=== PATIENT | female | born 1960 | race Caucasian/White ===

== ENCOUNTER → 2019-05-23 09:14 | Outpatient (BNVA) | payer MEDICARE, SELFPAY | PROVIDERS: Family Provider Registered Nurse; PCP Registered Nurse; Visit Provider Registered Nurse | DX: L57.0 Actinic keratosis (principal) | CPT/HCPCS: 88305 ==

== ENCOUNTER 2019-05-31 13:15 | Outpatient (CLI) | payer MEDICARE, SELFPAY ==
--- NOTE | 2019-05-31 13:41 | XR_ITS ---
WS: [id number] SHOULDER RIGHT TECHNIQUE: 3 views of the right shoulder CLINICAL INFORMATION: PAIN IN RIGHT SHOULDER COMPARISON: None. FINDINGS: Mild degenerative narrowing at the AC joint. Moderate downsloping of the acromion. Narrowing of the s ubacromial space. Degenerative arthritis the glenohumeral joint. No acute fractures. Osteopenia. XR/XR shoulder RT min 2V* [id number] IMPRESSION: Rotator cuff arthropathy with moderate degenerative narrowing of the glenohumer al joint. No acute fractures.
== END 2019-05-31 13:16 | disposition home or self-care (01) ==
LOC: RADWPI 13:21
PROVIDERS: Family Provider Registered Nurse; PCP Registered Nurse; Visit Provider Anesthesiology Pain Medicine
DX: M12.811 Other specific arthropathies, not elsewhere classified, right shoulder (principal)
CPT/HCPCS: 73030

== ENCOUNTER → 2019-07-09 13:30 | Outpatient (BNVA) | payer MEDICARE, SELFPAY | PROVIDERS: Family Provider Registered Nurse; PCP Registered Nurse; Visit Provider Specialist | DX: G80.9 Cerebral palsy, unspecified (principal); G40.109 Localization-related (focal) (partial) symptomatic epilepsy and epileptic syndromes with simple partial seizures, not intractable, without status epilepticus; F17.210 Nicotine dependence, cigarettes, uncomplicated | CPT/HCPCS: 99213 ==

== ENCOUNTER → 2019-09-18 09:54 | Outpatient (BNVA) | payer MEDICARE, SELFPAY | PROVIDERS: Family Provider Registered Nurse; PCP Registered Nurse; Visit Provider Internal Medicine Cardiovascular Disease | DX: E78.5 Hyperlipidemia, unspecified (principal) | CPT/HCPCS: 80061 ==

== ENCOUNTER → 2020-01-07 10:43 | Outpatient (BNVA) | payer MEDICARE, SELFPAY | PROVIDERS: Family Provider Registered Nurse; PCP Registered Nurse; Visit Provider Registered Nurse | DX: I10 Essential (primary) hypertension (principal); R53.83 Other fatigue | CPT/HCPCS: 80053; 82607 ==

== ENCOUNTER 2020-01-29 10:32 | Outpatient (CLI) | payer MEDICARE, SELFPAY ==
--- NOTE | 2020-01-29 11:30 | MM_ITS ---
WS: [id number] BILATERAL SCREENING DIGITAL MAMMOGRAM WITH CAD HISTORY: screening breast cancer COMPARISON: 11/17/2018 and 08/01/2017 Bilateral CC and MLO views submitted. Computer aided detection analyzed. Breast composition: There are scattered areas of fibroglandular density. No suspicious masses, microc alcifications or architectural distortion. Benign calcifications in each breast. MM/[place] [id number] IMPRESSION: BI-RADS: 2-Benign FOLLOW UP: 1 Year Follow-up
== END 2020-01-29 10:33 | disposition home or self-care (01) ==
LOC: RADSHAW 10:35
PROVIDERS: PCP Registered Nurse; Visit Provider Nurse Practitioner Women's Health
DX: Z12.31 Encounter for screening mammogram for malignant neoplasm of breast (principal)
CPT/HCPCS: 77067

== ENCOUNTER → 2020-04-29 08:36 | Outpatient (BNVA) | payer MEDICARE, SELFPAY | PROVIDERS: PCP Registered Nurse; Visit Provider Internal Medicine Cardiovascular Disease | DX: E78.2 Mixed hyperlipidemia (principal) | CPT/HCPCS: 80061 ==

== ENCOUNTER → 2020-07-07 12:31 | Outpatient (BNVA) | payer MEDICARE, SELFPAY | PROVIDERS: PCP Registered Nurse; Visit Provider Specialist | DX: G40.219 Localization-related (focal) (partial) symptomatic epilepsy and epileptic syndromes with complex partial seizures, intractable, without status epilepticus (principal); G80.9 Cerebral palsy, unspecified; F17.210 Nicotine dependence, cigarettes, uncomplicated | CPT/HCPCS: 99213; 99214 ==

== ENCOUNTER 2020-08-28 18:43 | Emergency (ER) | payer MEDICARE, SELFPAY ==
[2020-08-28 19:13] VITALS: BP 158/79; PULSE 68; RESP 16; TEMP 36.2; O2SAT 96; BMI 28.3
--- NOTE | 2020-08-28 19:16 | XRR_ITS ---
PROCEDURE INFORMATION: Exam: XR Right Knee Exam date and time: 08/28/2020 7:20 PM Age: 60 years old Clinical indication: Injury or trauma; Fall; Blunt trauma; Knee; Right; Prior surgery; Surgery date: 6+ months; Additional info: Fall, right knee pain TECHNIQUE: Imaging protocol: XR Right knee. Views: 3 views. COMPARISON: No relevant prior studies available. FINDINGS: Nondisplaced oblique fracture of the patella is noted. No other fracture is seen. The joint spaces appear preserved. A suprapatellar joint effusion is noted. XR/XR knee RT 3V* [id number] IMPRESSION: Nondisplaced patellar fracture.
--- NOTE | 2020-08-28 20:47 | ED_ITS ---
HPI - Extremity Problem General: Chief complaint: Extremity Injury, Lower Stated complaint: fell, knee injury Time Seen by Provider: 08/28/20 20:31 Source: patient Mode of arrival: ambulatory Limitations: no limitations History of Present Illness: HPI Narrative: 60-year-old female states she tripped and fall this evening and landed directly onto her right knee. Should she had right knee pain since then is unable to bend her knee. States the pain is sharp in nature and rates it a 6 out of 10. She denies any hip pain. Denies any other injuries. She denies hitting her head denies any neck pain. Associated symptoms: Deny chest pain, fever(s) or rash Review of Systems Const: Denies: fever(s), chills, body aches or change in appetite Eyes: Denies: blurry vision or eye discomfort ENMT: Denies: throat pain or dental pain Card: Denies: chest pain Resp: Denies: dyspnea GI: Denies: abdominal pain, nausea, vomiting or diarrhea : Denies: dysuria Musc: Reports: extremity pain Skin/Breast: Denies: rash Neuro: Denies: headache(s) Psych: Denies: depression Elliot/Lymph: Denies: easy bruising All/Imm: Denies: urticaria PFSH ED PFSH: Medical History Abuse of smoked substance Arrhythmia, atrial Chronic back pain Chronic migraine without aura, intractable, with status migrainosus Complex partial epilepsy COPD, mild Enrolled in chronic care management Essential hypertension Mixed hyperlipidemia Obstructive sleep apnea RLS (restless legs syndrome) SVT (supraventricular tachycardia) Surgical History History of radiofrequency ablation procedure for cardiac arrhythmia (~2017) History of tonsillectomy and adenoidectomy Hx of hysterectomy (~1998) POLLY---one ovary spared; performed by Sanna Hx of knee surgery (~02/2016) right knee Family History Mother Breast cancer 45 Family/Other Breast cancer Breast cancer---- Maternal aunt x 5 Other Heart disease Hypertension Hypothyroid Stroke Denies family history of Colon cancer Ovarian cancer Diabetes Uterine cancer Social History Additional social history: - Tobacco use: Current everyday smoker; 0.5pk daily Alcohol use: Denies Drug use: Denies Physical Exam Const: COMMON NORMALS: no acute distress, patient oriented x3 and healthy appearing HENMT: COMMON NORMALS: normocephalic and atraumatic HEAD & SCALP: normocephalic and atraumatic Eye: COMMON NORMALS: Equal, round and reactive pupils present and EOMs intact bilaterally PUPIL: Yes Equal, round and reactive pupils present Neck/C-Spine: COMMON NORMALS: full ROM and supple Chest: COMMONS NORMALS: normal inspection of the chest and normal palpation of entire chest wall Resp: COMMON NORMALS: normal respiratory effort, No retractions, No use of accessory muscles and clear to auscultation bilaterally AUSCULTATION: clear to auscultation bilaterally Cardio: COMMON NORMALS: regular rate, regular rhythm and No murmurs present (Cardio) RATE: regular rate RHYTHM: regular rhythm GI: COMMON NORMALS: Normal to inspection, nondistended, normoactive bowel sounds present, Soft to palpation, non-tender and no masses PALPATION: Yes Soft to palpation Extremity: NARRATIVE EXTREMITY EXAM: Tenderness over right patella with some swelling distal pulses intact. Neuro: COMMON NORMALS: patient oriented x3, moves all extremities and no focal motor deficits Psych: COMMON NORMALS: mental status grossly normal, Normal thought process present and cooperative THOUGHT PROCESS: Normal thought process present Skin: COMMON NORMALS: no rashes or lesions noted and no wounds GENERAL SKIN EXAM: no rashes or lesions noted Course Vital Signs: Vital signs: Vital Signs Temperature 97.1 F L 08/28/20 19:13 Pulse Rate 68 08/28/20 19:13 Respiratory Rate 16 08/28/20 19:13 Blood Pressure 158/79 08/28/20 19:13 Pulse Oximetry 96 08/28/20 19:13 MDM - Extremity (Nontraumatic) MDM Narrative: Medical decision making narrative: Patient presents with a patellar fracture from a fall. She has no other signs of injuries and had no head injury. Patient placed in a knee immobilizer and crutches and to follow-up with orthopedics. She is return if worsening. Discharge Plan Discharge Patient Disposition: Home Clinical Impression: Fracture, patella Qualifiers: Encounter type: initial encounter Fracture type: closed Fracture morphology: other fracture Laterality: right Qualified Code(s): S82.091A - Other fracture of right patella, initial encounter for closed fracture Condition: Stable Prescriptions: New hydrocodone-acetaminophen 5-325 mg tablet 1 tab PO Q6H PRN (Reason: pain) Qty: 14 RF: 0 No Action Symbicort 160-4.5 mcg/actuation HFA aerosol inhaler 2 puff INHALATION ONCE RF: 0 lidocaine (PF) 20 mg/mL (2 %) solution 20 mg SUBCUT ONCE Qty: 1 RF: 0 lamotrigine [Lamictal] 150 mg tablet 150 mg PO BID Qty: 540 RF: 3 fluticasone propionate [Flonase Allergy Relief] 50 mcg/actuation spray,suspension 1 spray INTRANASAL DAILY Qty: 16 RF: 2 tramadol 50 mg tablet 50 mg PO BID PRNRF: 0 atorvastatin 40 mg tablet 40 mg PO DAILY Qty: 90 RF: 3 diltiazem HCl [Cardizem CD] 240 mg capsule,extended release 24hr 240 mg PO DAILY Qty: 90 RF: 3 lisinopril 10 mg tablet See Rx Instructions .ROUTE .COMPLEX Qty: 90 RF: 3 albuterol sulfate [Ventolin HFA] 90 mcg/actuation HFA aerosol inhaler See Rx Instructions .ROUTE .COMPLEX Qty: 18 RF: 0 albuterol sulfate 90 mcg/actuation HFA aerosol inhaler See Rx Instructions .ROUTE .COMPLEX Qty: 6.7 RF: 2 baclofen 10 mg tablet See Rx Instructions .ROUTE .COMPLEX Qty: 90 RF: 0 meloxicam 15 mg tablet See Rx Instructions .ROUTE .COMPLEX Qty: 90 RF: 0 estradiol 1 mg tablet 1.5 mg PO DAILY Qty: 135 RF: 3 Flovent HFA 110 mcg/actuation HFA aerosol inhaler See Rx Instructions .ROUTE .COMPLEX Qty: 12 RF: 0 Discharge Orders: Discharge ED (Routine); Ordered 08/28/20 Ordered By: Hawk Carson Referrals: Rai Tinoco DO [Physician] - 1-3 days Roberto Pettit FNP [Primary Care Provider] - Discharge Diet: Advance as tolerated Discharge Activity: Resume usual activity Patient Instructions: Patellar Fracture (ED), Opioid Safety Coding Level of Care Code ED Radial Drill Press Set Up Operator for Duane Golden
--- NOTE | 2020-08-29 11:32 | DCPLANNER ---
clinical engineering manager had message to schedule a follow up appointment for patient with ortho for patella fracture. clinical engineering manager called the ortho clinic, spoke with Blanka, gave clinic patients information. clinical engineering manager was told that patients information would be printed and reviewed. Clinic will call patient with appointment information.
--- NOTE | 2020-09-05 15:20 | DCPLANNER ---
Patient had a follow up appointment scheduled for 09.02.[address] Tinoco at [facility] - patient did attend appointment.
== END 2020-08-28 21:07 | disposition home or self-care (01) ==
PROVIDERS: Emergency Provider Emergency Medicine; PCP Registered Nurse
DX: S82.091A Other fracture of right patella, initial encounter for closed fracture (principal); W01.0XXA Fall on same level from slipping, tripping and stumbling without subsequent striking against object, initial encounter; J44.9 Chronic obstructive pulmonary disease, unspecified; I10 Essential (primary) hypertension; E78.2 Mixed hyperlipidemia; F17.210 Nicotine dependence, cigarettes, uncomplicated
CPT/HCPCS: 29530; 73562; 99283; E0114

== ENCOUNTER 2020-09-09 07:03 | Outpatient (CLI) | payer MEDICARE, SELFPAY ==
--- NOTE | 2020-09-09 07:15 | USCV_ITS ---
PaulPerla de jesus Age: 60 Gender: F : 1960 Exam Date: 09/09/2020 07:28 Ordering Phys: Roberto Pettit REFINING EQUIPMENT OPERATOR Technologist: TOD [place] [facility] [place]: [place]IN, SWELLING HISTORY: PT INFORMED ME AFTER EXAM THAT SHE HAS RIGHT BROKEN KNEECAP PROCEDURES: Venous duplex imaging was performed in only the right lower extremity. The following venous structures were evaluated: common femoral vein, profunda vein, proximal portion of the greater saphenous vein, superficial femoral vein, and the popliteal vein. In addition, the posterior tibial and peroneal trunk were evaluated. FINDINGS: Normal 2-D Doppler and augmentation and compressibility throughout the lower extremity venous structures. Additional imaging through the proximal calf veins also reveals no thrombus. Limited evaluation of the greater saphenous vein is patent with no thrombus.. CONCLUSIONS No evidence of DVT in the above-mentioned identifiable veins. Dr Edouard Parsons MD [facility] (Electronically Signed) Final Date: 15 Sep 2020 10:42 S
== END 2020-09-09 07:04 | disposition home or self-care (01) ==
PROVIDERS: PCP Registered Nurse; Visit Provider Registered Nurse
DX: I82.409 Acute embolism and thrombosis of unspecified deep veins of unspecified lower extremity (principal); M79.604 Pain in right leg; M79.89 Other specified soft tissue disorders
CPT/HCPCS: 93971

== ENCOUNTER → 2020-09-23 11:05 | Outpatient (BNVA) | payer MEDICARE, SELFPAY | PROVIDERS: PCP Registered Nurse; Visit Provider Orthopaedic Surgery | DX: S82.091D Other fracture of right patella, subsequent encounter for closed fracture with routine healing (principal); X58.XXXD Exposure to other specified factors, subsequent encounter | CPT/HCPCS: 73560 ==

== ENCOUNTER → 2020-09-30 09:24 | Outpatient (BNVA) | payer MEDICARE, SELFPAY | PROVIDERS: PCP Registered Nurse; Visit Provider Internal Medicine Cardiovascular Disease | DX: E78.2 Mixed hyperlipidemia (principal) | CPT/HCPCS: 80061 ==

== ENCOUNTER 2020-10-06 13:01 | Outpatient (CLI) | payer MEDICARE, SELFPAY ==
--- NOTE | 2020-10-06 13:12 | XRR_ITS ---
PROCEDURE INFORMATION: Exam: XR Right Foot Exam date and time: 10/06/2020 1:12 PM Age: 60 years old Clinical indication: Pain and injury or trauma; Fall; Sprain or strain; Ankle and foot; Right; Injury date: 5 weeks ago; Additional info: M79.671 - pain in right foot TECHNIQUE: Imaging protocol: XR Right foot. Views: 1 or 2 views. COMPARISON: CR Foot 3 views, RIGHT* [id number] 07/23/2014 12:25 PM FINDINGS: Bones/joints: Negative for acute bony abnormality. Bone spur present on the inferior calcaneus.. Soft tissues: Normal. XR/XR foot RT 2V [id number] IMPRESSION: 1. No acute findings. 2. Bone spur calcaneus
--- NOTE | 2020-10-06 13:12 | XRR_ITS ---
PROCEDURE INFORMATION: Exam: XR Right Ankle Exam date and time: 10/06/2020 1:12 PM Age: 60 years old Clinical indication: Pain and injury or trauma; Fall; Sprain or strain; Ankle and foot; Right; Injury date: 5 weeks ago; Additional info: M25.571 - pain in right ankle and joints of right foot TECHNIQUE: Imaging protocol: XR Right ankle. Views: 3 or more views. COMPARISON: CR Foot 3 views, RIGHT* [id number] 07/23/2014 12:25 PM FINDINGS: Bones/joints: Negative for acute bony abnormality Soft tissues: Normal. XR/XR ankle RT min 3V* [id number] IMPRESSION: No acute findings.
== END 2020-10-06 13:02 | disposition home or self-care (01) ==
PROVIDERS: PCP Registered Nurse; Visit Provider Registered Nurse
DX: M25.571 Pain in right ankle and joints of right foot (principal); M79.671 Pain in right foot; M77.31 Calcaneal spur, right foot
CPT/HCPCS: 73610; 73620

== ENCOUNTER → 2020-10-23 14:39 | Outpatient (BNVA) | payer MEDICARE, SELFPAY | PROVIDERS: PCP Registered Nurse; Visit Provider Orthopaedic Surgery | DX: S82.091A Other fracture of right patella, initial encounter for closed fracture (principal) | CPT/HCPCS: 73560 ==

== ENCOUNTER → 2020-12-09 10:51 | Outpatient (BNVA) | payer MEDICARE, SELFPAY | PROVIDERS: PCP Registered Nurse; Visit Provider Orthopaedic Surgery | DX: S82.091D Other fracture of right patella, subsequent encounter for closed fracture with routine healing (principal); X58.XXXD Exposure to other specified factors, subsequent encounter | CPT/HCPCS: 73560 ==

== ENCOUNTER 2020-12-16 10:29 | Outpatient (RCR) | payer MEDICARE, SELFPAY | END 2020-12-16 23:59 | disposition home or self-care (01) | LOC: SPT 10:29 | PROVIDERS: PCP Registered Nurse; Referring Provider Orthopaedic Surgery; Visit Provider Orthopaedic Surgery | DX: S82.001D Unspecified fracture of right patella, subsequent encounter for closed fracture with routine healing (principal); X58.XXXD Exposure to other specified factors, subsequent encounter | CPT/HCPCS: 97161 ==

== ENCOUNTER 2020-12-17 06:00 | Outpatient (RCR) | payer MEDICARE, SELFPAY | END 2021-01-15 23:59 | disposition home or self-care (01) | LOC: SPT 06:00 | PROVIDERS: PCP Registered Nurse; Referring Provider Orthopaedic Surgery; Visit Provider Orthopaedic Surgery | DX: S82.001D Unspecified fracture of right patella, subsequent encounter for closed fracture with routine healing (principal); X58.XXXD Exposure to other specified factors, subsequent encounter | CPT/HCPCS: 97110 ==

== ENCOUNTER → 2021-01-08 09:38 | Outpatient (BNVA) | payer MEDICARE, SELFPAY | PROVIDERS: PCP Registered Nurse; Visit Provider Registered Nurse | DX: G89.29 Other chronic pain; I10 Essential (primary) hypertension; M54.5 Low back pain | CPT/HCPCS: 80053; 85025 ==

== ENCOUNTER 2021-01-16 06:00 | Outpatient (RCR) | payer MEDICARE, SELFPAY | END 2021-02-15 23:59 | disposition home or self-care (01) | LOC: SPT 06:00 | PROVIDERS: PCP Registered Nurse; Referring Provider Orthopaedic Surgery; Visit Provider Orthopaedic Surgery | DX: S82.001D Unspecified fracture of right patella, subsequent encounter for closed fracture with routine healing (principal); X58.XXXD Exposure to other specified factors, subsequent encounter | CPT/HCPCS: 97110 ==

== ENCOUNTER → 2021-01-20 10:47 | Outpatient (BNVA) | payer MEDICARE, SELFPAY | PROVIDERS: PCP Registered Nurse; Visit Provider Orthopaedic Surgery | DX: S82.091A Other fracture of right patella, initial encounter for closed fracture (principal); X58.XXXA Exposure to other specified factors, initial encounter | CPT/HCPCS: 73560 ==

== ENCOUNTER 2021-02-13 14:37 | Outpatient (CLI) | payer MEDICARE, SELFPAY ==
--- NOTE | 2021-02-13 16:00 | MR_ITS ---
WS: [id number] MRI RIGHT KNEE HISTORY: T14.8XXA - Other injury of unspecified body region, patient fell 2 months ago. COMPARISON: 01/20/2021 Anterior cruciate ligament: Intact. Posterior cruciate ligament: Intact. Medial collateral ligament: Very small amount of edema along the MCL. No tear. Posterior lateral corner structures: Intact. Medial menisci: Vertical tear in the posterior horn towards the meniscal root. Anterior horn is yael l. Towards the meniscal root and the intercondylar notch is a lobulated soft tissue which is anterior to the PCL. Lateral meniscus: Intact. Normal signal, size and shape. Extensor mechanism: Distal quadriceps tendon is normal. Mild tendinopathy in the proximal patellar te ndon. Fluid and soft tissue: No significant joint effusion. No Benz's cyst. Osseous and articular structures: Patellofemoral compartment: Nondisplaced fracture extending through the mid body of the patella. Ther e is no displacement. Edema still noted along the fracture line in the inferior third of the patella. Small defect in the cartilage at the site of fracture. No displacement. Patellar retinaculum is inta ct. Medial compartment: Very mild narrowing of the medial compartment. Thinning and fissuring of the cart ilage. Lateral compartment: Normal. MR/MR knee RT wo con* [id number] IMPRESSION: 1. Abnormal lobulated soft tissue in the posterior medial knee adjacent to the meniscal root. This may be part of a meniscal tear or free fragment in the shreya nt. There is also an associated vertical tear of the posterior horn medial meni scus. 2. Healing nondisplaced mid patellar fracture with edema. 3. Mild patellar tendinopathy.
== END 2021-02-13 14:38 | disposition home or self-care (01) ==
LOC: RADSHAW 14:41
PROVIDERS: PCP Registered Nurse; Visit Provider Orthopaedic Surgery
DX: S82.001A Unspecified fracture of right patella, initial encounter for closed fracture (principal); W19.XXXA Unspecified fall, initial encounter
CPT/HCPCS: 73721

== ENCOUNTER → 2021-04-01 09:25 | Outpatient (BNVA) | payer MEDICARE, SELFPAY | PROVIDERS: PCP Registered Nurse; Visit Provider Orthopaedic Surgery | DX: M17.11 Unilateral primary osteoarthritis, right knee (principal); S82.001D Unspecified fracture of right patella, subsequent encounter for closed fracture with routine healing; X58.XXXD Exposure to other specified factors, subsequent encounter | CPT/HCPCS: 73560; 73565 ==

== ENCOUNTER → 2021-04-21 11:49 | Outpatient (BNVA) | payer MEDICARE, SELFPAY | PROVIDERS: PCP Registered Nurse; Visit Provider Internal Medicine Cardiovascular Disease | DX: E78.2 Mixed hyperlipidemia (principal) | CPT/HCPCS: 80061 ==

== ENCOUNTER 2021-05-28 10:14 | Outpatient (CLI) | payer MEDICARE, SELFPAY ==
--- NOTE | 2021-05-28 11:00 | MM_ITS ---
WS: [id number] BILATERAL SCREENING DIGITAL MAMMOGRAM WITH CAD HISTORY: Z12.39 - Encounter for other screening for malignant neoplasm... COMPARISON: 01/29/2020 11/17/2018 Bilateral CC and MLO views submitted. Computer aided detection analyzed. Breast composition: There are scattered areas of fibroglandular density. No suspicious masses, microc alcifications or architectural distortion. MM/[place] [id number] IMPRESSION: BI-RADS: 1-Negative FOLLOW UP: 1 Year Follow-up
== END 2021-05-28 10:15 | disposition home or self-care (01) ==
LOC: RADSHAW 10:19
PROVIDERS: PCP Registered Nurse; Visit Provider Nurse Practitioner Women's Health
DX: Z12.31 Encounter for screening mammogram for malignant neoplasm of breast (principal)
CPT/HCPCS: 77067

== ENCOUNTER → 2021-07-07 10:13 | Outpatient (BNVA) | payer MEDICARE, SELFPAY | PROVIDERS: PCP Registered Nurse; Visit Provider Specialist | DX: G40.209 Localization-related (focal) (partial) symptomatic epilepsy and epileptic syndromes with complex partial seizures, not intractable, without status epilepticus (principal); G80.9 Cerebral palsy, unspecified; I47.1 Supraventricular tachycardia | CPT/HCPCS: 99214 ==

== ENCOUNTER 2021-07-28 21:36 | Emergency (ER) | payer SELFPAY ==
[2021-07-28 21:41] VITALS: BP 157/82; PULSE 73; RESP 18; TEMP 36.5; O2SAT 98; BMI 25.4
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
[2021-07-28 21:53] VITALS: BP 157/82; PULSE 73; RESP 18; TEMP 36.5; O2SAT 98
== END 2021-07-28 21:54 | disposition home or self-care (01) ==
PROVIDERS: Emergency Provider Nurse Practitioner Family; PCP Registered Nurse
DX: S51.811A Laceration without foreign body of right forearm, initial encounter (principal); S50.811A Abrasion of right forearm, initial encounter; V40.5XXA Car driver injured in collision with pedestrian or animal in traffic accident, initial encounter
CPT/HCPCS: 99282

== ENCOUNTER 2021-07-31 08:25 | Outpatient (CLI) | payer MEDICARE, SELFPAY ==
--- NOTE | 2021-07-31 09:15 | US_ITS ---
WS: [id number] Gallbladder and right upper quadrant ultrasound, 07/31/2021 Clinical Data: R10.11 - Right upper quadrant pain Comparison: None. Findings: The gallbladder shows no sludge or stone. The wall measures 0.2 cm with no pericholecystic fluid. The common bile duct is 0.5 cm and there are no intrahepatic ductal abnormalities. Liver shows no cysts, masses or dilated intrahepatic ducts. The pancreas is not obscured by overlying bowel gas and no cyst, pseudocyst, or evidence of pancreati tis is noted. Right kidney measures 10.9 cm and no cyst, masses or hydronephrosis can be seen. The aorta show no vascular abnormalities. US/US gall bladder [id number] Impression: Negative gallbladder.
== END 2021-07-31 08:26 | disposition home or self-care (01) ==
LOC: RAD 08:29
PROVIDERS: PCP Registered Nurse; Visit Provider Registered Nurse
DX: R10.11 Right upper quadrant pain (principal)
CPT/HCPCS: 76705

== ENCOUNTER → 2021-08-06 10:49 | Outpatient (BNVA) | payer MEDICARE, SELFPAY | PROVIDERS: PCP Registered Nurse; Visit Provider Registered Nurse | DX: R10.9 Unspecified abdominal pain (principal); R10.11 Right upper quadrant pain; R11.2 Nausea with vomiting, unspecified | CPT/HCPCS: 80053; 80061; 85025; 86140 ==

== ENCOUNTER → 2021-08-10 11:26 | Outpatient (BNVA) | payer MEDICARE, SELFPAY | PROVIDERS: PCP Registered Nurse; Referring Provider Registered Nurse; Visit Provider Surgery | DX: R10.11 Right upper quadrant pain (principal); F17.210 Nicotine dependence, cigarettes, uncomplicated | CPT/HCPCS: 99203 ==

== ENCOUNTER 2021-08-11 10:42 | Outpatient (RCR) | payer MEDICARE, SELFPAY | END 2021-08-15 23:59 | disposition home or self-care (01) | LOC: SPT 10:42 | PROVIDERS: PCP Registered Nurse; Referring Provider Specialist; Visit Provider Specialist | DX: G80.9 Cerebral palsy, unspecified (principal) | CPT/HCPCS: 97161 ==

== ENCOUNTER 2021-08-31 07:49 | Outpatient (CLI) | payer MEDICARE, SELFPAY ==
--- NOTE | 2021-08-31 08:30 | FL_ITS ---
WS: [id number] ESOPHAGRAM WITH FLUOROSCOPY HISTORY: DYSPHAGIA COMPARISON: None available. FLUOROSCOPY TIME: 0min [id number] # of spot films: 150 Esophagus and swallowing function: Patient swallowed the barium mixture without difficulty. No persis tent area of occlusion or stenosis. No mucosal abnormalities. Patient also swallowed the barium table t without difficulty. Mild osteophyte encroachment into the cervical esophagus no high-grade stenosis . Gastroesophageal reflux: None. Hiatal hernia: Small reducible hiatal hernia. FL/FL barium swallow [id number] IMPRESSION: 1. No high-grade stricture or significant stenosis. 2. Small reducible hiatal hernia.
== END 2021-08-31 07:50 | disposition home or self-care (01) ==
PROVIDERS: PCP Registered Nurse; Visit Provider Surgery
DX: R13.10 Dysphagia, unspecified (principal); K44.9 Diaphragmatic hernia without obstruction or gangrene
CPT/HCPCS: 74220

== ENCOUNTER 2021-09-04 07:13 | Outpatient (CLI) | payer MEDICARE, SELFPAY ==
--- NOTE | 2021-09-04 08:00 | NM_ITS ---
WS: [id number] NUCLEAR MEDICINE HIDA SCAN WITH GALLBLADDER EJECTION FRACTION HISTORY: ruq pain COMPARISON: None available. TECHNIQUE: The patient was intravenously injected with 8.1 mCi of TC99m Mebrofenin. Immediate imaging over the right upper quadrant was followed by 5 minute image and additional images for a total of 60 minutes. Normal uptake of radiotracer throughout the liver. Activity identified in the gallbladder at 15 minutes and well distended by 60 minutes. Activity in the proximal small bowel was seen by 60 minutes. Good washout of the radiotracer from the liver by 60 minutes. The patient then drank 8 ounces of Ensure Plus. Ejection fraction at 60 minutes was 72%. Normal GB ej ection fraction is 35-75%. Post fatty meal symptoms: None. NM/NM hepatobiliary w phar* [id number] IMPRESSION: 1. Normal HIDA scan. 2. Normal gallbladder ejection fraction.
== END 2021-09-04 07:14 | disposition home or self-care (01) ==
LOC: RAD 07:15
PROVIDERS: PCP Registered Nurse; Visit Provider Surgery
DX: R10.11 Right upper quadrant pain (principal)
CPT/HCPCS: 78227; A9537

== ENCOUNTER → 2021-09-09 14:27 | Outpatient (BNVA) | payer MEDICARE, SELFPAY | PROVIDERS: PCP Registered Nurse; Visit Provider Surgery | DX: Z09 Encounter for follow-up examination after completed treatment for conditions other than malignant neoplasm (principal); R10.11 Right upper quadrant pain | CPT/HCPCS: 99212 ==

== ENCOUNTER → 2021-10-27 13:40 | Outpatient (BNVA) | payer MEDICARE, SELFPAY | PROVIDERS: PCP Registered Nurse; Visit Provider Internal Medicine Cardiovascular Disease | DX: I47.1 Supraventricular tachycardia (principal); E78.2 Mixed hyperlipidemia; I10 Essential (primary) hypertension; R60.0 Localized edema; G47.33 Obstructive sleep apnea (adult) (pediatric); F17.200 Nicotine dependence, unspecified, uncomplicated | CPT/HCPCS: 99213; 99214 ==

== ENCOUNTER → 2022-04-27 11:51 | Outpatient (BNVA) | payer MEDICARE, SELFPAY | PROVIDERS: PCP Registered Nurse; Visit Provider Internal Medicine Cardiovascular Disease | DX: I47.1 Supraventricular tachycardia (principal); G47.33 Obstructive sleep apnea (adult) (pediatric); E78.2 Mixed hyperlipidemia; I10 Essential (primary) hypertension; F17.200 Nicotine dependence, unspecified, uncomplicated | CPT/HCPCS: 99214 ==

== ENCOUNTER 2022-06-12 10:17 | Emergency (ER) | payer MEDICARE, SELFPAY ==
[2022-06-12] VITALS (26 sets, daily range): BP systolic 116–133; BP diastolic 52–73; PULSE 51–69; RESP 12–30; O2SAT 94–100; BMI 26.7
--- NOTE | 2022-06-12 10:27 | ECG_ITS ---
[facility] Test Date: 2022-06-12 Pat Name: Perla Miller Department: Room: Gender: Female Manager Medicaid: : 1960 Requested By: Bennie Vásquez Order Number: [id number] Cameron MD: Antonio Graves M.D. Measurements Intervals [place] Rate: 51 P: 48 HI: 139 QRS: 119 QRSD: 123 T: 71 QT: 466 QTc: 431 Interpretive Statements SINUS BRADYCARDIA RIGHT AXIS DEVIATION [QRS AXIS > 100] RIGHT BUNDLE BRANCH BLOCK [120+ ms QRS DURATION, UPRIGHT V1, 40+ ms S IN I/aVL/V4/V5/V6] BORDERLINE ST ELEVATION IN INFERIOR LEADS, LIKELY INFARCT, AGE INDETERMINATE Compared to ECG 12/29/2016 15:28:56 Right-axis deviation now present Right bundle-branch block now present ST (T wave) deviation now present Myocardial infarct finding now present Sinus rhythm no longer present Incomplete right bundle-branch block no longer present Atrial abnormality no longer present Electronically Signed On 06-12-2022 12:14:30 ART EDITOR by Antonio Graves M.D. [id number]
--- NOTE | 2022-06-12 10:40 | W.ED.DIZZY ---
HPI - Dizziness General: Chief Complaint: Dizziness Stated Complaint: DIZZINESS Time Seen by Provider: 06/12/22 10:20 Source: patient and EMS Mode of arrival: EMS Limitations: no limitations History of Present Illness: HPI Narrative: 62-year-old female presents to the emergency department after suffering a near syncopal event with dizziness at work. Patient reports she woke up in her usual state of health, had breakfast, drink coffee and was doing her normal routine at work. She suddenly started to feel very weak and dizzy. Her knees almost buckled. She did not have any associated chest pain, shortness of breath, seizure, diaphoresis, nausea, vomiting. She recovered over the next 10 minutes or so. She reports she still feels a little dizzy especially when she turns her head. She does have a headache. She denies any known history of coronary artery disease, thromboembolic disease. She is a longtime smoker with a history of high cholesterol, tacky arrhythmia with a history of ablation(chart review reports SVT), seizure disorder. Associated symptoms: Denies chest pain, chills, headache(s), nausea or vomiting Associated neuro symptoms: Deny numbness in extremities Review of Systems General: Reports: 10 or more systems reviewed and unremarkable except in HPI and below Const: Denies: fever(s), chills or body aches Eyes: Denies: change in vision, blurry vision or photophobia ENMT: Denies: throat pain Card: Reports: lightheadedness and pre-syncope; Denies: chest pain, edema, swelling of feet/ankles or acrocyanosis Resp: Reports: wheezing; Denies: dyspnea, productive cough, pain on inspiration or hemoptysis GI: Denies: abdominal pain, nausea, vomiting or diarrhea : Denies: flank pain, dysuria or urinary frequency Musc: Denies: neck pain, back pain, extremity pain or extremity swelling Skin/Breast: Denies: rash or erythema Neuro: Denies: headache(s), numbness in extremities, weakness in extremities, lack of coordination or difficulty walking PFS ED PFSH: Medical History Abuse of smoked substance Arrhythmia, atrial Chronic back pain Chronic migraine without aura, intractable, with status migrainosus Complex partial epilepsy COPD, mild Enrolled in chronic care management Essential hypertension History of nonmelanoma skin cancer Mixed hyperlipidemia No pertinent past medical history neghx:dm,thyroid PCP: Sumanth Pettit Obstructive sleep apnea RLS (restless legs syndrome) SVT (supraventricular tachycardia) Surgical History History of radiofrequency ablation procedure for cardiac arrhythmia (~2017) History of tonsillectomy and adenoidectomy Hx of hysterectomy (~1998) POLLY---one ovary spared; performed by Sanna Hx of knee surgery (~02/2016) right knee Family History Mother Breast cancer dx--45 Stroke Hypertension Thyroid disease Family/Other Breast cancer Breast cancer---- Maternal aunt x 5 Father Hypertension Denies family history of Colon cancer Ovarian cancer Diabetes Uterine cancer Social History Smoking and tobacco status: current every day smoker (0.5 PPD) Physical Exam Narrative: EXAM NARRATIVE: Patient has the typical appearance of a longtime smoker with changes to the hair, voice ,nails and skin. Const: COMMON NORMALS: no limitations, alert and well nourished EXAM LIMITATIONS: no altered mental status HENMT: COMMON NORMALS: normocephalic, atraumatic and external ears normal HEAD & SCALP: normocephalic and atraumatic EXTERNAL EAR: Yes external ears normal MOUTH: no muffled voice Eye: COMMON NORMALS: EOMs intact bilaterally, conjunctivae normal and no scleral icterus CONJUNCTIVA: Yes conjunctivae normal OTHER: The pupils are equal round and reactive to light. Her extraocular movements are intact. She does have endpoint nystagmus when looking all the way to the right. This could be physiologic or may be a sign of some peripheral vertigo Neck/C-Spine: COMMON NORMALS: no JVD GENERAL: Yes normal visual inspection and Yes trachea midline Resp: COMMON NORMALS: normal respiratory effort and No use of accessory muscles EFFORT & INSPECTION: Yes able to speak in complete sentences OTHER: Wheezing is present on expiration Cardio: COMMON NORMALS: no JVD and regular rhythm; negative for regular rate (Bradycardia) RATE: abnormal rate (Bradycardia) RHYTHM: regular rhythm GI: COMMON NORMALS: Soft to palpation and non-tender PALPATION: Yes Soft to palpation and No Guarding due to palpation present (GI) Extremity: COMMON NORMALS: normal to inspection (No evidence of lower extremity or upper extremity DVT or cellulitis) Neuro: COMMON NORMALS: moves all extremities, no focal motor deficits and no sensory deficits noted SENSORIUM/ORIENTATION: Yes alert SPEECH: speech normal Psych: COMMON NORMALS: mental status grossly normal, Normal thought process present, cooperative, normal affect and speech normal SPEECH: Yes normal speech THOUGHT PROCESS: Normal thought process present Skin: COMMON NORMALS: no rashes or lesions noted, turgor normal and no jaundice GENERAL SKIN EXAM: no rashes or lesions noted and turgor normal Course Vital Signs: Vital signs: Vital Signs Pulse Rate 53 L 06/12/22 13:30 Respiratory Rate 18 06/12/22 13:30 Blood Pressure 123/69 06/12/22 13:30 Pulse Oximetry 98 06/12/22 13:30 Oxygen Delivery Me thod 06/12/22 10:27 MDM - Dizziness Medical Decision Making The patient's EKG taken at 10:[address] elevation of 1 mm at the J-point in leads III and aVF. There is some more subtle ST elevation in lead II. There is no significant reciprocal depression. The T waves in the inferior leads are slightly prominent. No ectopy. This is a sinus bradycardia. I contacted Dr. Elam and he was able to review both this EKG and the previous EKG from December 29, 2016. We have both noted that the ST changes although subtle are present. He would like to do serial EKGs and run troponin. Currently the patient has a headache and feels sort of weak but is otherwise asymptomatic. She has not had any other anginal equivalents. As noted in the physical exam, the patient does have some endpoint nystagmus when looking to the right. She describes a sort of dizziness with the room spinning clockwise. Her ears are unremarkable. She denies any medication changes or skipping any medicines. She had adequate food and drink this morning. She has a chronic sinus bradycardia due to her Cardizem. She does occasionally get vertigo which is also on the differential diagnosis. Her risk factors for acute coronary syndrome include smoking, hypertension, hyperlipidemia. I have a low pretest probability for subarachnoid hemorrhage, subdural, pulmonary embolism, dissection. She currently has no symptoms of acute GI bleeding other than dizziness . She does not have any focal neurologic deficits and CVA seems less likely. Her hints exam was not suggestive of central etiology UPDATE: Serial EKGs were performed. They were unchanged. There was no significant reciprocal change. Initial troponin was normal. A delta troponin 2 hours later was also normal. The patient was given IV fluids, meclizine, scopolamine and her symptoms resolved. Her lab work-up is otherwise unremarkable with the exception of an elevated BUN and BUN to creatinine ratio, mild low sodium, mild anemia. No evidence of urinary tract infection. Again, on repeat assessment, patient asymptomatic and well-appearing. Patient will continue on baby aspirin daily and I have encouraged her to stop smoking. She was given return precautions. She is appropriate for discharge at this time. Lab Data 06/12/22 10:25 06/12/22 10:25 Radiology Impressions Chest X-Ray 06/12/22 10:56 IMPRESSION: No evidence of focal consolidation. COPD changes. Laboratory Results WBC 8.3 10^3/uL (4.0-10.0) 06/12/22 10:25 RBC 3.81 10^6/uL (4.1-5.3) L 06/12/22 10:25 Hgb 11.4 g/dL (11.5-15.3) L 06/12/22 10:25 Hct 37.0 % (37.0-47.0) 06/12/22 10:25 MCV 97.1 fl (81-99) 06/12/22 10:25 MCH 29.9 pg (28.0-34.0) 06/12/22 10:25 MCHC 30.8 g/dL (30.0-36.0) 06/12/22 10:25 RDW 14.8 % (12.1-15.1) 06/12/22 10:25 Plt Count 308 10^3/cmm (130-400) 06/12/22 10:25 MPV 9.3 fL (7.4-10.4) 06/12/22 10:25 Neut % (Auto) 61.6 % 06/12/22 10:25 Lymph % (Auto) 29.6 % 06/12/22 10:25 [place] % (Auto) 7.3 % 06/12/22 10:25 Eos % (Auto) 0.0 % 06/12/22 10:25 Baso % (Auto) 1.1 % 06/12/22 10:25 Neut # (Auto) 5.11 10^3/uL (1.8-7.7) 06/12/22 10:25 Lymph # (Auto) 2.5 10^3/uL (0.8-4.8) 06/12/22 10:25 [place] # (Auto) 0.6 10^3/uL (0.2-0.9) 06/12/22 10:25 Eos # (Auto) 0.0 10^3/uL (0.0-0.8) 06/12/22 10:25 Baso # (Auto) 0.1 10^3/uL (0.0-0.1) 06/12/22 10:25 Nucleated RBC % (auto) 0 % 06/12/22 10:25 Nucleated RBCs # 0.0 /100WBC 06/12/22 10:25 Sodium 134 mmol/L (136-145) L 06/12/22 10:25 Potassium 4.8 mmol/L (3.5-5.1) 06/12/22 10:25 Chloride 100 mmol/L (98-107) 06/12/22 10:25 Carbon Dioxide 23 mmol/L (22-29) 06/12/22 10:25 Anion Gap 15.8 (5-19) 06/12/22 10:25 BUN 30 mg/dL (8-23) H 06/12/22 10:25 Creatinine 0.9 mg/dL (0.5-0.9) 06/12/22 10:25 GFR Calculation 63.7 mL/min (90-130) L 06/12/22 10:25 Glucose 88 mg/dL (65-115) 06/12/22 10:25 Calculated Osmolality 284 mOsm/kg (285-295) L 06/12/22 10:25 Calcium 8.7 mg/dL (8.5-10.5) 06/12/22 10:25 Magnesium 2.2 mg/dL (1.7-2.3) 06/12/22 10:25 Total Bilirubin 0.2 mg/dL (0.15-1.2) 06/12/22 10:25 AST 16 U/L (0-32) 06/12/22 10:25 ALT 7 U/L (0-33) 06/12/22 10:25 Alkaline Phosphatase 68 U/L (35-105) 06/12/22 10:25 Troponin T Baseline 10 ng/L (0-10) 06/12/22 10:25 Troponin T 120 Minute 7.60 ng/L (0-10) 06/12/22 12:43 Total Protein 6.2 g/dL (6.6-8.7) L 06/12/22 10:25 Albumin 3.8 g/dL (3.5-5.2) 06/12/22 10:25 Globulin 2.4 g/dL (1.3-4.6) 06/12/22 10:25 Urine Color Straw (Yellow) 06/12/22 11:10 Urine Appearance Clear (CLEAR) 06/12/22 11:10 Urine pH 5 (5-7) 06/12/22 11:10 Ur Specific [place] 1.010 (1.005-1.030) 06/12/22 11:10 Urine Protein Neg (Negative) 06/12/22 11:10 Urine Glucose (UA) Norm (Normal) 06/12/22 11:10 Urine Ketones Negative (Negative) 06/12/22 11:10 Urine Blood Neg (Negative) 06/12/22 11:10 Urine Nitrate Negative (Negative) 06/12/22 11:10 Urine Bilirubin Neg (Negative) 06/12/22 11:10 Urine Urobilinogen Norm mg/dL (Negative) 06/12/22 11:10 Ur Leukocyte Esterase Negative (Negative) 06/12/22 11:10 Discharge Plan Discharge Patient Disposition: Home Clinical Impression: Positional lightheadedness, Acute dehydration, Abnormal ECG, Smokes tobacco daily Condition: Stable Prescriptions: New Children's Aspirin 81 mg tablet,chewable 81 mg PO DAILY Qty: 30 0RF No Action fluticasone propionate [Flonase Allergy Relief] 50 mcg/actuation spray,suspension 1 spray INTRANASAL DAILY Qty: 16 2RF Rx Instructions: administer into each nostril ciclopirox 8 % solution 1 applic topical DAILY 28 Days Qty: 6.6 6RF Rx Instructions: Apply to nails daily, do not wash nails for 8 hours post application. Remove with alcohol every 7 days. tramadol 50 mg tablet 50 mg PO TID PRN estradiol 1 mg tablet 1.5 mg PO DAILY Qty: 135 3RF methylprednisolone acetate 80 mg/mL suspension 80 mg IM ONCE Qty: 1 0RF benzonatate 100 mg capsule 100 mg PO TID PRN (Reason: cough) Qty: 20 0RF lamotrigine [Lamictal] 150 mg tablet 150 mg PO BID Qty: 180 3RF diltiazem HCl 240 mg capsule,extended release 24hr See Rx Instructions .ROUTE .COMPLEX Qty: 90 2RF Dose Instruction: TAKE 1 CAPSULE EVERY DAY Rx Instructions: TAKE 1 CAPSULE EVERY DAY atorvastatin 40 mg tablet See Rx Instructions .ROUTE .COMPLEX Qty: 90 2RF Dose Instruction: TAKE 1 TABLET EVERY DAY Rx Instructions: TAKE 1 TABLET EVERY DAY lisinopril 10 mg tablet See Rx Instructions .ROUTE .COMPLEX Qty: 90 3RF Dose Instruction: TAKE 1 TABLET EVERY DAY Rx Instructions: TAKE 1 TABLET EVERY DAY mupirocin 2 % ointment 1 applic topical BID Qty: 22 1RF Rx Instructions: Apply to affected area(s) until healed furosemide 20 mg tablet 20 mg PO DAILY PRN (Reason: edema) Qty: 100 3RF potassium chloride 8 mEq capsule, extended release 8 meq PO DAILY Qty: 100 3RF Rx Instructions: Take with Furosemide gabapentin 300 mg capsule 300 mg PO TID Qty: 270 3RF meloxicam 15 mg tablet See Rx Instructions .ROUTE .COMPLEX Qty: 90 0RF Dose Instruction: TAKE 1 TABLET EVERY DAY Rx Instructions: TAKE 1 TABLET EVERY DAY albuterol sulfate 90 mcg/actuation HFA aerosol inhaler See Rx Instructions .ROUTE .COMPLEX Qty: 54 0RF Dose Instruction: INHALE 2 PUFFS BY MOUTH EVERY 6 HOURS NEEDED FOR BRONCHOSPASM Rx Instructions: INHALE 2 PUFFS BY MOUTH EVERY 6 HOURS NEEDED FOR BRONCHOSPASM baclofen 10 mg tablet See Rx Instructions .ROUTE .COMPLEX Qty: 90 0RF Dose Instruction: TAKE 1 TABLET EVERY DAY NEEDED FOR MUSCLE SPASM(S) Rx Instructions: TAKE 1 TABLET EVERY DAY NEEDED FOR MUSCLE SPASM(S) pantoprazole 40 mg tablet,delayed release (DR/EC) See Rx Instructions .ROUTE .COMPLEX Qty: 90 3RF Dose Instruction: TAKE 1 TABLET BY MOUTH DAILY Rx Instructions: TAKE 1 TABLET BY MOUTH DAILY RESENT IN INSURANCE PAYS FOR PT TO GO TO [facility] Discharge Orders: Discharge ED (Routine); Ordered 06/12/22 Ordered By: Bennie Vásquez Referrals: Roberto Pettit, AUTO BODY STRAIGHTENER [Primary Care Provider] - 4-7 days (Near syncope.) Discharge Diet: Advance as tolerated Discharge Activity: Increase activity as tolerated Patient Instructions: Near Syncope (ED), Dizziness (ED) Activity Restrictions/Additional Instructions: Return to ER for recurrent dizziness or symptoms such as chest discomfort, palpitations, unusual sweatng, jaw/arm pain, bloody stools, low blood pressure, or worsening symptoms. Avoid cigarettes as it increases your risk for stroke and heart attack. Coding Level of Care Code ED Mixer Driver for Duane Golden
[2022-06-12] MEDS: meclizine 25 mg tablet PO (10:42)
[2022-06-12] MEDS: sodium chloride 0.9% 500 ML 999 ML IV (10:42)
[2022-06-12] MEDS: acetaminophen 325 mg Tablet 650 MG PO (10:42)
[2022-06-12] MEDS: scopolamine 1.5 Patch 1 PATCH TRANSDERMA (10:42)
[2022-06-12 10:49] LABS: Basophils # 0.1 10^3/uL (0.0-0.1); Basophils % 1.1 %; Hemoglobin 11.4 g/dL (11.5-15.3); Lymphocytes # 2.5 10^3/uL (0.8-4.8); Lymphocytes % 29.6 %; Mean Corpuscular HGB Conc 30.8 g/dL (30.0-36.0); Mean Corpuscular Hemoglobin 29.9 pg (28.0-34.0); Mean Corpuscular Volume 97.1 fl (81-99); Mean Platelet Volume 9.3 fL (7.4-10.4); Monocytes # 0.6 10^3/uL (0.2-0.9); Monocytes % 7.3 %; Neutrophils # 5.11 10^3/uL (1.8-7.7); Neutrophils % 61.6 %; Nucleated Red Blood Cells % 0 %; Platelet Count 308 10^3/cmm (130-400); Red Blood Count 3.81 10^6/uL (4.1-5.3); Red Cell Distribution Width 14.8 % (12.1-15.1); White Blood Count 8.3 10^3/uL (4.0-10.0)
[2022-06-12] MEDS: aspirin 81 mg Chew Tablet 324 MG PO (10:56)
--- NOTE | 2022-06-12 10:56 | ECG_ITS ---
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 Measurements Intervals [place] Rate: 50 P: 55 OK: 138 QRS: 131 QRSD: 126 T: 73 QT: 473 QTc: 434 Interpretive Statements SINUS BRADYCARDIA RIGHT BUNDLE BRANCH BLOCK [120+ ms QRS DURATION, UPRIGHT V1, 40+ ms S IN I/aVL/V4/V5/V6] LEFT POSTERIOR FASCICULAR BLOCK [QRS AXIS > 109, INFERIOR Q] Compared to ECG 06/12/2022 10:33:07 Left posterior fascicular block now present Right-axis deviation no longer present ST (T wave) deviation no longer present Myocardial infarct finding no longer present Electronically Signed On 06-12-2022 12:13:19 RN HEMODIALYSIS CHARGE by Antonio Graves M.D. [email or web address]
--- NOTE | 2022-06-12 10:56 | XRR_ITS ---
PROCEDURE INFORMATION: Exam: XR Chest Exam date and time: 06/12/2022 11:28 AM Age: 62 years old Clinical indication: Other: Dizziness; Additional info: Dizziness, possible acs TECHNIQUE: Imaging protocol: Radiologic exam of the chest. Views: 1 view. COMPARISON: CR XR chest 1V [id number] 12/29/2016 3:24 PM FINDINGS: Lungs: The lungs are somewhat hyperinflated with increased interstitial markings, likely representing COPD. No evidence of focal consolidation to suggest pneumonia. Pleural spaces: Unremarkable. No pleural effusion. No pneumothorax. Heart/Mediastinum: Stable cardiomediastinal silhouette. Bones/joints: Unremarkable. XR/XR chest 1V portable [id number] IMPRESSION: No evidence of focal consolidation. COPD changes.
[2022-06-12 11:04] LABS: Alanine Aminotransferase 7 U/L (0-33); Albumin Level 3.8 g/dL (3.5-5.2); Alkaline Phosphatase 68 U/L (35-105); Blood Urea Nitrogen 30 mg/dL (8-23); Calcium 8.7 mg/dL (8.5-10.5); Carbon Dioxide 23 mmol/L (22-29); Chloride 100 mmol/L (98-107); Globulin 2.4 g/dL (1.3-4.6); Glomerular Filtration Rate 63.7 mL/min (90-130); Glucose 88 mg/dL (65-115); Magnesium 2.2 mg/dL (1.7-2.3); Osmolality Calculated 284 mOsm/kg (285-295); Sodium 134 mmol/L (136-145); Total Bilirubin 0.2 mg/dL (0.15-1.2); Total Protein 6.2 g/dL (6.6-8.7)
[2022-06-12 11:06] LABS: Troponin(5th) Baseline 10 ng/L (0-10)
--- NOTE | 2022-06-12 11:08 | ECG_ITS ---
[facility] Test Date: 2022-06-12 Pat Name: Perla Miller Department: Room: Gender: Female Sales Expert Home Theater: : 1960 Requested By: Bennie Vásquez Order Number: [id number] Cameron MD: Antonio Graves M.D. Measurements Intervals [place] Rate: 50 P: 52 [place]: 137 QRS: 113 QRSD: 124 T: 73 QT: 488 QTc: 449 Interpretive Statements SINUS BRADYCARDIA RIGHT AXIS DEVIATION [QRS AXIS > 100] RIGHT BUNDLE BRANCH BLOCK [120+ ms QRS DURATION, UPRIGHT V1, 40+ ms S IN I/aVL/V4/V5/V6] ST ELEVATION,BORDERLINE Compared to ECG 06/12/2022 10:56:44 Right-axis deviation now present ST (T wave) deviation now present Myocardial infarct finding now present Left posterior fascicular block no longer present Electronically Signed On 06-12-2022 12:18:02 SALES ENABLEMENT MANAGER by Antonio Graves M.D. [id number]
[2022-06-12 11:14] LABS: Anion Gap 15.8 (5-19); Aspartate Amino Transferase 16 U/L (0-32); Potassium 4.8 mmol/L (3.5-5.1)
[2022-06-12 11:23] LABS: Add Urine Microscopic? NO; Charge for UA Resulting for Rev
[2022-06-12 11:30] LABS: Bilirubin Urine Neg (Negative); Blood Urine Neg (Negative); Glucose Urine UA Norm (Normal); Ketones Urine Negative (Negative); Leukocyte Esterase Urine Negative (Negative); Nitrate Urine Negative (Negative); Protein Urine Neg (Negative); Urine Appearance Clear (CLEAR); Urine Color Straw (Yellow); Urobilinogen Urine Norm (Negative); pH Urine 5 (5-7)
[2022-06-12 14:36] LABS: Troponin 5 2HR Delta -2.4 ABS# (0-10)
== END 2022-06-12 14:05 | disposition home or self-care (01) ==
PROVIDERS: Emergency Provider Emergency Medicine; PCP Registered Nurse
DX: R42 Dizziness and giddiness (principal); E86.0 Dehydration; R94.31 Abnormal electrocardiogram [ECG] [EKG]; F17.210 Nicotine dependence, cigarettes, uncomplicated; J44.9 Chronic obstructive pulmonary disease, unspecified; I10 Essential (primary) hypertension; E78.2 Mixed hyperlipidemia
CPT/HCPCS: 71045; 80053; 81003; 83735; 84484; 85025; 93005; 99285; J7040; J8597

== ENCOUNTER 2022-06-24 08:57 | Outpatient (CLI) | payer MEDICARE, SELFPAY ==
--- NOTE | 2022-06-24 09:20 | MM_ITS ---
WS: [id number] Bilateral screening 3D tomosynthesis digital mammogram, 06/24/2022 Clinical Data: SCREENING Comparison: 05/28/2021, 01/29/2020, 11/17/2018, 08/01/2017, 07/27/2016, 07/21/2015, 10/31/2013, 07/15/2011, , 07/18/2009, 07/11/2008, 07/10/2007, 06/20/2006. Findings: The breast parenchymal pattern shows fibroglandular tissue. No spiculated masses or clustered calcifi cations are seen. There are no secondary signs of carcinoma. MM/[place] [id number] Impression: 1. Negative bilateral mammogram unchanged. 2. Recommend annual screening mammograms. BIRADS: 1-Negative FOLLOW UP: 1 Year Follow-up The CAD odd piece checker was used.
== END 2022-06-24 08:58 | disposition home or self-care (01) ==
LOC: RAD 09:02
PROVIDERS: PCP Registered Nurse; Visit Provider Registered Nurse
DX: Z12.31 Encounter for screening mammogram for malignant neoplasm of breast (principal)
CPT/HCPCS: 77063; 77067

== ENCOUNTER → 2022-07-06 10:21 | Outpatient (BNVA) | payer MEDICARE, SELFPAY | PROVIDERS: PCP Registered Nurse; Visit Provider Specialist | DX: G40.219 Localization-related (focal) (partial) symptomatic epilepsy and epileptic syndromes with complex partial seizures, intractable, without status epilepticus (principal); I49.9 Cardiac arrhythmia, unspecified | CPT/HCPCS: 99214 ==

== ENCOUNTER 2022-07-30 10:00 | Outpatient (CLI) | payer MEDICARE, SELFPAY ==
--- NOTE | 2022-07-30 10:15 | XR_ITS ---
WS: [id number] EXAMINATION: XR shoulder LT min 2V* [id number] REASON FOR EXAM: M25.512 - Pain in left shoulder COMPARISON: 2016. ORDER DATE: 07/30/2022 10:17 AM TECHNIQUE: 3 views of the left shoulder were obtained. X-RAY FINDINGS: No fractures or dislocations. Downsloping acromion on process Normal motion of the shoulder with internal/external rotation. Moderate glenohumeral degenerative changes. Acromioclavicular joint narrowing is demonstrated. Limited visualization of the adjacent hemithorax is unremarkable. XR/XR shoulder LT min 2V* [id number] IMPRESSION: No fractures or dislocations. Minor osteoarthritic changes
== END 2022-07-30 10:01 | disposition home or self-care (01) ==
PROVIDERS: PCP Registered Nurse; Visit Provider Registered Nurse
DX: M19.012 Primary osteoarthritis, left shoulder (principal)
CPT/HCPCS: 73030

== ENCOUNTER → 2022-11-09 12:42 | Outpatient (BNVA) | payer MEDICARE, SELFPAY | PROVIDERS: PCP Registered Nurse; Visit Provider Internal Medicine Cardiovascular Disease | DX: R06.02 Shortness of breath (principal); I10 Essential (primary) hypertension | CPT/HCPCS: 80048; 83880; 99214 ==

== ENCOUNTER → 2022-11-10 09:37 | Outpatient (BNVA) | payer MEDICARE, SELFPAY | PROVIDERS: PCP Registered Nurse; Visit Provider Nurse Practitioner Family | DX: L57.0 Actinic keratosis (principal); L40.4 Guttate psoriasis; B35.1 Tinea unguium; L72.0 Epidermal cyst; Z85.828 Personal history of other malignant neoplasm of skin; Z72.0 Tobacco use | CPT/HCPCS: 17000; 99214 ==

== ENCOUNTER 2022-12-09 09:04 | Outpatient (CLI) | payer MEDICARE, SELFPAY ==
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
== END 2022-12-09 09:05 | disposition home or self-care (01) ==
PROVIDERS: PCP Registered Nurse; Visit Provider Registered Nurse
DX: S49.92XA Unspecified injury of left shoulder and upper arm, initial encounter (principal); V89.2XXA Person injured in unspecified motor-vehicle accident, traffic, initial encounter; M19.012 Primary osteoarthritis, left shoulder; M25.812 Other specified joint disorders, left shoulder; M62.512 Muscle wasting and atrophy, not elsewhere classified, left shoulder
CPT/HCPCS: 73221

== ENCOUNTER 2022-12-23 14:12 | Outpatient (RCR) | payer MEDICARE, SELFPAY | END 2023-01-15 23:59 | disposition home or self-care (01) | LOC: SPT 14:12 | PROVIDERS: PCP Nurse Practitioner Family; Visit Provider Nurse Practitioner Family | DX: M75.102 Unspecified rotator cuff tear or rupture of left shoulder, not specified as traumatic (principal) | CPT/HCPCS: 97161 ==

== ENCOUNTER → 2022-12-24 09:23 | Outpatient (BNVA) | payer MEDICARE, SELFPAY | PROVIDERS: PCP Nurse Practitioner Family; Referring Provider Nurse Practitioner Family; Visit Provider Student in an Organized Health Care Education/Training Program | DX: M75.102 Unspecified rotator cuff tear or rupture of left shoulder, not specified as traumatic (principal); M75.42 Impingement syndrome of left shoulder; M19.012 Primary osteoarthritis, left shoulder | CPT/HCPCS: 99204 ==

== ENCOUNTER 2023-01-19 09:31 | Day surgery (SDC) | payer MEDICARE, SELFPAY ==
[2023-01-18 11:37] VITALS: BMI 27.3
[2023-01-19] VITALS (53 sets, daily range): BP systolic 88–174; BP diastolic 49–88; PULSE 54–71; RESP 9–25; TEMP 35.8–36.1; O2SAT 85–100
[2023-01-19] MEDS: sodium chloride 0.9% 1,000 ML 30 ML IV (10:55)
[2023-01-19] MEDS: ketorolac 30 mg/mL INJ IVP (11:00)
[2023-01-19] MEDS: acetaminophen 1,000 MG/100 ML PIGGYBACK 400 MG IV (11:15)
[2023-01-19] MEDS: scopolamine 1.5 Patch 1 PATCH TRANSDERMA (11:20)
[2023-01-19 11:32] LABS: Blood Urea Nitrogen 15 mg/dL (8-23); Calcium 9.2 mg/dL (8.5-10.5); Carbon Dioxide 25 mmol/L (22-29); Chloride 99 mmol/L (98-107); Glomerular Filtration Rate 125.4 mL/min (90-130); Glucose 79 mg/dL (65-115); Osmolality Calculated 280 mOsm/kg (285-295); Sodium 135 mmol/L (136-145)
--- NOTE | 2023-01-19 11:38 | P.ANESASSM_ITS ---
Pre-Anesthetic Assessment Height/Weight: Height 1.52 m Weight 63.503 kg Temp Pulse Resp BP Pulse Ox O2 Del Method 96.5 F L 62 18 168/85 96 Room Air 01/19/23 10:30 01/19/23 10:30 01/19/23 10:30 01/19/23 11:25 01/19/23 10:30 01/19/23 10:30 Operation Date: 01/19/23 11:20 Proposed Procedures p Shoulder Arthroscopy with rotator cuff repair(Left) - Justin Edgefield, DO s Subacromial Decompression(Left) - Justin Edgefield, DO s AC Separation Repair (Shoulder)(Left) - Justin Edgefield, DO Familial anesthetic complications: None Was Beta Jazmine taken within 24 hours: N/A Was Clonidine taken within 24 hours: N/A Last intake: Intake Last Liquid Date 01/18/23 Last Liquid Time 23:00 Last Solid Date 01/18/23 Last Solid Time 22:00 Social Tobacco and No alcohol Exam alert, oriented x 3, clear to auscultation bilaterally and regular rate & rhythm Airway Mallampati: Class II Dentition: full Pulmonary Chronic Obstructive Pulmonary Disease (chronic bronchitis) and Sleep Apnea CV/HEM Arrythmia (SVT s/p ablation several years ago, no further issues) Metabolic Hyperlipidemia Anesthetic Plan ASA status: 3 Anesthesia: General Risk of > 500 ml blood loss (7ml/kg in children): No Other Pertinent Information patient declines block d/t concern for dyspnea post block Medications/Allergies Home Medications Medication Instructions Recorded Confirmed Last Taken Type mupirocin 2 % topical ointment 1 applic topical BID #22 grams 12/29/21 01/19/23 01/17/23 Rx furosemide 20 mg tablet 20 mg PO DAILY PRN edema #100 tabs 03/04/22 01/19/23 01/18/23 08:00 Rx potassium chloride 8 mEq 8 meq PO DAILY #100 caps 03/04/22 01/19/23 01/18/23 Rx capsule,extended release gabapentin 300 mg capsule 300 mg PO TID #270 caps 03/09/22 01/19/23 01/18/23 Rx tramadol 50 mg tablet 50 mg PO TID PRN Pain, Moderate 04/27/22 01/19/23 01/18/23 History lamotrigine 150 mg tablet 150 mg PO BID #180 tabs 07/06/22 01/19/23 01/19/23 05:30 Rx (Lamictal) meloxicam 7.5 mg tablet 7.5 mg PO DAILY 90 days #90 tabs 08/10/22 01/19/23 01/18/23 07:00 Rx atorvastatin 40 mg tablet See Rx Instructions .Route 09/10/22 01/19/23 01/18/23 Rx .COMPLEX #90 tabs albuterol sulfate 90 mcg/actuation 2 puff inhalation Q6H PRN 01/19/23 01/19/23 01/19/23 06:00 History aerosol inhaler Shortness Of Breath baclofen 10 mg tablet 10 mg PO DAILY PRN Muscle Spasm 01/19/23 01/19/23 01/18/23 History clobetasol 0.05 % topical ointment 1 applic topical BID PRN Itching 01/19/23 01/19/23 01/18/23 History diltiazem HCl 240 mg 240 mg PO DAILY 01/19/23 01/19/23 01/19/23 05:30 History capsule,extended release 24 hr estradiol 1 mg tablet 1.5 mg PO DAILY 01/19/23 01/19/23 01/19/23 History lisinopril 10 mg tablet 10 mg PO DAILY 01/19/23 01/19/23 01/18/23 History pantoprazole 40 mg tablet,delayed 10 mg PO DAILY 01/19/23 01/19/23 01/18/23 08:00 History release Allergies Allergy/AdvReac Type Severity Reaction Status Date / Time codeine Allergy Severe seizures Verified 01/19/23 11:06 aspirin AdvReac ADR-Vomitin Verified 01/19/23 11:13 g guaifenesin [From Mucinex] AdvReac ADR-Vomitin Verified 01/19/23 11:13 g prednisolone AdvReac ADR-Vomitin Verified 01/19/23 11:13 g propranolol AdvReac sleepiness Verified 01/19/23 11:06 Sulfa (Sulfonamide AdvReac ADR-Vomitin Verified 01/19/23 11:13 Antibiotics) g MSG AdvReac ADR-Headach Uncoded 01/19/23 11:06 e Current Medications Generic Name Dose Route Start Last Admin Trade Name Freq PRN Reason Stop Dose Admin Sodium Chloride 1,000 mls @ 30 mls/hr 01/19/23 10:00 01/19/23 10:55 Sodium Chloride 0.9% IV 01/20/23 09:59 30 mls/hr .Q24H DAVI Administration PFSH Anesthesia Medical History Abuse of smoked substance Arrhythmia, atrial Chronic back pain Chronic migraine without aura, intractable, with status migrainosus Complex partial epilepsy COPD, mild Enrolled in chronic care management Essential hypertension History of nonmelanoma skin cancer Mixed hyperlipidemia No pertinent past medical history neghx:dm,thyroid PCP: Sumanth Pettit Obstructive sleep apnea RLS (restless legs syndrome) SVT (supraventricular tachycardia) Surgical History History of radiofrequency ablation procedure for cardiac arrhythmia (~2017) History of tonsillectomy and adenoidectomy Hx of hysterectomy (~1998) POLLY---one ovary spared; performed by Sanna Hx of knee surgery (~02/2016) right knee Family History Mother Breast cancer dx--45 Stroke Hypertension Thyroid disease Family/Other Breast cancer Breast cancer---- Maternal aunt x 5 Father Hypertension Denies family history of Colon cancer Ovarian cancer Diabetes Uterine cancer Social History Smoking and tobacco status: current every day smoker Substance/Drug Use: never Data Anesthesia 01/19/23 11:00 BMP 01/19/23 11:00 Chloride 99 Carbon Dioxide 25 BUN 15 Creatinine 0.5 Glucose 79 Calcium 9.2 Cardiac Studies: No Data to Display
[2023-01-19 11:41] LABS: Anion Gap 15.7 (5-19); Potassium 4.7 mmol/L (3.5-5.1)
--- NOTE | 2023-01-19 11:48 | W.PM.OPSUD ---
Surgery/Procedure H&P Update DATE OF PROCEDURE: January 19, 2023 DATE H&P PERFORMED: 12/24/22 H&P UPDATE INFORMATION: I have reviewed H&P completed within last 30 days, I have examined patient prior to procedure and No changes to prior documentation PREOP DIAGNOSIS: Left shoulder rotator cuff tear, AC joint arthritis, subacromial impingemen PRIMARY INDICATION FOR PROCEDURE: Left shoulder rotator cuff tear, AC joint arthritis, subacromial impingement, biceps tendinitis PLANNED PROCEDURE: Operation Date: 01/19/23 11:20 Proposed Procedures p Shoulder Arthroscopy with rotator cuff repair(Left) - DO jayna Rivera Subacromial Decompression(Left) - DO jayna Rivera AC Separation Repair (Shoulder)(Left) - Justin Colindres DO
[2023-01-19] MEDS: ceFAZolin 2,000 MG in sodium chloride 0.9% (plus) 50 ML 100 MG IV ×2 (12:33→21:19)
[2023-01-19] MEDS: EPINEPHrine 1 mg/mL INJ 2 MG XX (14:04)
--- NOTE | 2023-01-19 15:05 | P.OP_ITS ---
Operative Report Date of procedure: January 19, 2023 Implants: Arthrex speed bridge kit 2x 5.5mm swivellocks 2x 4.75mm swivellocks Surgeon: Justin Colindres DO Procedure: Preoperative diagnosis: Full-thickness left shoulder rotator cuff tear, subacromial impingement, AC joint arthritis, bicep tendon tear Post-op diagnosis:? Left?shoulder?labral tear Left?shoulder?biceps tendon tear Left?shoulder?rotator cuff tear Left?shoulder?AC joint arthritis Left?shoulder?subacromial bursitis/impingement Procedure done: Left?shoulder?diagnostic and surgical arthroscopy with arthroscopic rotator cuff repair(large) Left?shoulder?diagnostic and surgical arthroscopy biceps tenotomy Left?shoulder?diagnostic and surgical arthroscopy labral debridement Left?shoulder?diagnostic and surgical arthroscopy acromioclavicular joint resection Left?shoulder?diagnostic and surgical arthroscopy subacromial decompression (acromioplasty and bursectomy) Surgeon: Justin Colindres DO Estimated blood loss: [10 ]mL IV fluids: See anesthesia record Complications: None Condition: stable Disposition: same day Brief History: Patient been seen and worked up in the outpatient setting for Left?shoulder?pa in.? Pt had an MRI which showed findings below.? Patient's failed conservative treatment and has weakness.? We talked about treatment options far as nonoperative and operative intervention..? We talked about risk benefits complication alternatives surgical nonsurgical treatment options.? Understanding risk of surgery pt agrees to proceed with surgical intervention.? All questions have been answered at this time.? Patient elects proceed with surgery and consent obtained in office. IMPRESSION: 1. Full-thickness distal supraspinatus tendon tear with retraction to the superior humeral head. 2. Mild AC joint arthritis. 3. Mild subacromial impingement. 4. Mild supraspinatus muscle atrophy. Procedure: Patient seen evaluated in the preoperative holding area.? Consent reviewed and signed with patient.? Once again reviewed patient's MRI results as well as? planned surgical intervention.? Correct extremity marked.? Patient seen evaluated by anesthesia department.? Once ready for surgery was taken back to the operative suite.? Patient then subsequently underwent anesthesia per the anesthesia department was transported onto the OR table.? Patient was then placed into a lateral decubitus position with a beanbag and was appropriately secured to the bed.? All bony prominences well-padded.? Patient then had the Left upper extremity was then prepped and draped in standard orthopedic fashion.? Patient received appropriate preoperative antibiotics.? Final timeout performed. The Left upper extremity was then held in hanging from traction utilizing sterile technique.? Next started with standard diagnostic and surgical arthroscopy with posterior portal position introduced arthroscope into the glenohumeral joint.? Visualized the glenohumeral joint I then introduced a spinal needle within the rotator cuff interval to confirm appropriate anterior portal placement.? Once this was confirmed I then made my small incision and then introduced my arthroscopic shaver into the glenohumeral joint.? After thorough debridement was clearly evident patient had a significant erythema as well as positive liftoff sign of the biceps anchor and biceps tendon tear as it was pulled within the joint.? Decision at this time was made to perform a biceps tenotomy.? Introduced a thermal wand and a biceps tenotomy was performed to completion With appropriate release.? Next I evaluated the subscapularis tendon which was intact and no evidence of tear. ?Next there was significant labral tearing at biceps anchor and circumferential.? ? I then subsequently utilized a a arthroscopic shaver and thermal wand to perform a labral debridement.? This point time I then visualized the glenohumeral joint.? The glenohumeral joint was found to have grade 1-2? chondromalacia throughout.? Infrapatellar pouch was free of loose bodies from viewing the posterior portal.? Next a visualized the rotator cuff superiorly and there was found to be a large full-thickness rotator cuff tear of the supraspinatus tendon.? I utilized a spinal needle to morgan this location.? ?This completed my work within the glenohumeral joint all fluid was suctioned free of the joint.? ?Next I reintroduced the arthroscope posteriorly.? And went to the subacromial space.? I established my lateral working portal at the site of which my spinal needle was marking of the rotator cuff tear.? Thermal wand was then introduced laterally and then I subsequently performed extensive bursectomy of the subacromial space.? Patient had a large anterior bone spur.? At this point time I proceeded with my AC joint resection thermal wand was used and track to the anterior edge of the acromion and then tracked all the way to the AC joint.? Once identified the AC joint this was very arthritic in nature.? Thermal wand was placed anteriorly to establish appropriate plane for AC joint resection.? Once appropriate margins and anterior inferior and anterior capsule was released I then introduced arthroscopic shaver and a bur and performed AC joint resection of both the acromion to cope plane at the AC joint and a distal clavicle resection was then performed totaling 1 cm in size and was confirmed.? This completed my AC joint resection and I then introduced the arthroscopic shaver laterally while continuing to view posteriorly.? I then performed an acromioplasty to complete my subacromial decompression prior to fixing the rotator cuff tear.? Next the arthroscopic shaver was then used previous spinal needle spot that is marked the rotator cuff this was consistent with a large full-thickness tear.? Given its size I elected to proceed with an Arthrex speed bridge kit with a double row repair. I utilized a spinal needle to create an accessory portal for my medial row anchor placement. At this point in time I utilized the bur to decorticate the rotator cuff footprint in preparation for repair. Next I made an extra incision with whereby spinal needle was at this was inappropriate and bands ankle to establish my medial row anchors. I subsequently utilized a punch and placed 2x 5.5mm for my medial row anchors. I then utilizing the Arthrex scorpion passed in total 6 stitches the rotator cuff tendon 4 fiber tapes and 2 FiberWire. Once these were then passed I checked the purchase and appropriate excursion of the rotator cuff repair. Next I loaded sutures 1 3 and 5 and loaded them into a 4.75 mm swivel lock anchor I utilized a punch and while my bricklayer's assistant held the rotation of the arm I subsequently punched and placed a swivel lock for my anterior row anchor maintaining my appropriate tension for excellent rotator cuff repair. Next diagram sutures 2 4 and 6 and loaded them on a 4.5 mm swivel lock anchor I subsequently utilized a punch and placed my posterior lateral portal impacted this into place maintaining appropriate tension and advanced this and had excellent fixation. Shahab sutures was then cut there was no dogear needed to repair with any of my eyelet sutures as result all excess sutures were cut and the rotator cuff repair was evaluated. As result I loaded and Arthrex scorpion with fiber tape and subsequently.? Repair was found to be satisfactory?shoulder?was taken through range of motion and the repair moved as a unit with no evidence of loss of fixation. ?I then switched the arthroscope to the lateral portal to confirm this tension- free repair.? I took the?shoulder?through range of motion and the rotator cuff repair was stable and moved as a unit. ?Next I then introduced the arthroscopic shaver posteriorly to complete my subacromial decompression appropriate complaining all the way up to the lateral edge of the acromion.? This completed the surgery.? All fluid was suctioned from the?shoulder.? All instruments were removed.? The lateral incision was then closed with nylon stitches.? As well as the portal sites closed with portal nylon stitches.? Xeroform 4 x 4's ABD and tape was then applied to the Left?shoulder?and was placed into a?shoulder?abduction pillow sling for rotator cuff repair.? Patient was then awakened from anesthesia and then taken back to PACU in stable condition.? Patient tolerated procedure without any issues. Disposition: Patient taken back in stable condition. While in recovery patient had poor oxygenation once she was extubated and as result after discussion with anesthesia they recommended patient be admitted to the ICU for overnight monitoring with BiPAP. Internal medicine was consulted and will assist in medical management. Orthopedics will continue to follow. Dressings on in place clean dry and intact.? Will be nonweightbearing to the Left upper extremity.? Follow rotator cuff repair protocol.? Patient to follow-up with me in the office in 2 weeks.? Patient will receive appropriate discharge instruction as well as pain medication postoperatively.? All questions answered.? We will contact the office for any questions or concerns.
--- NOTE | 2023-01-19 15:09 | W.PM.BPON ---
Date of procedure: [January 19, 2023] Surgeon name: Dr. Jens BASHIR Supervisor Insulation(s) name(s): Isaac Colindres physician news production assistant Procedure(s) performed: [Left shoulder arthroscopy, large rotator cuff repair, subacromial decompression, AC separation repair, labral debridement, biceps tenotomy.] Description of findings: [Left shoulder rotator cuff tear, AC joint arthritis, subacromial impingement, biceps tendinitis] Estimated blood loss: [20ml] Specimen(s) removed: [n/a] Post-operative diagnosis: [Left shoulder rotator cuff tear, AC joint arthritis, subacromial impingement, biceps tendinitis]
--- NOTE | 2023-01-19 15:13 | P.PCN_ITS ---
Orthopedic note update: Patient had issues postoperatively with respiratory. This was staffed with me by anesthesia and they recommend hospitalization for observation and internal medicine on board. Internal medicine has been consulted per the anesthesia team. Patient admitted to ICU for Respiratory distress/hypercapnia postextubation. Appreciate internal medicine's medical management. Orthopedics will continue to follow along and treat pain postoperatively. Justin Colindres, DO PACU note Narrative: Patient is a 62-year-old female just underwent a left shoulder arthroscopy. Patient transferred to PACU in stable condition. Pain is well controlled. shoulder Dressing on , dry and in place. Patient's operative arm is in a shoulder ultra sling. Patient is still somnolescent from anesthesia and I am unable to perform any further assessment of motor and sensation on patient's operative arm. Patient's fingers are warm with good perfusion. Normal cap refill under 2 seconds. Unable to assess further range of motion in arm due to sling. Exam: unarousable Disposition: discharged
--- NOTE | 2023-01-19 15:44 | PC.NURSE ---
1527 - oral airway removed - pt transitioned to n/c sats remain in 90's - 1530-HUMA Mar called to bedside due to 02 sats continued to drop - simple mask replaced per HUMA Mar - further orders rec'd for stat ABG as well as bipap -153 Heidy, RT at side with bipap in place - pt sats at 99% - resting easy - PATIENT SAFETY TECH and staff remain at pts side 1546 - ABG drawn per RT
[2023-01-19 15:55] LABS: Alveolar-Arterial Oxygen Gradi 7.8 mmHg (5-10); Arterial Blood Gas Hematocrit 35.5 % (37-47); Base Excess ABG -5.4 mmol/L (-2.0-2.0); Blood Gas Allen Test Pos; Blood Gas Operator Identificat CAK; Blood Gas Sample Site Brachial, right; Blood Gas Sample Type Arterial; Carboxyhemoglobin 4.4 %THgb (0.4-20.1); HCO3 ABG 24.6 mmol/L (22-26); HGB O2 Sat 92.4 % (95-100); Ionized Calcium Level - ABG 1.2 mmol/L (1.1-1.4); Methemoglobin 0.4 % (0.4-1.5); Oxygen Device BIPAP; Total Hemoglobin 11.6 g/dL (12-16)
[2023-01-19 15:56] LABS: ABG PCO2 71.9 mmHg (35-45); ABG PH Result 7.14 (7.35-7.45)
--- NOTE | 2023-01-19 16:00 | PC.NURSE ---
1558 - RT in unit with ABG results - taken per this nurse to Dr Dean - orders to continue bipap - RT at side to monitor BP and administer albuterol neb
[2023-01-19] MEDS: albuterol 2.5 mg/3 mL Neb INHALATION (16:13)
--- NOTE | 2023-01-19 16:18 | PC.NURSE ---
1615 - pt remains on bipap tolerating well - Dr Dean aware
--- NOTE | 2023-01-19 16:43 | XR_ITS ---
WS: [id number] EXAMINATION: XR chest 1V portable [id number] REASON FOR EXAM: post op decrease of consciouisness COMPARISON: 06/12/2022 ORDER DATE: 01/19/2023 4:45 PM TECHNIQUE: A single, portable frontal chest x-ray was obtained. X-RAY FINDINGS: There are no definitive infiltrates however there is some discoid atelectasis near the minor fissure and in each lung base. Pleural spaces are clear. No pleural effusions or pneumothorax. Cardiomediastinal silhouette is normal. No evidence for pulmonary edema. Soft tissue and osseous structures are unremarkable. No tubes or lines are present. IMPRESSION: Scattered atelectasis.
[2023-01-19] MEDS: naloxone 0.4 mg/ml SDV (16:44)
--- NOTE | 2023-01-19 16:53 | PC.NURSE ---
1643 - Dr. Benito at [facility] - new orders rec'd for Narcan 0.2 IVP , stat ABG and chest x ray -
[2023-01-19 16:55] LABS: ABG PH Result 7.23 (7.35-7.45); Alveolar-Arterial Oxygen Gradi 6.4 mmHg (5-10); Arterial Blood Gas Hematocrit 34.1 % (37-47); Base Excess ABG -4.3 mmol/L (-2.0-2.0); Blood Gas Allen Test Pos; Blood Gas Operator Identificat WALCI; Blood Gas Sample Site Radial, right; Blood Gas Sample Type Arterial; Carboxyhemoglobin 4.2 %THgb (0.4-20.1); HCO3 ABG 23.6 mmol/L (22-26); HGB O2 Sat 92.8 % (95-100); Ionized Calcium Level - ABG 1.2 mmol/L (1.1-1.4); Methemoglobin 0.8 % (0.4-1.5); Oxygen Device BIPAP; Oxygen Saturation ABG 97.7; PO2 ABG 95.7 mmHg (80.0-100.0); Potassium Level - ABG 3.9 mmol/L (3.5-5.0); Total Hemoglobin 11.1 g/dL (12-16)
[2023-01-19] MEDS: morphine 4 mg/mL SDV 1 mL 2 MG IVP (16:58)
--- NOTE | 2023-01-19 17:07 | PC.NURSE ---
5341 - Dr Crowder at bedside per consult for Dr Colindres - orders rec'd for ICU transfer as well as 1mg Morphine given IVP for pain - Dr Benito
--- NOTE | 2023-01-19 17:10 | PM.CONSULT ---
Providers/Reason For Consult Consulting Physician/Specialty*: Dr. Amanda MD/internal medicine Reason for Consult*: Respiratory distress/hypercapnia postextubation Requesting Physician: Dr. Dean Attending Physician: Justin Colindres DO Primary Care Provider: Juan Antonio Garcia History of Present Illness History of Present Illness Perla Miller is a 62 year old female with past medical history of complex partial seizure, COPD, sleep apnea not on oxygen or CPAP, hypertension, atrial arrhythmia, supraventricular tachycardia who was brought to the OR today under orthopedics for left shoulder arthroscopy and rotator cuff repair. Postextubation after the procedure patient was hard to arouse and ABG was done which showed respiratory acidosis with hypercapnia for which she was placed on BiPAP. As patient's mentation did not improve in an hour hospitalist service was consulted for further evaluation and management. Patient was also given 1 dose of Narcan. Procedure was unremarkable. Repeat ABG was requested which shows slight improvement in pH from 7.1-7.23 and CO2 improving from 70-50. When seen in PACU patient was waking up, drowsy but waking up to verbal stimulus and able to have complete conversation and participate in the interview. Patient is currently on BiPAP 18/6 saturating well on the same setting, heart rate of high 50s with blood pressure of 114 over 60 mmHg. Complaining of pain in her shoulder. Patient otherwise denies any nausea, vomiting, headache, dizziness, subjective fever recently, dysuria, diarrhea, cough. She denies of having any discomfort from her past surgeries. Has not had a seizure in a long time. Has been compliant with her medications. Review of Systems General: Reports: 10 or more systems reviewed and unremarkable except in HPI and below Const: Denies: fever(s), chills, body aches, change in appetite, change in weight, malaise, night sweats, diaphoresis, change in sleep pattern, daytime sleepiness or snoring Eyes: Denies: change in vision, blurry vision, photophobia, eye discomfort or eye discharge ENMT: Denies: throat pain, enlarged tonsils, hoarseness, mouth pain, oral sores, dry mouth, tinnitus, nasal congestion or post nasal drip Card: Denies: chest pain, palpitations, irregular heart rhythm, edema, swelling of feet/ankles, lightheadedness, syncope, pre-syncope, dyspnea on exertion, orthopnea, leg pain with exertion or acrocyanosis Resp: Denies: dyspnea, productive cough, non-productive cough, wheezing, stridor, pain on inspiration, change in phlegm color, hemoptysis or chest congestion GI: Denies: abdominal pain, nausea, vomiting, hematemesis, coffee ground emesis, dysphagia, heartburn, diarrhea, constipation, bloating, GI cramping, change in bowel habits, pain on defecation, hematochezia or melena : Denies: flank pain, dysuria, urinary frequency, urinary urgency, urinary hesitancy, nocturia or hematuria Musc: Denies: neck pain, back pain, extremity pain, joint pain, joint swelling, joint redness, joint stiffness or limited range of motion Neuro: Denies: headache(s), numbness in extremities, weakness in extremities, sensory changes, lack of coordination, difficulty walking, frequent falls, dizziness, vertigo, confusion, Slurred speech present, difficulty communicating thoughts or seizure-like activity Psych: Denies: anxiety, depression, mood swings, panic attacks, hopelessness or irritability Endo: Denies: polyuria, polydipsia, tired all the time, cold intolerance, excessive sweating, flushing or heat intolerance Elliot/Lymph: Denies: easy bruising or easy bleeding All/Imm: Denies: tongue swelling, facial swelling or acute wheezing Medications/Allergies Home Medications Medication Instructions Recorded Confirmed Last Taken Type mupirocin 2 % topical ointment 1 applic topical BID #22 grams 12/29/21 01/19/23 01/17/23 Rx furosemide 20 mg tablet 20 mg PO DAILY PRN edema #100 tabs 03/04/22 01/19/23 01/18/23 08:00 Rx potassium chloride 8 mEq 8 meq PO DAILY #100 caps 03/04/22 01/19/23 01/18/23 Rx capsule,extended release gabapentin 300 mg capsule 300 mg PO TID #270 caps 03/09/22 01/19/23 01/18/23 Rx tramadol 50 mg tablet 50 mg PO TID PRN Pain, Moderate 04/27/22 01/19/23 01/18/23 History lamotrigine 150 mg tablet 150 mg PO BID #180 tabs 07/06/22 01/19/23 01/19/23 05:30 Rx (Lamictal) meloxicam 7.5 mg tablet 7.5 mg PO DAILY 90 days #90 tabs 08/10/22 01/19/23 01/18/23 07:00 Rx atorvastatin 40 mg tablet See Rx Instructions .Route 09/10/22 01/19/23 01/18/23 Rx .COMPLEX #90 tabs albuterol sulfate 90 mcg/actuation 2 puff inhalation Q6H PRN 01/19/23 01/19/23 01/19/23 06:00 History aerosol inhaler Shortness Of Breath baclofen 10 mg tablet 10 mg PO DAILY PRN Muscle Spasm 01/19/23 01/19/23 01/18/23 History clobetasol 0.05 % topical ointment 1 applic topical BID PRN Itching 01/19/23 01/19/23 01/18/23 History diltiazem HCl 240 mg 240 mg PO DAILY 01/19/23 01/19/23 01/19/23 05:30 History capsule,extended release 24 hr estradiol 1 mg tablet 1.5 mg PO DAILY 01/19/23 01/19/23 01/19/23 History lisinopril 10 mg tablet 10 mg PO DAILY 01/19/23 01/19/23 01/18/23 History pantoprazole 40 mg tablet,delayed 10 mg PO DAILY 01/19/23 01/19/23 01/18/23 08:00 History release Allergies Allergy/AdvReac Type Severity Reaction Status Date / Time codeine Allergy Severe seizures Verified 01/19/23 11:06 aspirin AdvReac ADR-Vomitin Verified 01/19/23 11:13 g guaifenesin [From Mucinex] AdvReac ADR-Vomitin Verified 01/19/23 11:13 g prednisolone AdvReac ADR-Vomitin Verified 01/19/23 11:13 g propranolol AdvReac sleepiness Verified 01/19/23 11:06 Sulfa (Sulfonamide AdvReac ADR-Vomitin Verified 01/19/23 11:13 Antibiotics) g MSG AdvReac ADR-Headach Uncoded 01/19/23 11:06 e Current Medications Generic Name Dose Route Start Last Admin Trade Name Freq PRN Reason Stop Dose Admin Sodium Chloride 1,000 mls @ 30 mls/hr 01/19/23 10:00 01/19/23 10:55 Sodium Chloride 0.9% IV 01/20/23 09:59 30 mls/hr .Q24H DAVI Administration PFSH Acute PFSH: Medical History Abuse of smoked substance Arrhythmia, atrial Chronic back pain Chronic migraine without aura, intractable, with status migrainosus Complex partial epilepsy COPD, mild Enrolled in chronic care management Essential hypertension History of nonmelanoma skin cancer Mixed hyperlipidemia No pertinent past medical history neghx:dm,thyroid PCP: Sumanth Pettit Obstructive sleep apnea RLS (restless legs syndrome) SVT (supraventricular tachycardia) Surgical History History of radiofrequency ablation procedure for cardiac arrhythmia (~2017) History of tonsillectomy and adenoidectomy Hx of hysterectomy (~1998) POLLY---one ovary spared; performed by Sanna Hx of knee surgery (~02/2016) right knee Family History Mother Breast cancer dx--45 Stroke Hypertension Thyroid disease Family/Other Breast cancer Breast cancer---- Maternal aunt x 5 Father Hypertension Denies family history of Colon cancer Ovarian cancer Diabetes Uterine cancer Social History Smoking and tobacco status: current every day smoker Substance/Drug Use: never Vitals/I&O/Wt Last Vital Signs Temp 97.0 F L 01/19/23 14:55 Pulse 55 L 01/19/23 17:05 Resp 15 01/19/23 17:05 BP 114/61 01/19/23 17:05 Pulse Ox 97 01/19/23 17:05 O2 Del Method BiPAP 01/19/23 17:05 O2 Flow Rate 6 01/19/23 15:35 FiO2 30 01/19/23 16:14 01/19/23 01/19/23 01/19/23 06:59 14:59 22:59 Intake Total 150 / 150 50 / 200 Output Total Balance 140 / 140 50 / 190 Weight last 48 hrs Weight 63.503 kg Physical Exam Narrative: General: No acute distress, drowsy, waking up on verbal stimulus, on waking up AO x3, on BiPAP HEENT: PERRLA, pupils bilaterally equal and reactive Chest: Bilateral bronchial breath sounds all over lung alvarado with diffuse rhonchi, good equal air entry all over lung [place] CVS: S1-S2 regular, no murmurs, bradycardia, no gallops, no rubs Abdomen: Soft, nontender, no organomegaly, bowel sounds present Neuro: No focal deficits, no facial deformity, Data 01/19/23 11:00 A&P Assessment and plan (1) Encounter for postoperative care: Post left shoulder arthroscopy, rotator cuff repair. We will try to reduce pain medications given respiratory distress from hypercapnia. Morphine 1 mg IV 4-hour as needed. [place] 5 mg every 6 hours as needed. (2) Hypercapnic respiratory failure: Most likely in setting of obstructive sleep apnea and COPD getting worse because of sedation for procedure and pain medication. Repeat ABG on BiPAP for 2 hours shows slight improvement but does show respiratory acidosis with hypercapnia. Repeat ABG in 2 hours. DuoNebs every 6 hour, budesonide twice daily. Solu-Medrol 125 mg 1 time. Continue BiPAP ventilation for now. Can remove for medication and diet. Speech evaluation prior to diet. Check chest x-ray, CBC, TSH. 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 Check Lamictal level. Plan Continue other chronic medications. History of hypertension History of atrial arrhythmia Protonix for PUD prophylaxis Anticoagulation as per primary team. Restart diet as per speech evaluation at dinnertime. Consult Attestations Medical Necessity Statement: Patient requires hospitalization postprocedure for hypercapnic respiratory failure leading to respiratory acidosis in setting of obstructive sleep apnea and COPD Coding Level of Care Code Critical Care >/= 30 minutes Critical care time (in minutes): 80 The high probability of a clinically significant, sudden or life threatening deterioration, as referenced in this documentation, required my full and direct attention, intervention and personal management. The critical care time shown is in addition to time spent performing any reported separately billable procedures and includes the following: [x] Data and vital sign review and interpretation [x] Patient assessment, examination and intervention [x] Medication orders and management [x] Patient/Family updates as able [x] Care Coordination and Documentation. 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
--- NOTE | 2023-01-19 17:31 | PC.NURSE ---
1726 - pt transported off unit via gurney with RT and pacu staff at side to ICU 11 - pt is responsive at time of transfer and alert and orientated - family/friend updated per EVELINE Dumont throughout PACU stay - Dr Dean, Dr Colindres, Dr Woo aware of pts condition and transfer
--- NOTE | 2023-01-19 17:34 | ANE.PACU2 ---
Inpatient post-anesthesia follow up: Airway intact: Yes Vital signs: Temperature 97.0 F Pulse Rate 54 Respiratory Rate 16 Blood Pressure 128/64 Pulse Oximetry 95 Oxygen Delivery Me thod BiPAP Oxygen Flow Rate 6 Fraction of Inspir ed Oxygen 30 Hydration adequate: Yes Nausea and vomiting: No Pain level: 6 Mental status: Baseline Additional Comments: CO2 narcosis, placed on biPAP for ph 7.14, after an hour mental status improved, but still tenuous. Narcan 0.2 mg IV given with good effect on mental status. repeat ABG a few minutes later improve but still acidotic and hypercarbic, Thus admitted overnight for observation.
[2023-01-19 18:20] LABS: Basophils # 0.1 10^3/uL (0.0-0.1); Basophils % 0.5 %; Hematocrit 35.3 % (36-47); Lymphocytes # 0.7 10^3/uL (0.8-4.8); Lymphocytes % 6.9 %; Mean Corpuscular HGB Conc 31.4 g/dL (30-55); Mean Corpuscular Hemoglobin 31.1 pg (27-33); Mean Corpuscular Volume 98.9 fl (85-98); Mean Platelet Volume 9.4 fL (7.4-10.4); Monocytes # 0.1 10^3/uL (0.2-0.9); Monocytes % 0.9 %; Neutrophils % 91.4 %; Nucleated Red Blood Cells % 0 %; Platelet Count 263 10^3/cmm (157-399); Red Blood Count 3.57 10^6/uL (3.85-5.65); White Blood Count 9.41 10^3/uL (3.29-11.43)
[2023-01-19] MEDS: lamoTRIgine 100 mg Tablet 150 MG PO (18:26)
[2023-01-19 19:01] LABS: Iron 38 ug/dL (37-145); NT Pro B Type Natriuretic Pept 219 pg/mL (0-125); Percent Saturation 7.7 % (20-50); Thyroid Stimulating Hormone 3.15 uIU/mL (0.27-4.20); Total Iron Binding Capacity 491 mcg/dl; Unsaturated Iron Binding 453 ug/dL (112-347)
[2023-01-19] MEDS: budesonide 0.5 mg/2 mL Neb INHALATION (20:12)
[2023-01-19] MEDS: ipratropium-albuterol 3 mL Neb INHALATION (20:12)
[2023-01-19 20:37] LABS: ABG PCO2 52.6 mmHg (35-45); ABG PH Result 7.27 (7.35-7.45); Alveolar-Arterial Oxygen Gradi 7.1 mmHg (5-10); Base Excess ABG -3.2 mmol/L (-2.0-2.0); Blood Gas Allen Test Pos; Blood Gas Operator Identificat JB; Blood Gas Sample Site Radial, right; Blood Gas Sample Type Arterial; Carboxyhemoglobin 3.3 %THgb (0.4-20.1); HCO3 ABG 24.1 mmol/L (22-26); Ionized Calcium Level - ABG 1.2 mmol/L (1.1-1.4); Methemoglobin 0.8 % (0.4-1.5); Oxygen Device BIPAP; PO2 ABG 94.5 mmHg (80.0-100.0); Potassium Level - ABG 4.2 mmol/L (3.5-5.0); Total Hemoglobin 11.4 g/dL (12-16)
[2023-01-19] MEDS: acetaminophen 500 mg Tablet 1000 MG PO (21:08)
[2023-01-19] MEDS: baclofen 10 mg Tablet PO (21:09)
[2023-01-19] MEDS: gabapentin 300 mg Capsule PO (21:09)
[2023-01-19] MEDS: oxyCODONE 5 mg IR Tab/Cap PO (21:10)
[2023-01-20] VITALS (36 sets, daily range): BP systolic 102–131; BP diastolic 41–74; PULSE 59–77; RESP 11–29; TEMP 36.4–37.1; O2SAT 90–100
[2023-01-20] MEDS: ipratropium-albuterol 3 mL Neb INHALATION ×3 (01:45→13:25)
[2023-01-20 02:25] LABS: Add Urine Microscopic? YES; Amorphous Sediment Urine 2+ /hpf; Bacteria Urine 1+ /hpf; Bilirubin Urine Neg (Negative); Blood Urine Neg (Negative); Glucose Urine UA Norm (Normal); Ketones Urine 1+ (Negative); Leukocyte Esterase Urine Negative (Negative); Nitrate Urine Negative (Negative); Protein Urine 1+ (Negative); Specific Gravity, Urine 1.025 (1.005-1.030); Urine Appearance Cloudy (CLEAR); Urine Color Yellow (Yellow); Urobilinogen Urine Neg (Negative); pH Urine 5 (5-7)
[2023-01-20 02:26] LABS: Add Urine Culture? No
[2023-01-20] MEDS: acetaminophen 500 mg Tablet 1000 MG PO ×2 (04:33→11:49)
[2023-01-20] MEDS: ceFAZolin 2,000 MG in sodium chloride 0.9% (plus) 50 ML 100 MG IV (04:36)
[2023-01-20 04:56] LABS: Chol HDL Ratio 3.09 mg/dL (0.0-4.40); Cholesterol 204 mg/dL (0-200); HDL Cholesterol 66 mg/dL (60-100); LDL Cholesterol Calculated 112 mg/dL (50-129); Triglycerides 129 mg/dL (0-150); VLDL Cholestrol Calculation 26 mg/dL (0-30)
[2023-01-20 05:12] LABS: Alanine Aminotransferase < 5 U/L (0-33); Albumin Level 3.5 g/dL (3.5-5.2); Alkaline Phosphatase 58 U/L (35-105); Anion Gap 18.5 (5-19); Aspartate Amino Transferase 14 U/L (0-32); Blood Urea Nitrogen 16 mg/dL (8-23); Calcium 8.3 mg/dL (8.5-10.5); Carbon Dioxide 19 mmol/L (22-29); Chloride 101 mmol/L (98-107); Folate Level 17.8 ng/mL (4.8-37.3); Globulin 2.8 g/dL (1.3-4.6); Glomerular Filtration Rate 101.6 mL/min (90-130); Glucose 116 mg/dL (65-115); Osmolality Calculated 278 mOsm/kg (285-295); Potassium 5.5 mmol/L (3.5-5.1); Sodium 133 mmol/L (136-145); Total Bilirubin 0.2 mg/dL (0.15-1.2); Total Protein 6.3 g/dL (6.6-8.7)
[2023-01-20 05:40] LABS: Estmated Average Glucose 111; Hemoglobin A1C 5.5 % (4.0-6.0)
[2023-01-20] MEDS: insulin regular-human 10 UNIT in SYRINGE 1 EACH 999 UNIT IVP (05:57)
[2023-01-20] MEDS: dextrose 50% syringe 50 mL IVP ×2 (05:57→10:14)
[2023-01-20 06:05] LABS: Glucose Point of Care 114 mg/dL (70-110)
[2023-01-20 06:53] LABS: Basophils % 0.1 %; Hematocrit 33.4 % (36-47); Lymphocytes # 0.7 10^3/uL (0.8-4.8); Lymphocytes % 9.6 %; Mean Corpuscular HGB Conc 30.8 g/dL (30-55); Mean Corpuscular Hemoglobin 31.1 pg (27-33); Mean Corpuscular Volume 100.9 fl (85-98); Mean Platelet Volume 9.3 fL (7.4-10.4); Monocytes # 0.2 10^3/uL (0.2-0.9); Neutrophils # 6.66 10^3/uL (1.8-7.7); Neutrophils % 87.9 %; Nucleated Red Blood Cells % 0 %; Platelet Count 254 10^3/cmm (157-399); Red Blood Count 3.31 10^6/uL (3.85-5.65); Red Cell Distribution Width 12.9 % (12.1-15.1); White Blood Count 7.58 10^3/uL (3.29-11.43)
[2023-01-20 06:58] LABS: Glucose Point of Care 165 mg/dL (70-110)
[2023-01-20] MEDS: budesonide 0.5 mg/2 mL Neb INHALATION (07:44)
[2023-01-20 08:02] LABS: Glucose Point of Care 116 mg/dL (70-110)
[2023-01-20] MEDS: atorvastatin 40 mg Tablet PO (08:45)
[2023-01-20] MEDS: pantoprazole DR 40 mg Tablet PO (08:45)
[2023-01-20] MEDS: lisinopril 10 mg Tablet PO (08:45)
[2023-01-20] MEDS: gabapentin 300 mg Capsule PO (08:45)
[2023-01-20] MEDS: docusate sodium 100 mg Capsule PO (08:46)
[2023-01-20] MEDS: dilTIAZem ER (24HR) 240 mg Capsule PO (08:46)
[2023-01-20] MEDS: lamoTRIgine 100 mg Tablet 150 MG PO (08:46)
[2023-01-20] MEDS: insulin regular-human 10 UNIT in SYRINGE 1 EACH IVP (10:14)
[2023-01-20 10:24] LABS: Glucose Point of Care 127 mg/dL (70-110)
--- NOTE | 2023-01-20 11:18 | PM.PN ---
Subjective Subjective: No acute events overnight. Today morning seen sitting up in chair in ICU. On 2 L of oxygen supplementation on the interview which was turned off and she kept maintaining a saturation over 95% on room air. Denies any new complaints other than requesting for a regular diet and pain in the shoulder. States does not want take oxycodone and would rather want to continue taking tramadol. Blood work appreciated for a stable CBC, CMP showing mild hypokalemia today. Vitals/I&O/Wt Last Vital Signs Temp 98.7 F 01/20/23 09:00 Pulse 73 01/20/23 10:30 Resp 19 H 01/20/23 10:30 BP 115/52 01/20/23 10:30 Pulse Ox 96 01/20/23 09:30 O2 Del Method Room Air 01/20/23 09:30 O2 Flow Rate 2 01/20/23 09:00 FiO2 30 01/20/23 01:42 01/19/23 01/20/23 01/20/23 22:59 06:59 14:59 Intake Total 1432.5 / 1582.5 290.1 / 1872.6 240.1 / 240.1 Output Total 250 / 260 250 / 250 Balance 1432.5 / 1572.5 40.1 / 1612.6 -9.9 / -9.9 Weight last 48 hrs Weight 63.503 kg Physical Exam Narrative: General: No acute distress, AOx3, pleasant HEENT: PERRLA, pupils bilaterally equal and reactive Chest: Bilateral bronchial breath sounds all over lung alvarado with diffuse rhonchi, good equal air entry all over lung alvarado CVS: S1-S2 regular, no murmurs, bradycardia, no gallops, no rubs Abdomen: Soft, nontender, no organomegaly, bowel sounds present Neuro: No focal deficits, no facial deformity, moving all limbs, power 5/5, not checked in the left arm because of postoperative status Data 01/20/23 06:35 01/20/23 03:55 A&P Assessment and plan (1) Encounter for postoperative care: Post left shoulder arthroscopy, rotator cuff repair. We will try to reduce pain medications given respiratory distress from hypercapnia. Patient requesting no narcotics. Only wants tramadol which is also on her home med list. (2) Hypercapnic respiratory failure: Resolved. Most likely in setting of obstructive sleep apnea and COPD getting worse because of sedation for procedure and pain medication. DuoNebs every 6 hour, budesonide twice daily. Appreciate normal chest x-ray and TSH. Would benefit from a sleep study as an outpatient. 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 Check Lamictal level. Plan Continue other chronic medications. History of hypertension History of atrial arrhythmia Protonix for PUD prophylaxis Anticoagulation as per primary team. Restart diet as per speech evaluation at dinnertime. Plan for the day: Patient doing well on room air. Mentation back to baseline. D50/10 units of insulin for hyperkalemia. Repeat potassium in noon. If repeat potassium levels are stable can be discharged home from medicine standpoint. Patient would need to hold off taking potassium supplement on discharge. Otherwise can continue all chronic medications as before. Should follow-up with primary care provider within next 1 week. Recommend sleep study as an outpatient for possible need of CPAP. Medical med reconciliation done. Care discussed in detail with patient, RN at bedside. All the questions were answered. Attestations Medical Necessity Statement*: As per primary team. 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
[2023-01-20 11:35] LABS: Glucose Point of Care 122 mg/dL (70-110)
[2023-01-20 12:47] LABS: Anion Gap 19.7 (5-19); Blood Urea Nitrogen 14 mg/dL (8-23); Calcium 8.5 mg/dL (8.5-10.5); Carbon Dioxide 18 mmol/L (22-29); Chloride 98 mmol/L (98-107); Glomerular Filtration Rate 101.6 mL/min (90-130); Glucose 107 mg/dL (65-115); Osmolality Calculated 275 mOsm/kg (285-295); Potassium 3.7 mmol/L (3.5-5.1); Sodium 132 mmol/L (136-145)
--- NOTE | 2023-01-20 12:55 | PM.PN ---
Subjective Subjective: Patient is a 62-year-old female that is 1 day postop left shoulder arthroscopy and rotator cuff repair. Patient is doing well and has minimal pain. No acute events overnight. Her labs are have improved today and the hospitalist was okay with patient being discharged home from ICU. Vitals/I&O/Wt Last Vital Signs Temp 98.7 F 01/20/23 09:00 Pulse 73 01/20/23 10:30 Resp 19 H 01/20/23 10:30 BP 115/52 01/20/23 10:30 Pulse Ox 96 01/20/23 09:30 O2 Del Method Room Air 01/20/23 09:30 O2 Flow Rate 2 01/20/23 09:00 FiO2 30 01/20/23 01:42 01/19/23 01/20/23 01/20/23 22:59 06:59 14:59 Intake Total 1432.5 / 1582.5 290.1 / 1872.6 240.1 / 240.1 Output Total 250 / 260 250 / 250 Balance 1432.5 / 1572.5 40.1 / 1612.6 -9.9 / -9.9 Physical Exam Const: COMMON NORMALS: no acute distress, healthy appearing and alert HENMT: COMMON NORMALS: atraumatic HEAD & SCALP: atraumatic Resp: COMMON NORMALS: normal respiratory effort EFFORT & INSPECTION: Yes able to speak in complete sentences and No respiratory distress Extremity: NARRATIVE EXTREMITY EXAM: Left Shoulder- Pt is in left arm ultra sling. Dressing is dry and intact. Unable to assess ROM due to sling and she is restricted to do any abduction of arm post op. Elbow ROM normal. Fingers are warm and well perfused Neuro: SENSORIUM/ORIENTATION: Yes alert Data 01/20/23 06:35 01/20/23 12:16 A&P Assessment and plan (1) Status post arthroscopy of left shoulder: Plan Plan: -Hospitalist on board for medical management -Pain control -Labs reviewed. -No weight-bearing on arm and no abduction of arm -Pt can come out of sling to do some Elbow ROM or let arm hang and do pendulum swings.--NO abduction of left arm. Patient is cleared from an orthopedic standpoint and she will be sent home in a UltraSling of left arm. She can follow-up at Orthopedic clinic in 2 weeks. Attestations Medical Necessity Statement*: Ongoing care for postoperative cuff repair with respiratory distress Coding Level of Care Code Acute Code for Chg Fwd Diagnoses Status post arthroscopy of left shoulder Z98.890
--- NOTE | 2023-01-20 13:05 | P.DS_ITS ---
Discharge Providers Date of Admission: 01/19/2023 Date of Discharge: January 20, 2023 Attending Provider at Admission: Justin Colindres DO Attending Provider at Discharge: Justin Colindres DO Consults: Hospitalist, Dr. Patel Primary Care Provider: Juan Antonio Garcia Diagnoses at Discharge Discharge Diagnosis (1) Status post arthroscopy of left shoulder: Status: Acute Reason for Visit Reason for Visit: M75.102, M75.42, M19.019 Brief History: Patient had been worked up in the outpatient setting for left shoulder rotator cuff tear failed conservative treatment elects proceed with surgical invention left shoulder arthroscopy procedure. Left shoulder rotator cuff tear, AC joint arthritis, subacromial impingement, biceps tendinitis Hospital Course Hospital Course Patient's been seen and worked up in the outpatient settingFor left shoulder pain presents to the preoperative area for left shoulder arthroscopy procedure. Patient was seen evaluated by anesthesia once cleared for surgery patient was taken back to the operative suite patient underwent a left shoulder diagnostic and surgical arthroscopy with rotator cuff repair without any intraoperative issues. During waking up from anesthesia patient was continued to found of being difficulties with excavation and maintaining O2 saturations as a result anesthesia recommended observation for respiratory issues postoperatively in PACU. Internal medicine was subsequently consulted patient was transferred to ICU and placed on BiPAP overnight. Patient was medically managed by the internal medicine team and appreciate their management. Refer to their notes daily for patient's recovery process. On postoperative day 1 patient had recovered well and met requirements from internal medicine standpoint being stable for discharge home. Patient was stable for discharge home from orthopedic standpoint. Patient will receive appropriate discharge instruction as well as pain medication postoperatively and will follow-up in the orthopedic office in 2 weeks. Patient understands and agrees with current plan. All questions answered. We will follow rotator cuff repair protocol. Maintain sling until follow-up. Physical Exam Const: COMMON NORMALS: no acute distress, healthy appearing and alert HENMT: COMMON NORMALS: atraumatic HEAD & SCALP: atraumatic Resp: COMMON NORMALS: normal respiratory effort EFFORT & INSPECTION: Yes able to speak in complete sentences and No respiratory distress Extremity: NARRATIVE EXTREMITY EXAM: Left Shoulder- Pt is in left arm ultra sling. Dressing is dry and intact. Unable to assess ROM due to sling and she is restricted to do any abduction of arm post op. Elbow ROM normal. Fingers are warm and well perfused Neuro: SENSORIUM/ORIENTATION: Yes alert Discharge Data Studies Completed and Pending Completed Studies During Hospitalization Category Date Time Status ES surgery / GI images Routine Exams 01/19/23 06:30 Completed XR chest 1V portable [id number] Stat Exams 01/19/23 16:43 Completed Laboratory Results WBC 7.58 10^3/uL (3.29-11.43) 01/20/23 06:35 Corrected WBC Cancelled 01/20/23 03:55 RBC 3.31 10^6/uL (3.85-5.65) L 01/20/23 06:35 Hgb 10.30 g/dL (11.27-16.99) L 01/20/23 06:35 Hct 33.4 % (36-47) L 01/20/23 06:35 MCV 100.9 fl (85-98) H 01/20/23 06:35 MCH 31.1 pg (27-33) 01/20/23 06:35 MCHC 30.8 g/dL (30-55) 01/20/23 06:35 RDW 12.9 % (12.1-15.1) 01/20/23 06:35 Plt Count 254 10^3/cmm (157-399) 01/20/23 06:35 MPV 9.3 fL (7.4-10.4) 01/20/23 06:35 Gran % Cancelled 01/20/23 03:55 Neut % (Auto) 87.9 % 01/20/23 06:35 Lymph % (Auto) 9.6 % 01/20/23 06:35 [place] % (Auto) 2.0 % 01/20/23 06:35 Eos % (Auto) 0.0 % 01/20/23 06:35 Baso % (Auto) 0.1 % 01/20/23 06:35 Neut # (Auto) 6.66 10^3/uL (1.8-7.7) 01/20/23 06:35 Lymph # (Auto) 0.7 10^3/uL (0.8-4.8) L 01/20/23 06:35 [place] # (Auto) 0.2 10^3/uL (0.2-0.9) 01/20/23 06:35 Eos # (Auto) 0.0 10^3/uL (0.0-0.8) 01/20/23 06:35 Baso # (Auto) 0.0 10^3/uL (0.0-0.1) 01/20/23 06:35 Absolute Gran (auto) Cancelled 01/20/23 03:55 Nucleated RBC % (auto) 0 % 01/20/23 06:35 Nucleated RBCs # 0.0 /100WBC 01/20/23 06:35 Specimen Type Arterial 01/19/23 20: Sample Site Radial, right 01/19/23: ABG pH 7.27 (7.35-7.45) L 01/19/23: ABG pCO2 52.6 mmHg (35-45) H 01/19/23: ABG pO2 94.5 mmHg (80.0-100.0) 01/19/23: ABG HCO3 24.1 mmol/L (22-26) 01/19/23: ABG O2 Saturation 98.0 01/19/23: ABG Base Excess -3.2 mmol/L (-2.0-2.0) L 01/19/23 20: [place] Test Pos 01/19/23 20: A-a O2 Gradient 7.1 mmHg (5-10) 01/19/23 20: Hematocrit 35.0 % (37-47) L 01/19/23 20: Hgb O2 Saturation 94.0 % (95-100) L 01/19/23 20: Carboxyhemoglobin 3.3 %THgb (0.4-20.1) 01/19/23: Methemoglobin 0.8 % (0.4-1.5) 01/19/23 20: Total Hemoglobin 11.4 g/dL (12-16) L 01/19/23 20: Sodium 139.0 mmol/L (131-143) 01/19/23 20: Potassium 4.2 mmol/L (3.5-5.0) 01/19/23 20: Glucose 123.0 mg/dL (70-115) H 01/19/23 20: Ionized Calcium 1.2 mmol/L (1.1-1.4) 01/19/23 20: O2 Delivery Device Bipap 01/19/23 20:23 FiO2 30.0 % 01/19/23 20:23 Senior Production Supervisor ID Sonny 01/19/23 20:23 Sodium 132 mmol/L (136-145) L 01/20/23 12:16 Potassium 3.7 mmol/L (3.5-5.1) 01/20/23 12:16 Chloride 98 mmol/L (98-107) 01/20/23 12:16 Carbon Dioxide 18 mmol/L (22-29) L 01/20/23 12:16 Anion Gap 19.7 (5-19) H 01/20/23 12:16 BUN 14 mg/dL (8-23) 01/20/23 12:16 Creatinine 0.6 mg/dL (0.5-0.9) 01/20/23 12:16 GFR Calculation 101.6 mL/min (90-130) 01/20/23 12:16 Glucose 107 mg/dL (65-115) 01/20/23 12:16 POC Glucose 122 mg/dL (70-110) H 01/20/23 11:20 Estimat Average Glucose 111 01/20/23 03:55 Hemoglobin A1c 5.5 % (4.0-6.0) 01/20/23 03:55 Calculated Osmolality 275 mOsm/kg (285-295) L 01/20/23 12:16 Calcium 8.5 mg/dL (8.5-10.5) 01/20/23 12:16 Iron 38 ug/dL (37-145) 01/19/23 18:02 TIBC 491 mcg/dl 01/19/23 18:02 % Saturation 7.7 % (20-50) L 01/19/23 18:02 Unsat Iron Binding 453 ug/dL (112-347) H 01/19/23 18:02 Total Bilirubin 0.2 mg/dL (0.15-1.2) 01/20/23 03:55 AST 14 U/L (0-32) 01/20/23 03:55 ALT < 5 U/L (0-33) 01/20/23 03:55 Alkaline Phosphatase 58 U/L (35-105) 01/20/23 03:55 NT-Pro-B Natriuret Pep 219 pg/mL (0-125) H 01/19/23 18:02 Total Protein 6.3 g/dL (6.6-8.7) L 01/20/23 03:55 Albumin 3.5 g/dL (3.5-5.2) 01/20/23 03:55 Globulin 2.8 g/dL (1.3-4.6) 01/20/23 03:55 Triglycerides 129 mg/dL (0-150) 01/20/23 03:55 Cholesterol 204 mg/dL (0-200) H 01/20/23 03:55 LDL Cholesterol, Calc 112 mg/dL (50-129) 01/20/23 03:55 Total VLDL Cholesterol 26 mg/dL (0-30) 01/20/23 03:55 HDL Cholesterol 66 mg/dL (60-100) 01/20/23 03:55 Cholesterol/HDL Ratio 3.09 mg/dL (0.0-4.40) 01/20/23 03:55 Vitamin B12 272 pg/mL (232-1245) 01/19/23 18:02 Vitamin B12 Cancelled 01/19/23 18:02 Vit B12 Status Cancelled 01/19/23 18:02 Folate 17.8 ng/mL (4.8-37.3) 01/20/23 03:55 TSH 3.15 uIU/mL (0.27-4.20) 01/19/23 18:02 Urine Color Yellow (Yellow) 01/20/23 02:08 Urine Appearance Cloudy (CLEAR) A 01/20/23 02:08 Urine pH 5 (5-7) 01/20/23 02:08 Ur Specific [place] 1.025 (1.005-1.030) 01/20/23 02:08 Urine Protein 1+ (Negative) H 01/20/23 02:08 Urine Glucose (UA) Norm (Normal) 01/20/23 02:08 Urine Ketones 1+ (Negative) H 01/20/23 02:08 Urine Blood Neg (Negative) 01/20/23 02:08 Urine Nitrate Negative (Negative) 01/20/23 02:08 Urine Bilirubin Neg (Negative) 01/20/23 02:08 Urine Urobilinogen Neg mg/dL (Negative) 01/20/23 02:08 Ur Leukocyte Esterase Negative (Negative) 01/20/23 02:08 Urine RBC None /hpf (0-2) 01/20/23 02:08 Urine WBC None /hpf (0-5) 01/20/23 02:08 Ur Squamous Epith Cells 5-10 /hpf (0-5) H 01/20/23 02:08 Amorphous Sediment 2+ /hpf 01/20/23 02:08 Urine Bacteria 1+ /hpf (NONE) H 01/20/23 02:08 Lamotrigine 3.4 mcg/mL (2.5-15.0) 01/19/23 18:02 Vitals Last Vital Signs Temp 98.6 F 01/20/23 13:59 Pulse 65 01/20/23 14:30 Resp 19 H 01/20/23 14:30 BP 107/47 01/20/23 14:30 Pulse Ox 97 01/20/23 14:30 O2 Del Method Room Air 01/20/23 14:30 O2 Flow Rate 2 01/20/23 09:00 FiO2 30 01/20/23 01:42 Discharge Plan Discharge Patient Disposition: Home Condition: Stable Prescriptions: New pantoprazole 40 mg Tablet,Delayed Release (Dr/Ec) 40 mg PO DAILY Qty: 30 0RF tramadol 50 mg tablet 50 mg PO Q6H PRN (Reason: pain) Qty: 20 0RF Continued tramadol 50 mg tablet 50 mg PO TID PRN (Reason: Pain, Moderate) lamotrigine [Lamictal] 150 mg tablet 150 mg PO BID Qty: 180 3RF mupirocin 2 % ointment 1 applic topical BID Qty: 22 1RF Rx Instructions: Apply to affected area(s) until healed gabapentin 300 mg capsule 300 mg PO TID Qty: 270 3RF meloxicam 7.5 mg tablet 7.5 mg PO DAILY 90 Days Qty: 90 0RF atorvastatin 40 mg tablet See Rx Instructions .ROUTE .COMPLEX Qty: 90 3RF Dose Instruction: TAKE 1 TABLET EVERY DAY Rx Instructions: TAKE 1 TABLET EVERY DAY diltiazem HCl 240 mg capsule,extended release 24hr 240 mg PO DAILY estradiol 1 mg tablet 1.5 mg PO DAILY baclofen 10 mg tablet 10 mg PO DAILY PRN (Reason: Muscle Spasm) lisinopril 10 mg tablet 10 mg PO DAILY clobetasol 0.05 % ointment 1 applic topical BID PRN (Reason: Itching) Rx Instructions: Apply to affected area no more than 2 weeks per month, not for face or skin folds. albuterol sulfate 90 mcg/actuation HFA aerosol inhaler 2 puff inhalation Q6H PRN (Reason: Shortness Of Breath) Discontinued potassium chloride 8 mEq capsule, extended release 8 meq PO DAILY Qty: 100 3RF Rx Instructions: Take with Furosemide pantoprazole 40 mg tablet,delayed release (DR/EC) 10 mg PO DAILY No Action furosemide 20 mg tablet 20 mg PO DAILY PRN (Reason: edema) Qty: 100 3RF Discharge Orders: Discharge Order (Routine); Ordered 01/19/23 Ordered By: Isaac Colindres Referrals: Justin Colindres DO [Physician] - 02/03/23 3:15 pm (We have notified your physician's clinic of the need for a follow-up appointment to be scheduled. If you have not heard from them within the next 2 business days, please call them directly. You may also reach out to our manager nursing at [phone] and she can assist you.) Discharge Diet: Advance as tolerated Discharge Activity: Limit activity as instructed Patient Instructions: Tramadol (By mouth) (Ultram, Ultram ER, [place], Theratramadol-60, Qdolo), Pantoprazole (By mouth) (Protonix), Atherectomy (DC), Shoulder Arthroscopy (DC), Rotator Cuff Tear Repair (DC), COPD Stoplight, Post Anesthesia Care Activity Restrictions/Additional Instructions: Orthopedic discharge instructions: Keep arm in shoulder sling and limit activity for the next 2 weeks until your follow-up appointment. To prevent frozen shoulder you can take arm out of sling and let it hang down and do pendulum swings. No weight-bear to the operative extremity and no abduction of arm until cleared by orthopedic doctor. Ice and elevate as needed for pain and swelling Take pain medication as prescribed Take antinausea medication as needed May supplement for pain with ibuprofen [id number] as needed Patient should leave dressing on in place for 72 hours, at that time may remove all dressings leave sutures in place may rinse incisions with warm soapy water pat dry and redress with dry dressing. No baths or soaks Follow-up in the orthopedic office in 2 weeks Contact the office for any questions or concerns Follow-up with a primary care provider within next 1 week. Should have a sleep study done as an outpatient. Do not take potassium supplements for now. Discharge Attestations Time Spent in Discharge Care*: less than 30 min Quality Metrics Clinical Quality Measures [ No reported AMI, CVA or VTE this stay] Coding Level of Care Code Acute Code for Chg Fwd Diagnoses Status post arthroscopy of left shoulder Z98.890 Time Spent (min) 20
[2023-01-20] MEDS: cephALEXin 500 mg Capsule PO (13:36)
--- NOTE | 2023-01-20 15:20 | PC.NURSE ---
Discharge: 1517: Extensive education for after care right shoulder surgery, restrictions, S/S of infection, when to call provider or when to seek medical care, also provided written education on these as well as verbal and written education on medications and S/S of overdose. Patient and friend at bedside had no questions and verbalized understanding of all teachings. Patient transported to personal vehicle via wheelchair with friend as primary delivery truck driver.
[2023-01-24 18:45] LABS: Lamotrigine (Lamictal) Level 3.4 mcg/mL (2.5-15.0)
[2023-01-26 00:21] LABS: Vitamin B12 272 pg/mL (232-1245)
== END 2023-01-20 15:27 | disposition home or self-care (01) ==
LOC: OR 10:12 → ICU 17:06
PROVIDERS: Anesthesiology; Family Medicine; Student in an Organized Health Care Education/Training Program; PCP Nurse Practitioner Family; Visit Provider Student in an Organized Health Care Education/Training Program
PROC: (CPT 29805; principal; 2023-01-19 11:20)
PROC: (CPT 29826; 2023-01-19 11:20)
PROC: (CPT 29824; 2023-01-19 11:20)
PROC: 0LQ24ZZ Repair Left Shoulder Tendon, Percutaneous Endoscopic Approach (ICD-10-PCS; CPT 29827; 2023-01-19 11:20)
PROC: (CPT 23405; 2023-01-19 11:20)
PROC: (CPT 29824; 2023-01-19 11:20)
DX: M75.122 Complete rotator cuff tear or rupture of left shoulder, not specified as traumatic (principal); M75.42 Impingement syndrome of left shoulder; M19.012 Primary osteoarthritis, left shoulder; S46.112A Strain of muscle, fascia and tendon of long head of biceps, left arm, initial encounter; J96.92 Respiratory failure, unspecified with hypercapnia; E87.29 Other acidosis; G47.33 Obstructive sleep apnea (adult) (pediatric); J44.9 Chronic obstructive pulmonary disease, unspecified; G40.219 Localization-related (focal) (partial) symptomatic epilepsy and epileptic syndromes with complex partial seizures, intractable, without status epilepticus; I10 Essential (primary) hypertension; E78.2 Mixed hyperlipidemia; F17.200 Nicotine dependence, unspecified, uncomplicated; X58.XXXA Exposure to other specified factors, initial encounter
CPT/HCPCS: 29824; 29826; 29827; 29828; 36415; 36416; 36600; 71045; 80048; 80051; 80053; 80061; 80175; 81001; 82330; 82607; 82746; 82805; 82962; 83036; 83540; 83550; 83880; 84443; 85025; 94640; 94660; 96376; 97165; C1713; J0131; J0171; J0690; J1100; J1170; J1815; J1885; J2250; J2270; J2310; J2405; J2704; J2710; J2795; J3010; J3490; J7030; J7613; J7626

== ENCOUNTER → 2023-02-03 15:55 | Outpatient (BNVA) | payer MEDICARE, SELFPAY | PROVIDERS: PCP Nurse Practitioner Family; Visit Provider Student in an Organized Health Care Education/Training Program | DX: M75.102 Unspecified rotator cuff tear or rupture of left shoulder, not specified as traumatic (principal); M75.42 Impingement syndrome of left shoulder; M19.012 Primary osteoarthritis, left shoulder | CPT/HCPCS: 99024 ==

== ENCOUNTER 2023-02-22 10:38 | Outpatient (RCR) | payer MEDICARE, SELFPAY | END 2023-03-17 23:59 | disposition home or self-care (01) | LOC: SPT 10:38 | PROVIDERS: PCP Nurse Practitioner Family; Visit Provider Student in an Organized Health Care Education/Training Program | DX: Z47.89 Encounter for other orthopedic aftercare (principal); M75.102 Unspecified rotator cuff tear or rupture of left shoulder, not specified as traumatic | CPT/HCPCS: 97110; 97161 ==

== ENCOUNTER 2023-03-18 06:00 | Outpatient (RCR) | payer MEDICARE, SELFPAY | END 2023-04-17 23:59 | disposition home or self-care (01) | LOC: SPT 06:00 | PROVIDERS: PCP Nurse Practitioner Family; Visit Provider Student in an Organized Health Care Education/Training Program | DX: Z47.89 Encounter for other orthopedic aftercare (principal) | CPT/HCPCS: 97110; 97140 ==

== ENCOUNTER → 2023-03-22 13:41 | Outpatient (BNVA) | payer MEDICARE, SELFPAY | PROVIDERS: PCP Nurse Practitioner Family; Visit Provider Student in an Organized Health Care Education/Training Program | DX: Z98.890 Other specified postprocedural states (principal); M75.102 Unspecified rotator cuff tear or rupture of left shoulder, not specified as traumatic; M75.42 Impingement syndrome of left shoulder; M19.012 Primary osteoarthritis, left shoulder | CPT/HCPCS: 99024; 99213 ==

== ENCOUNTER 2023-04-19 14:13 | Outpatient (RCR) | payer MEDICARE, SELFPAY | END 2023-05-18 23:59 | disposition home or self-care (01) | LOC: SPT 14:13 | PROVIDERS: PCP Nurse Practitioner Family; Visit Provider Student in an Organized Health Care Education/Training Program | DX: Z98.890 Other specified postprocedural states (principal) | CPT/HCPCS: 97110 ==

== ENCOUNTER 2023-05-19 06:00 | Outpatient (RCR) | payer MEDICARE, SELFPAY | END 2023-06-16 23:59 | disposition home or self-care (01) | LOC: SPT 06:00 | PROVIDERS: PCP Nurse Practitioner Family; Visit Provider Student in an Organized Health Care Education/Training Program | DX: Z47.89 Encounter for other orthopedic aftercare (principal); M75.102 Unspecified rotator cuff tear or rupture of left shoulder, not specified as traumatic; I10 Essential (primary) hypertension; I47.10 Supraventricular tachycardia, unspecified | CPT/HCPCS: 97110; 99214 ==

== ENCOUNTER → 2023-05-19 11:31 | Outpatient (BNVA) | payer MEDICARE, SELFPAY | PROVIDERS: PCP Nurse Practitioner Family; Visit Provider Nurse Practitioner Family | DX: I10 Essential (primary) hypertension (principal); R00.1 Bradycardia, unspecified; I47.10 Supraventricular tachycardia, unspecified; R55 Syncope and collapse; F17.200 Nicotine dependence, unspecified, uncomplicated | CPT/HCPCS: 93005 ==

== ENCOUNTER 2023-05-25 07:56 | Outpatient (CLI) | payer MEDICARE, SELFPAY ==
--- NOTE | 2023-05-25 08:27 | ECG_ITS ---
[facility] Test Date: 2023-05-25 Pat Name: Perla Miller Department: Room: Gender: Female Set Decorator: : 1960 Requested By: Giselle Montero Order Number: [id number] Cameron MD: Antonio Graves M.D. Interpretive Statements NAME OF STUDY: LEXISCAN SESTAMIBI STRESS TEST INDICATION: [SVT, HTN, PRE SYNCOPE, ] Procedure: At the baseline, the blood pressure was 130/69 mmHg with a heart rate of 47 bpm. The electrocardiogram showed sinus bradycardia, incomplete right bundle branch block with normal ST and T's. The Lexiscan was infused over a period of 20 seconds. A total of 0.4 mg of Lexiscan was infused. The stress phase was continued for a total of 5 minutes. Heart rate was at the end of stress phase was 48 bpm and a blood pressure of 106/56 mmHg. The EKG at the peak infusion revealed sinus bradycardia with no significant ST-T wave changes. Sestamibi was injected 20 seconds after the Lexiscan infusion. Blood pressure at the end of recovery phase was 109/56 mmHg with a heart rate of 50 bpm. Conclusion: 1. Normal EKG response to Lexiscan infusion 2. No Lexiscan induced chest pain or cardiac arrhythmia. 3. Normal blood pressure and heart rate response. 4. Sestamibi/sestamibi perfusion scan pending; see separate report. Electronically Signed On 06-10-2023 11:42:50 PEN RULER OPERATOR by Antonio Graves M.D. [email or web address]
--- NOTE | 2023-05-25 08:28 | NMCV_ITS ---
NM claudia perf SPECT r/s* [id number] Perla Miller Age: 63 Gender: F : 1960 Exam Date: 05/25/2023 09:19 Ordering Phys: Giselle Montero Technologist: EZE Benson Exam Location: [facility] Indications: SUPRAVENTRICULAR TACHYCARDIA STRESS TEST Please see separate stress test report in [facility] for full findings IMAGE PROTOCOL Rest/Stress 1 Lexiscan Day Radiopharmaceutical Dose (mCi) Administration Site Administered by Rest: Tc-99m 10.3 IV EZE [place] Sestamibi Stress:Tc-99m 32.7 IV EZE [place] Sestamibi Rest: 25-May-2023 60 Discovery 630 Stress: 25-May-2023 30 Discovery 630 0.4mg Lexiscan. Supine position only as patient was unable to lay prone. SPECT RESULTS Technical Quality: Excellent Raw Data Analysis: Normal Image Corrections: No attenuation or motion correction applied Summed Stress Score: 0 Summed Rest Score: 1 Summed Difference Score: 0 PERFUSION FINDINGS There is small sized area of reduced radiotracer uptake in anterior and apical gonzales. Prone imaging is not performed. This could represent small area of ischemia in LAD territory versus attenuation artifact. Clinical correlation is required. FUNCTIONAL RESULTS (calculated via Gated SPECT) Stress Image LV EF (%): 89 Stress EDV (mL):64 TID: 1.03 Stress ESV (mL):7 FUNCTIONAL FINDINGS: There is normal left ventricular systolic function. IMPRESSIONS 1. Small area of ischemia in the LAD territory versus attenuation artifact. Clinical correlation is required. 2. LV systolic function is normal Antonio Graves MD (Electronically Signed) Final Date: 25 May 2023 14:31 S
[2023-05-25 09:27] VITALS: BMI 28.5
[2023-05-25] MEDS: regadenoson 0.4 Mg/5 ml Syringe IVP (09:55)
[2023-05-25 10:17] VITALS: BP 110/54; PULSE 56
== END 2023-05-25 07:57 | disposition home or self-care (01) ==
LOC: CDL 07:57
PROVIDERS: PCP Nurse Practitioner Family; Visit Provider Nurse Practitioner Family
DX: I47.10 Supraventricular tachycardia, unspecified (principal); I10 Essential (primary) hypertension; R55 Syncope and collapse; R93.1 Abnormal findings on diagnostic imaging of heart and coronary circulation
CPT/HCPCS: 36415; 78452; 93017; 96374; A9500; J2785

== ENCOUNTER → 2023-06-09 08:38 | Outpatient (BNVA) | payer MEDICARE, SELFPAY | PROVIDERS: PCP Registered Nurse; Visit Provider Registered Nurse | DX: E11.9 Type 2 diabetes mellitus without complications; I10 Essential (primary) hypertension | CPT/HCPCS: 80053; 80061; 82607; 85025 ==

== ENCOUNTER → 2023-06-21 10:53 | Outpatient (BNVA) | payer MEDICARE, SELFPAY | PROVIDERS: PCP Registered Nurse; Visit Provider Student in an Organized Health Care Education/Training Program | DX: Z98.890 Other specified postprocedural states (principal); M75.102 Unspecified rotator cuff tear or rupture of left shoulder, not specified as traumatic; M75.42 Impingement syndrome of left shoulder; M19.012 Primary osteoarthritis, left shoulder | CPT/HCPCS: 99213 ==

== ENCOUNTER → 2023-07-05 11:33 | Outpatient (BNVA) | payer MEDICARE, SELFPAY | PROVIDERS: PCP Registered Nurse; Visit Provider Specialist | DX: G40.219 Localization-related (focal) (partial) symptomatic epilepsy and epileptic syndromes with complex partial seizures, intractable, without status epilepticus (principal) | CPT/HCPCS: 99214 ==

== ENCOUNTER 2023-07-06 10:21 | Outpatient (CLI) | payer MEDICARE, SELFPAY ==
--- NOTE | 2023-07-06 10:30 | CT_ITS ---
WS: [id number] LDCT LUNG CANCER SCREENING TECHNIQUE: Noncontrast CT of the chest with coronal and sagittal reformatted images. CLINICAL INFORMATION: F17.210 - Nicotine dependence, cigarettes, uncomplicated COMPARISON: None DLP: 64.50 mGy.cm DIvol: Mean CTDIvol: 1.40 (mGy) All CT scans at [facility] use at least one of these dose optimization techniques: automat ed exposure control; mA and/or kV adjustment per patient size (includes targeted exams where dose is matched to clinical indication); or iterative reconstruction. FINDINGS: Lungs are well aerated. No suspicious pulmonary parenchymal abnormalities. Tiny subpleural nodules RIGHT middle lobe. 5 mm nodule subpleural RIGHT middle lobe. 3 mm nodule RIGHT lower lobe lat erally. Slight bibasilar atelectasis. Normal caliber thoracic aorta. Aortic calcification. No mediastinal or hilar lymphadenopathy. No axi llary lymphadenopathy. Adrenal glands are normal. Normal GE junction. IMPRESSION: CT/CT lung screening [id number] LUNG-RADS: 2-Benign Appearance or Behavior FOLLOW UP: 12 Month: Continue annual screening with LDCT
== END 2023-07-06 10:22 | disposition home or self-care (01) ==
LOC: RAD 10:21
PROVIDERS: PCP Registered Nurse; Visit Provider Registered Nurse
DX: Z12.2 Encounter for screening for malignant neoplasm of respiratory organs (principal); F17.210 Nicotine dependence, cigarettes, uncomplicated; R91.8 Other nonspecific abnormal finding of lung field; J98.11 Atelectasis
CPT/HCPCS: 71271

== ENCOUNTER 2023-07-13 12:01 | Outpatient (CLI) | payer MEDICARE, SELFPAY ==
--- NOTE | 2023-07-13 12:00 | MM_ITS ---
WS: [id number] VIEWS: MLO and CC views both breasts. 3D digital tomosynthesis is also included in this exam. Comparison made with prior exam of 07/10/2007, 07/11/2008, 07/18/2009, 07/13/2010, 07/15/2011, 10/31/2013, , 07/27/2016, 08/01/2017, 11/17/2018, 01/29/2020, 05/28/2021, 06/24/2022.. Findings: There was no sign of mass, architectural distortion or suspicious calcification in either breast. The breasts are almost entirely fatty Impression: MM/[place] [id number] BI-RADS: 1-Negative FOLLOW-UP: 1 Year Follow-up This mammogram was also analyzed by the Computer Aided Detection System R2 Imag e Manager Support Services.
== END 2023-07-13 12:02 | disposition home or self-care (01) ==
LOC: MOBLMAM 12:06
PROVIDERS: PCP Registered Nurse; Visit Provider Registered Nurse
DX: Z12.31 Encounter for screening mammogram for malignant neoplasm of breast (principal)
CPT/HCPCS: 77063; 77067

== ENCOUNTER 2023-08-21 10:16 | Emergency (ER) | payer MEDICARE, SELFPAY ==
[2023-08-21 10:39] VITALS: BP 116/51; PULSE 51; TEMP 36.5; O2SAT 96; BMI 25.3
--- NOTE | 2023-08-21 10:54 | XRR_ITS ---
PROCEDURE INFORMATION: Exam: XR Left Knee Exam date and time: 08/21/2023 11:25 AM Age: 63 years old Clinical indication: Pain and injury or trauma; Fall; Work related; Blunt trauma; Knee; Left; Additional info: Fall, pain TECHNIQUE: Imaging protocol: Radiologic exam of the left knee. Views: 3 views. COMPARISON: No relevant prior studies available. FINDINGS: Bones/joints: No acute fracture or malalignment. Mild medial and patellofemoral compartment degenerative changes. No joint effusion. Soft tissues: Normal. XR/XR knee LT 3V* [id number] IMPRESSION: No acute fracture or malalignment.
--- NOTE | 2023-08-21 11:51 | ED_ITS ---
HPI - Extremity Problem General: Chief complaint: Extremity Injury, Lower Stated complaint: left knee pain Time Seen by Provider: 08/21/23 11:37 Source: patient Mode of arrival: ambulatory History of Present Illness: 63-year-old female presents emergency ro om with complaint of knee pain. She was working will look at this morning she tripped over a wheelchair landed on her left knee she has some abrasions anteriorly today although better partial weight and walk. She denies striking her head denies any other injury. No previous problems with that particular knee she has had right knee replaced in the past. Complaint: joint pain Onset (ago): hour(s) Location: left and knee Quality: aching Exacerbating factors: weight bearing Review of Systems Musc: Reports: joint pain PFSH ED PFSH: Medical History History of nonmelanoma skin cancer No pertinent past medical history neghx:dm,thyroid PCP: Sumanth Pettit Abuse of smoked substance Essential hypertension Mixed hyperlipidemia COPD, mild Chronic back pain Arrhythmia, atrial RLS (restless legs syndrome) Obstructive sleep apnea Enrolled in chronic care management Complex partial epilepsy Chronic migraine without aura, intractable, with status migrainosus SVT (supraventricular tachycardia) Surgical History History of tonsillectomy and adenoidectomy Hx of hysterectomy (~1998) POLLY---one ovary spared; performed by Sanna Hx of knee surgery (~02/2016) right knee History of radiofrequency ablation procedure for cardiac arrhythmia (~2017) Family History Mother Breast cancer dx--45 Stroke Hypertension Thyroid disease Family/Other Breast cancer Breast cancer---- Maternal aunt x 5 Father Hypertension Denies family history of Colon cancer Ovarian cancer Diabetes Uterine cancer Social History Smoking and tobacco/nicotine status: current every day tobacco/nicotine user Substance/Drug Use: never Physical Exam Narrative: EXAM NARRATIVE: Examination of the left knee no ligamentous instability or laxity there is some superficial abrasions across the patella no joint effusion. Patient able to flex and extend passive range of motion mild discomfort Course Vital Signs: Vital signs: Vital Signs Temperature 97.7 F 08/21/23 10:39 Pulse Rate 51 L 08/21/23 10:39 Blood Pressure 116/51 08/21/23 10:39 Pulse Oximetry 96 08/21/23 10:39 Oxygen Delivery Me thod Room Air 08/21/23 10:39 MDM - Extremity (Nontraumatic) Medical Decision Making X-ray shows no acute fracture. On physical exam joint is stable no ligamentous instability or laxity is noted. Patient already has been partial weightbearing offered crutches and a knee immobilizer she says she has a brace and crutches at home she will use if needed. Have her hold her meloxicam use diclofenac for the next 10 days if symptoms persist or she is not able to bear full weight after the next few days follow-up with her primary care provider work comp doctor Medical Records I reviewed the patient's medical records. Lab Data Radiology Impressions Knee X-Ray 08/21/23 10:54 IMPRESSION: No acute fracture or malalignment. All radiology interpretation(s) finalized by discharge Discharge Plan Discharge Patient Disposition: Home Clinical Impression: Left knee sprain Condition: Stable Prescriptions: New diclofenac sodium 75 mg tablet,delayed release (DR/EC) 75 mg PO Q12H PRN (Reason: pain) Qty: 20 0RF No Action tramadol 50 mg tablet 50 mg PO TID PRN (Reason: Pain, Moderate) prednisone 20 mg tablet 20 mg PO DAILY Qty: 15 0RF Rx Instructions: 60 mg X 3 days 40 mg X 2 days 20 mg X 2 days mupirocin 2 % ointment 1 applic topical BID Qty: 22 1RF Rx Instructions: Apply to affected area(s) until healed meloxicam 7.5 mg tablet 7.5 mg PO DAILY 90 Days Qty: 90 0RF atorvastatin 40 mg tablet See Rx Instructions .ROUTE .COMPLEX Qty: 90 3RF Dose Instruction: TAKE 1 TABLET EVERY DAY Rx Instructions: TAKE 1 TABLET EVERY DAY furosemide 20 mg tablet 20 mg PO DAILY PRN (Reason: edema) Qty: 100 3RF estradiol 1 mg tablet See Rx Instructions .ROUTE .COMPLEX Qty: 135 10RF Dose Instruction: TAKE 1 AND 1/2 TABLETS EVERY DAY Rx Instructions: TAKE 1 AND 1/2 TABLETS EVERY DAY gabapentin 300 mg capsule See Rx Instructions .ROUTE .COMPLEX Qty: 270 10RF Dose Instruction: TAKE 1 CAPSULE THREE TIMES DAILY Rx Instructions: TAKE 1 CAPSULE THREE TIMES DAILY potassium chloride 8 mEq capsule, extended release See Rx Instructions .ROUTE .COMPLEX Qty: 90 3RF Dose Instruction: TAKE 1 CAPSULE EVERY DAY (TAKE WITH FUROSEMIDE) Rx Instructions: TAKE 1 CAPSULE EVERY DAY (TAKE WITH FUROSEMIDE) pantoprazole 40 mg tablet,delayed release (DR/EC) See Rx Instructions .ROUTE .COMPLEX Qty: 90 3RF Dose Instruction: TAKE 1 TABLET EVERY DAY Rx Instructions: TAKE 1 TABLET EVERY DAY baclofen 10 mg tablet See Rx Instructions .ROUTE .COMPLEX Qty: 90 3RF Dose Instruction: TAKE 1 TABLET EVERY DAY NEEDED FOR MUSCLE SPASM(S) Rx Instructions: TAKE 1 TABLET EVERY DAY NEEDED FOR MUSCLE SPASM(S) lamotrigine [Lamictal] 200 mg tablet 200 mg PO BID Qty: 180 3RF albuterol sulfate 90 mcg/actuation HFA aerosol inhaler See Rx Instructions .ROUTE .COMPLEX Qty: 54 0RF Dose Instruction: INHALE 2 PUFFS BY MOUTH EVERY 6 HOURS NEEDED FOR BRONCHOSPASM Rx Instructions: INHALE 2 PUFFS BY MOUTH EVERY 6 HOURS NEEDED FOR BRONCHOSPASM diltiazem HCl 240 mg capsule,extended release 24hr 240 mg PO DAILY lisinopril 10 mg tablet 10 mg PO DAILY clobetasol 0.05 % ointment 1 applic topical BID PRN (Reason: Itching) Rx Instructions: Apply to affected area no more than 2 weeks per month, not for face or skin folds. tramadol 50 mg tablet 50 mg PO Q6H PRN (Reason: pain) Qty: 20 0RF Discharge Orders: Discharge ED (Routine); Ordered 08/21/23 Ordered By: Tadeo George Referrals: Roberto Pettit FNP [Primary Care Provider] - Discharge Diet: Usual diet Discharge Activity: Increase activity as tolerated Patient Instructions: Opioid Safety, Pain Management Activity Restrictions/Additional Instructions: Thank you for choosing [facility] for your healthcare needs today. Please realize this is an emergency room and that we are providing you with a medical screening exam and this may not be complete and all inclusive of all the testing and or work up that you may need to determine your ailment or severity of your illness. It is very important that you follow up as instructed or that you return to the Emergency Department should you have concerns or if your condition changes or worsens in any way. You were seen today for the left knee sprain. You reported that you had crutches and a brace at home you can use use those as needed. Hold your meloxicam and you can use diclofenac for the next 10 days as needed. If symptoms persist follow-up with your primary care doctor or your work comp doctor for reevaluation Coding Level of Care Code ED Overhauler for Duane Golden
[2023-08-21 13:36] VITALS: BP 116/51; PULSE 51; TEMP 36.5; O2SAT 96
== END 2023-08-21 13:39 | disposition home or self-care (01) ==
PROVIDERS: Emergency Provider Family Medicine; PCP Registered Nurse
DX: S83.92XA Sprain of unspecified site of left knee, initial encounter (principal); Z72.0 Tobacco use; E78.2 Mixed hyperlipidemia; J44.9 Chronic obstructive pulmonary disease, unspecified; I10 Essential (primary) hypertension; W18.09XA Striking against other object with subsequent fall, initial encounter
CPT/HCPCS: 73562; 99283

== ENCOUNTER → 2023-11-09 09:42 | Outpatient (BNVA) | payer MEDICARE, SELFPAY | PROVIDERS: PCP Registered Nurse; Visit Provider Internal Medicine Cardiovascular Disease | DX: I95.89 Other hypotension (principal); E78.2 Mixed hyperlipidemia; G44.029 Chronic cluster headache, not intractable; I47.10 Supraventricular tachycardia, unspecified | CPT/HCPCS: 99214 ==

== ENCOUNTER 2023-11-22 09:51 | Outpatient (CLI) | payer MEDICARE, SELFPAY | END 2023-11-22 09:52 | disposition home or self-care (01) | PROVIDERS: PCP Registered Nurse; Visit Provider Registered Nurse | DX: M79.672 Pain in left foot (principal); M79.671 Pain in right foot; R60.0 Localized edema | CPT/HCPCS: 93922 ==

== ENCOUNTER → 2023-12-24 13:59 | Outpatient (BNVA) | payer MEDICARE, SELFPAY | PROVIDERS: PCP Registered Nurse; Visit Provider Emergency Medicine | DX: R09.81 Nasal congestion (principal) | CPT/HCPCS: 87426 ==

== ENCOUNTER → 2024-05-09 10:07 | Outpatient (BNVA) | payer MEDICARE, SELFPAY | PROVIDERS: PCP Registered Nurse; Visit Provider Nurse Practitioner Family | DX: I95.89 Other hypotension (principal); E78.2 Mixed hyperlipidemia | CPT/HCPCS: 99213 ==

== ENCOUNTER 2024-06-12 12:08 | Outpatient (CLI) | payer MEDICARE, SELFPAY ==
--- NOTE | 2024-06-12 12:31 | XRR_ITS ---
PROCEDURE INFORMATION: Exam: XR Right Hand Exam date and time: 06/12/2024 12:40 PM Age: 64 years old Clinical indication: Pain; Hand; Right; HX of hodgkins lymphoma; Additional info: M19.041 - primary osteoarthritis, right hand TECHNIQUE: Imaging protocol: Radiologic exam of the right hand. Views: 3 or more views. COMPARISON: No relevant prior studies available. FINDINGS: Bones/joints: Alignment is normal. No acute fracture. No bone erosion. Mild joint space narrowing at the triscaphe and radiocarpal joints. No significant osteophytes. Soft tissues: Visible soft tissues are unremarkable. XR/XR hand RT min 3V* [id number] IMPRESSION: Mild nonspecific joint space narrowing at the radiocarpal and triscaphe joints. No bone erosions or significant osteophytes.
== END 2024-06-12 12:09 | disposition home or self-care (01) ==
PROVIDERS: PCP Registered Nurse; Visit Provider Registered Nurse
DX: M19.041 Primary osteoarthritis, right hand (principal)
CPT/HCPCS: 73130

== ENCOUNTER → 2024-06-18 09:57 | Outpatient (BNVA) | payer MEDICARE, SELFPAY | PROVIDERS: PCP Registered Nurse; Visit Provider Registered Nurse | DX: M19.049 Primary osteoarthritis, unspecified hand (principal); Z13.1 Encounter for screening for diabetes mellitus | CPT/HCPCS: 83036; 84550; 85651; 86140; 86431 ==

== ENCOUNTER 2024-06-24 18:57 | Observation (INO) | payer MEDICARE, SELFPAY ==
[2024-06-24] VITALS (9 sets, daily range): BP systolic 114–152; BP diastolic 52–80; PULSE 83–93; RESP 18–20; TEMP 37–37.4; O2SAT 75–98; BMI 27.1; BMI 27.0
--- NOTE | 2024-06-24 20:04 | XRR_ITS ---
PROCEDURE INFORMATION: Exam: XR Chest Exam date and time: 06/24/2024 8:14 PM Age: 64 years old Clinical indication: Shortness of breath; Prior surgery; Surgery date: 6+ months; Surgery type: Cardiac ablation; Additional info: SOB TECHNIQUE: Imaging protocol: Radiologic exam of the chest. Views: 1 view. COMPARISON: CT lung screening [id number] 07/06/2023 10:39 AM FINDINGS: Lungs: There is hyperinflation of the lung alvarado. There is no focal lung consolidation. Pleural spaces: There are no pleural effusions. Heart/Mediastinum: Heart is normal in size. Bones/joints: Unremarkable. XR/XR chest 1V [id number] IMPRESSION: Hyperinflation of the lung alvarado most consistent with COPD.
[2024-06-24 20:27] LABS: Influenza A NEGATIVE (Negative); Influenza B NEGATIVE (Negative); SARS-CoV-2 PCR NEGATIVE (Negative)
[2024-06-24 20:34] LABS: Respiratory Syncytial Virus Ce POSITIVE (Negative)
[2024-06-24 20:54] LABS: Basophils # 0.1 10^3/uL (0.0-0.1); Basophils % 0.6 %; Eosinophils % 0.2 %; Hematocrit 44.2 % (36-47); Lymphocytes # 0.8 10^3/uL (0.8-4.8); Lymphocytes % 8.1 %; Mean Corpuscular HGB Conc 30.1 g/dL (30-55); Mean Corpuscular Hemoglobin 29.4 pg (27-33); Mean Corpuscular Volume 97.6 fl (85-98); Mean Platelet Volume 9.2 fL (7.4-10.4); Monocytes # 0.8 10^3/uL (0.2-0.9); Monocytes % 7.5 %; Neutrophils # 8.46 10^3/uL (1.8-7.7); Neutrophils % 83.2 %; Nucleated Red Blood Cells % 0 %; Platelet Count 249 10^3/cmm (157-399); Red Blood Count 4.53 10^6/uL (3.85-5.65); Red Cell Distribution Width 15.6 % (12.1-15.1); White Blood Count 10.16 10^3/uL (3.29-11.43)
[2024-06-24 21:15] LABS: Alanine Aminotransferase 12 U/L (0-33); Albumin Level 4.1 g/dL (3.5-5.2); Alkaline Phosphatase 96 U/L (35-105); Anion Gap 20.3 (5-19); Aspartate Amino Transferase 24 U/L (0-32); Blood Urea Nitrogen 20 mg/dL (8-23); Calcium 9.9 mg/dL (8.5-10.5); Carbon Dioxide 24 mmol/L (22-29); Chloride 95 mmol/L (98-107); Creatinine Clr Calc Pharmacy 62.2761; Globulin 4.3 g/dL (1.3-4.6); Glomerular Filtration Rate 72.4 mL/min (90-130); Glucose 101 mg/dL (65-115); Osmolality Calculated 283 mOsm/kg (285-295); Potassium 4.3 mmol/L (3.5-5.1); Sodium 135 mmol/L (136-145); Total Bilirubin 0.4 mg/dL (0.15-1.2); Total Protein 8.4 g/dL (6.6-8.7)
[2024-06-24 21:16] LABS: Lactic Sepsis W/Reflex 1.3 mmol/L (0.5-2.2)
[2024-06-24] MEDS: acetaminophen 500 mg Tablet 1000 MG PO (21:42)
[2024-06-24] MEDS: methylPREDNISolone sod succ 125 mg/2 mL INJ IVP (21:42)
--- NOTE | 2024-06-24 22:17 | PM.HP ---
Providers/Chief Complaint Primary Care Provider: ILEANA Louis Chief Complaint: chills, weakness, sob, aches History of Present Illness Perla Miller is a 64 year old female with history of chronic smoking, COPD, does not use oxygen, presented with chief complaint of worsening shortness of breath. Patient is stating that her symptoms started 3 to 4 days ago with significant lethargy, fatigue, myalgia, couple episode of loose stools, subjective fevers, today she decided to come to the hospital for worsening of shortness of breath hypoxia and worsening of weakness. She is not endorsing chest pain. She is endorsing smoking 1 pack/day. She only uses albuterol at home. Endorsing productive cough, bringing white sputum Workup in the ER revealed RSV, she is hypoxic requiring 4.5 L oxygen, I requested procalcitonin She received steroids and albuterol treatment in the ER Review of Systems Const: Reports: fever(s) and chills Eyes: Denies: change in vision ENMT: Denies: throat pain Card: Denies: chest pain Resp: Reports: dyspnea and productive cough Medications/Allergies Home Medications ?Medication ?Instructions ?Recorded ?Confirmed ?Last Taken ?Type mupirocin 2 % topical ointment 1 applic topical BID #22 grams 12/29/21 06/22/24 01/17/23 Rx tramadol 50 mg tablet 50 mg PO TID PRN Pain, Moderate 04/27/22 06/22/24 01/18/23 History clobetasol 0.05 % topical ointment 1 applic topical BID PRN Itching 01/19/23 06/22/24 01/18/23 History tramadol 50 mg tablet 50 mg PO Q6H PRN pain #20 tabs 01/20/23 06/22/24 Unknown Rx gabapentin 300 mg capsule See Rx Instructions .Route 02/22/23 06/22/24 Unknown Rx .COMPLEX #270 caps albuterol sulfate 90 mcg/actuation 2 inh inhalation Q4H PRN shortness 12/24/23 06/22/24 Unknown Rx aerosol inhaler of breath or wheezing #6.7 grams furosemide 20 mg tablet 20 mg PO DAILY edema #90 tabs 01/31/24 06/22/24 Unknown Rx lisinopril 5 mg tablet 5 mg PO DAILY #90 tabs 01/31/24 06/22/24 Unknown Rx potassium chloride 8 mEq See Rx Instructions .Route 01/31/24 06/22/24 Unknown Rx capsule,extended release .COMPLEX #90 caps estradiol 1 mg tablet See Rx Instructions .Route 03/06/24 06/22/24 Unknown Rx .COMPLEX #135 tabs pantoprazole 40 mg tablet,delayed See Rx Instructions .Route 04/04/24 06/22/24 Unknown Rx release .COMPLEX #90 tabs baclofen 10 mg tablet See Rx Instructions .Route 04/16/24 06/22/24 Unknown Rx .COMPLEX #90 tabs lamotrigine 200 mg tablet See Rx Instructions .Route 04/16/24 06/22/24 Unknown Rx .COMPLEX #180 tabs albuterol sulfate 90 mcg/actuation See Rx Instructions .Route 04/27/24 06/22/24 Unknown Rx aerosol inhaler .COMPLEX #54 grams diltiazem HCl 180 mg 180 mg PO DAILY #30 caps 05/09/24 06/22/24 Unknown Rx capsule,extended release 24 hr atorvastatin 40 mg tablet See Rx Instructions .Route 06/18/24 06/22/24 Unknown Rx .COMPLEX #90 tabs diclofenac sodium 75 mg 75 mg PO Q12H PRN pain #20 tabs 06/19/24 06/22/24 Unknown Rx tablet,delayed release albuterol sulfate 2.5 mg/3 mL 2.5 mg (3 mL) inhalation Q8H PRN 06/22/24 06/22/24 Unknown Rx (0.083 %) solution for nebulization bronchospasm 10 days #90 mL azithromycin 250 mg tablet See Rx Instructions PO .COMPLEX #6 06/22/24 06/22/24 Unknown Rx tabs Allergies Allergy/AdvReac Type Severity Reaction Status Date / Time codeine Allergy Severe seizures Verified 06/22/24 11:51 molnupiravir Allergy Intermediate high blood Verified 06/22/24 11:51 pressure and shaking monosodium glutamate Allergy ADR-Headach Verified 06/22/24 11:51 e aspirin AdvReac ADR-Vomitin Verified 06/22/24 11:51 g guaifenesin (From Mucinex) AdvReac ADR-Vomitin Verified 06/22/24 11:51 g prednisolone AdvReac ADR-Vomitin Verified 06/22/24 11:51 g propranolol AdvReac sleepiness Verified 06/22/24 11:51 Sulfa (Sulfonamide AdvReac ADR-Vomitin Verified 06/22/24 11:51 Antibiotics) g PFSH Acute PFSH: Medical History History of nonmelanoma skin cancer No pertinent past medical history neghx:dm,thyroid PCP: Sumanth Pettit Abuse of smoked substance Essential hypertension Mixed hyperlipidemia COPD, mild Chronic back pain Arrhythmia, atrial RLS (restless legs syndrome) Obstructive sleep apnea Enrolled in chronic care management Complex partial epilepsy Chronic migraine without aura, intractable, with status migrainosus SVT (supraventricular tachycardia) Surgical History History of tonsillectomy and adenoidectomy Hx of hysterectomy (~1998) POLLY---one ovary spared; performed by Sanna Hx of knee surgery (~02/2016) right knee History of radiofrequency ablation procedure for cardiac arrhythmia (~2017) Family History Mother Breast cancer dx--45 Stroke Hypertension Thyroid disease Family/Other Breast cancer Breast cancer---- Maternal aunt x 5 Father Hypertension Denies family history of Colon cancer Ovarian cancer Diabetes Uterine cancer Social History Smoking and tobacco/nicotine status: current every day tobacco/nicotine user cigarettes Packs smoked per day: 0.5 Alcohol intake: never Substance/Drug Use: never Adopted: No Caregiver/support person: No Lives independently: No Household members: spouse service: No Do you think of yourself as: Straight/Heterosexual Current gender identity: Female Vitals/I&O/Wt Last Vital Signs Temp 99.3 F 06/24/24 19:28 Pulse 88 06/24/24 22:03 Resp 18 06/24/24 22:03 BP 127/59 06/24/24 22:03 Pulse Ox 96 06/24/24 21:44 O2 Del Method Nasal Cannula 06/24/24 21:44 O2 Flow Rate 5 06/24/24 21:44 Weight last 48 hrs Weight 65.317 kg Physical Exam Narrative: Malnourished Mild wheezing Currently on 4.5 L No active chest pain or shortness of breath Bilateral breath sounds without significant rhonchi crackles or significant wheezing Able to finish sentences without getting short of breath S1, S2 Abdomen soft No sign of fluid overload Nonfocal neuroexam GCS 15 Pleasant and cooperative Data 06/24/24 20:42 06/24/24 20:42 Micro: Microbiology 06/24/24 20:42 Blood Culture - Preliminary Blood SPECIMEN COLLECTED 06/24/24 20:42 Blood Culture - Preliminary Blood SPECIMEN COLLECTED A&P Assessment and plan (1) Abuse of smoked substance: (2) Essential hypertension: (3) SVT (supraventricular tachycardia): (4) Head ache: Qualifiers: Headache type: cluster Headache chronicity pattern: chronic headache Intractability: not intractable Qualified Code(s): G44.029 - Chronic cluster headache, not intractable (5) 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: (6) Obstructive sleep apnea: (7) RSV (acute bronchiolitis due to respiratory syncytial virus): (8) COPD exacerbation: Plan Acute hypoxia Acute COPD exacerbation RSV Active smoking Smokes 1 pack/day Start IV steroids DuoNeb treatment Check procalcitonin Low-grade fever at home Currently afebrile without significant hemodynamic instability Anticipating discharge in next 24 to 48 hours after home oxygen evaluation in the morning Active smoking, patient only uses albuterol at home Will need oxygen evaluation at the time of discharge will also need LAMA LABA ICS combination History of SVT and hypertension Continue AV ct blocking agent and antihypertensive regimen History of seizure: Continue Lamictal Full code Cardiac diet DVT prophylaxis: Lovenox PDMP PDMP Reviewed: Not Reviewed Attestations Medical Necessity Statement*: Anticipating discharge within 24 to 48 hours after evaluation of oxygen Diagnoses Abuse of smoked substance F18.10 Essential hypertension I10 SVT (supraventricular tachycardia) I47.1 Chronic cluster headache, not intractable G44.029 Headache type: cluster Headache chronicity pattern: chronic headache Intractability: not intractable 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 G40.219 Obstructive sleep apnea G47.33 RSV (acute bronchiolitis due to respiratory syncytial virus) J21.0 COPD exacerbation J44.1
--- NOTE | 2024-06-24 22:37 | ED_ITS ---
HPI - SOB/Dyspnea 2 General: Chief Complaint: Upper Respiratory Infection Stated Complaint: chills, weakness, sob, aches Time Seen by Provider: 06/24/24 20:13 History of Present Illness: HPI Narrative: This patient is a 64-year-old white female who presents to the emergency department with shortness of breath. Patient states she became ill about 3 days ago with cough and congestion. She was evaluated in the clinic and diagnosed with sinusitis and placed on antibiotics. Patient has become very short of breath. She is feeling achy all over and has developed fevers. Patient states she does not have a history of COPD however she is a long-term smoker. Related Data Home Medications ?Medication ?Instructions ?Recorded ?Confirmed tramadol 50 mg tablet 50 mg PO TID PRN Pain, Moder ate 04/27/22 06/22/24 clobetasol 0.05 % topical ointment 1 applic topical BI D PRN Itching 01/19/23 06/22/24 Previous Rx's ?Medication ?Instructions ?Recorded mupirocin 2 % topical ointment 1 applic topical BID #2 2 grams 12/29/21 tramadol 50 mg tablet 50 mg PO Q6H PRN pain #20 ta bs 01/20/23 gabapentin 300 mg capsule See Rx Instructions .Route 1 04/24/22 .COMPLEX #270 caps albuterol sulfate 90 mcg/actuation 2 inh inhalation Q4 H PRN shortness 12/24/23 aerosol inhaler of breath or wheezing #6.7 g greg furosemide 20 mg tablet 20 mg PO DAILY edema #90 tab s 01/31/24 lisinopril 5 mg tablet 5 mg PO DAILY #90 tabs 01/30 potassium chloride 8 mEq See Rx Instructions .Route 1 capsule,extended release .COMPLEX #90 caps estradiol 1 mg tablet See Rx Instructions .Route 1 05/06/23 .COMPLEX #135 tabs pantoprazole 40 mg tablet,delayed See Rx Instructions .Route 04/04/24 release .COMPLEX #90 tabs baclofen 10 mg tablet See Rx Instructions .Route 1 .COMPLEX #90 tabs lamotrigine 200 mg tablet See Rx Instructions .Route 1 .COMPLEX #180 tabs albuterol sulfate 90 mcg/actuation See Rx Instructions .Route 04/27/24 aerosol inhaler .COMPLEX #54 grams diltiazem HCl 180 mg 180 mg PO DAILY #30 caps capsule,extended release 24 hr atorvastatin 40 mg tablet See Rx Instructions .Route 0 06/18/24 .COMPLEX #90 tabs diclofenac sodium 75 mg 75 mg PO Q12H PRN pain #20 t abs 06/19/24 tablet,delayed release albuterol sulfate 2.5 mg/3 mL 2.5 mg (3 mL) inhalation Q8H PRN 06/22/24 (0.083 %) solution for nebulization bronchospasm 10 da ys #90 mL azithromycin 250 mg tablet See Rx Instructions PO .COM PLEX #6 06/22/24 tabs Allergies Allergy/AdvReac Type Severity Reaction Status Date / Time codeine Allergy Severe seizures Verified 06/22/24 11:51 [email or web address] Allergy Intermediate high blood Verified 06/22/24 11:51 pressure and shaking monosodium glutamate Allergy ADR-Headach Verified 06/22/24 11:51 e aspirin AdvReac ADR-Vomitin Verified 06/22/24 11:51 g guaifenesin (From Mucinex) AdvReac ADR-Vomitin Verified 06/22/24 11:51 g prednisolone AdvReac ADR-Vomitin Verified 06/22/24 11:51 g propranolol AdvReac sleepiness Verified 06/22/24 11:51 Sulfa (Sulfonamide AdvReac ADR-Vomitin Verified 06/22/24 11:51 Antibiotics) g Review of Systems 2 General: Reports: 10 or more systems reviewed and unremarkable except in HPI and below ENMT: Reports: nasal congestion Resp: Reports: dyspnea and non-productive cough PFSH ED 2 PFSH: Medical History History of nonmelanoma skin cancer No pertinent past medical history neghx:dm,thyroid PCP: Sumanth Pettit Abuse of smoked substance Essential hypertension Mixed hyperlipidemia COPD, mild Chronic back pain Arrhythmia, atrial RLS (restless legs syndrome) Obstructive sleep apnea Enrolled in chronic care management Complex partial epilepsy Chronic migraine without aura, intractable, with status migrainosus SVT (supraventricular tachycardia) Surgical History History of tonsillectomy and adenoidectomy Hx of hysterectomy (~1998) POLLY---one ovary spared; performed by Sanna Tate of knee surgery (~02/2016) right knee History of radiofrequency ablation procedure for cardiac arrhythmia (~2017) Family History Mother Breast cancer dx--45 Stroke Hypertension Thyroid disease Family/Other Breast cancer Breast cancer---- Maternal aunt x 5 Father Hypertension Denies family history of Colon cancer Ovarian cancer Diabetes Uterine cancer Social History Smoking and tobacco/nicotine status: current every day tobacco/nicotine user cigarettes Packs smoked per day: 0.5 Alcohol intake: never Substance/Drug Use: never Adopted: No Caregiver/support person: No Lives independently: No Household members: spouse service: No Do you think of yourself as: Straight/Heterosexual Current gender identity: Female Physical Exam 2 Const: COMMON NORMALS: no acute distress, patient oriented x3 and no limitations GENERAL APPEARANCE: cooperative and comfortable HENMT: COMMON NORMALS: normocephalic, atraumatic, Normal nasal mucous membranes and turbinates present, moist oral mucous membranes and oropharynx normal HEAD & SCALP: normal to inspection, normocephalic and atraumatic F TRISTIN & SINUS: normal facial exam NOSE: Normal nasal mucous membranes and turbinates present Eye: COMMON NORMALS: Equal, round and reactive pupils present, EOMs intact bilaterally and conjunctivae normal GENERAL EYE: appearance normal, both eyes and all related structures CONJUNCTIVA: Yes conjunctivae normal PUPIL: Yes Equal, round and reactive pupils present Neck/C-Spine: COMMON NORMALS: supple and no JVD Chest: COMMONS NORMALS: normal inspection of the chest Resp: COMMON NORMALS: normal respiratory effort AUSCULTATION: wheezes Cardio: COMMON NORMALS: no JVD, regular rate, regular rhythm, No gallops present (Cardio), No murmurs present (Cardio) and No rub (Cardio) RATE: r egular rate RHYTHM: regular rhythm GI: COMMON NORMALS: Normal to inspection, nondistended, normoactive bowel sounds present, Soft to palpation and non-tender AUSCULTATION: Yes normoactive bowel sounds PALPATION: Yes Soft to palpation : COMMON NORMALS: Yes no CVA tenderness BLADDER/KIDNEY EXAM: Yes no CVA tenderness Back/Pelvis: COMMON NORMALS: no CVA tenderness and thoracic and lumbar spine normal to inspection Extremity: COMMON NORMALS: normal to inspection Neuro: COMMON NORMALS: patient oriented x3 and CN's II-XII intact bilaterally Psych: COMMON NORMALS: mental status grossly normal, Normal thought process present and cooperative THOUGHT PROCESS: Normal thought process present Skin: COMMON NORMALS: no rashes or lesions noted, turgor normal and no jaundice GENERAL SKIN EXAM: no rashes or lesions noted and turgor normal Course 2 Vital Signs: Vital signs: Vital Signs Temperature 99.3 F 06/24/24 19:28 Pulse Rate 88 06/24/24 22:03 Respiratory Rate 18 06/24/24 22:03 Blood Pressure 127/59 06/24/24 22:03 Pulse Oximetry 96 06/24/24 21:44 Oxygen Delivery Me thod Nasal Cannula 06/24/24 21:44 Oxygen Flow Rate 5 06/24/24 21:44 MDM - SOB/Dyspnea Medical Decision Making Chest x-ray did not reveal any infiltrates. Is hyperinflated consistent with COPD. Influenza and COVID-negative. RSV positive. CBC and CMP normal. Patient was given a DuoNeb treatment and 125 mg of Solu-Medrol. When patient arrived she was satting 77% in triage. She was placed on 6 L of oxygen. After the breathing treatment steroid we took her off of the oxygen and she dropped down to 84%. She is not on home O2. She will need to be admitted. I discussed the case with Dr. Lindsay. He did accept the patient for admission. Patient will be transferred to the floor shortly. She is stable. Lab Data 06/24/24 20:42 06/24/24 20:42 Labs/Radiology: Radiology Impressions Chest X-Ray 06/24/24 20:04 IMPRESSION: Hyperinflation of the lung alvarado most consistent with COPD. Laboratory Results WBC 10.16 10^3/uL (3.29-11.43) 06/24/24 20:42 RBC 4.53 10^6/uL (3.85-5.65) 06/24/24 20:42 Hgb 13.30 g/dL (11.27-16.99) 06/24/24 20:42 Hct 44.2 % (36-47) 06/24/24 20:42 MCV 97.6 fl (85-98) 06/24/24 20:42 MCH 29.4 pg (27-33) 06/24/24 20:42 MCHC 30.1 g/dL (30-55) 06/24/24 20:42 RDW 15.6 % (12.1-15.1) H 06/24/24 20:42 Plt Count 249 10^3/cmm (157-399) 06/24/24 20:42 MPV 9.2 fL (7.4-10.4) 06/24/24 20:42 Neut % (Auto) 83.2 % 06/24/24 20:42 Lymph % (Auto) 8.1 % 06/24/24 20:42 Leon % (Auto) 7.5 % 06/24/24 20:42 Eos % (Auto) 0.2 % 06/24/24 20:42 Baso % (Auto) 0.6 % 06/24/24 20:42 Neut # (Auto) 8.46 10^3/uL (1.8-7.7) H 06/24/24 20:42 Lymph # (Auto) 0.8 10^3/uL (0.8-4.8) 06/24/24 20:42 Leon # (Auto) 0.8 10^3/uL (0.2-0.9) 06/24/24 20:42 Eos # (Auto) 0.0 10^3/uL (0.0-0.8) 06/24/24 20:42 Baso # (Auto) 0.1 10^3/uL (0.0-0.1) 06/24/24 20:42 Nucleated RBC % (auto) 0 % 06/24/24 20: Nucleated RBCs # 0.0 /100WBC 06/24/24 20:42 Sodium 135 mmol/L (136-145) L 06/24/24 20:42 Potassium 4.3 mmol/L (3.5-5.1) 06/24/24 20:42 Chloride 95 mmol/L (98-107) L 06/24/24 20:42 Carbon Dioxide 24 mmol/L (22-29) 06/24/24 20:42 Anion Gap 20.3 (5-19) H 06/24/24 20:42 BUN 20 mg/dL (8-23) 06/24/24 20:42 Creatinine 0.8 mg/dL (0.5-0.9) 06/24/24 20:42 GFR Calculation 72.4 mL/min (90-130) L 06/24/24 20:42 Glucose 101 mg/dL (65-115) 06/24/24 20:42 Calculated Osmolality 283 mOsm/kg (285-295) L 06/24/24 20:42 Lactic Acid 1.3 mmol/L (0.5-2.2) 06/24/24 20:42 Calcium 9.9 mg/dL (8.5-10.5) 06/24/24 20:42 Total Bilirubin 0.4 mg/dL (0.15-1.2) 06/24/24 20:42 AST 24 U/L (0-32) 06/24/24 20:42 ALT 12 U/L (0-33) 06/24/24 20:42 Alkaline Phosphatase 96 U/L (35-105) 06/24/24 20:42 Total Protein 8.4 g/dL (6.6-8.7) 06/24/24 20:42 Albumin 4.1 g/dL (3.5-5.2) 06/24/24 20:42 Globulin 4.3 g/dL (1.3-4.6) 06/24/24 20:42 Influenza A (PCR) Negative (Negative) 06/24/24 19:42 Influenza Type B (PCR) Negative (Negative) 06/24/24 19:42 RSV (PCR) Positive (Negative) A 06/24/24 19:42 SARS-CoV-2 (PCR) Negative (Negative) 06/24/24 19:42 All radiology interpretation(s) finalized by discharge Discharge Plan Discharge Condition: Stable Prescriptions: No Action tramadol 50 mg tablet 50 mg PO TID PRN (Reason: Pain, Moderate) diltiazem HCl 180 mg capsule,extended release 24hr 180 mg PO DAILY Qty: 30 3RF albuterol sulfate 90 mcg/actuation HFA aerosol inhaler 2 inh inhalation Q4H PRN (Reason: shortness of breath or wheezing) Qty: 6.7 0RF albuterol sulfate 2.5 mg /3 mL (0.083 %) solution for nebulization 2.5 mg inhalation Q8H PRN (Reason: bronchospasm) 10 Days Qty: 90 0RF azithromycin 250 mg tablet See Rx Instructions PO .COMPLEX Qty: 6 0RF Rx Instructions: take 500 mg today (day 1), then 250 mg for 4 days (days 2-5) PO mupirocin 2 % ointment 1 applic topical BID Qty: 22 1RF Rx Instructions: Apply to affected area(s) until healed gabapentin 300 mg capsule See Rx Instructions .ROUTE .COMPLEX Qty: 270 10RF Dose Instruction: TAKE 1 CAPSULE THREE TIMES DAILY Rx Instructions: TAKE 1 CAPSULE THREE TIMES DAILY furosemide 20 mg tablet 20 mg PO DAILY Qty: 90 3RF lisinopril 5 mg tablet 5 mg PO DAILY Qty: 90 6RF potassium chloride 8 mEq capsule, extended release See Rx Instructions .ROUTE .COMPLEX Qty: 90 3RF Dose Instruction: TAKE 1 CAPSULE EVERY DAY (TAKE WITH FUROSEMIDE) Rx Instructions: TAKE 1 CAPSULE EVERY DAY (TAKE WITH FUROSEMIDE) estradiol 1 mg tablet See Rx Instructions .ROUTE .COMPLEX Qty: 135 3RF Dose Instruction: TAKE 1 AND 1/2 TABLETS EVERY DAY Rx Instructions: TAKE 1 AND 1/2 TABLETS EVERY DAY pantoprazole 40 mg tablet,delayed release (DR/EC) See Rx Instructions .ROUTE .COMPLEX Qty: 90 3RF Dose Instruction: TAKE 1 TABLET EVERY DAY Rx Instructions: TAKE 1 TABLET EVERY DAY baclofen 10 mg tablet See Rx Instructions .ROUTE .COMPLEX Qty: 90 3RF Dose Instruction: TAKE 1 TABLET EVERY DAY NEEDED FOR MUSCLE SPASM(S) Rx Instructions: TAKE 1 TABLET EVERY DAY NEEDED FOR MUSCLE SPASM(S) lamotrigine 200 mg tablet See Rx Instructions .ROUTE .COMPLEX Qty: 180 3RF Dose Instruction: TAKE 1 TABLET TWICE DAILY Rx Instructions: TAKE 1 TABLET TWICE DAILY albuterol sulfate 90 mcg/actuation HFA aerosol inhaler See Rx Instructions .ROUTE .COMPLEX Qty: 54 0RF Dose Instruction: INHALE 2 PUFFS BY MOUTH EVERY 6 HOURS NEEDED FOR BRONCHOSPASM Rx Instructions: INHALE 2 PUFFS BY MOUTH EVERY 6 HOURS NEEDED FOR BRONCHOSPASM atorvastatin 40 mg tablet See Rx Instructions .ROUTE .COMPLEX Qty: 90 3RF Dose Instruction: TAKE 1 TABLET EVERY DAY Rx Instructions: TAKE 1 TABLET EVERY DAY diclofenac sodium 75 mg tablet,delayed release (DR/EC) 75 mg PO Q12H PRN (Reason: pain) Qty: 20 0RF clobetasol 0.05 % ointment 1 applic topical BID PRN (Reason: Itching) Rx Instructions: Apply to affected area no more than 2 weeks per month, not for face or skin folds. tramadol 50 mg tablet 50 mg PO Q6H PRN (Reason: pain) Qty: 20 0RF Referrals: Roberto Pettit FNP [Primary Care Provider] - Print Language: Upper Sorbian Coding Level of Care Code ED Kettle Operator Head for Tammig Chantel
--- NOTE | 2024-06-24 23:21 | PC.NURSE ---
Patient refused hospital gown.
[2024-06-25] VITALS (11 sets, daily range): BP systolic 99–124; BP diastolic 61–68; PULSE 52–82; RESP 14–22; TEMP 36.3–36.5; O2SAT 89–97
[2024-06-25] MEDS: lisinopril 5 mg Tablet PO ×2 (00:06→20:52)
[2024-06-25] MEDS: lamoTRIgine 100 mg Tablet 200 MG PO ×3 (00:06→20:52)
[2024-06-25] MEDS: baclofen 10 mg Tablet PO ×2 (00:06→20:56)
[2024-06-25] MEDS: enoxaparin 40 mg/0.4 mL Syringe SUBCUT ×2 (00:07→21:56)
[2024-06-25] MEDS: pantoprazole DR 40 mg Tablet PO ×2 (00:07→09:17)
[2024-06-25] MEDS: TRAMadol 50 mg Tablet PO ×4 (00:09→22:04)
[2024-06-25] MEDS: ipratropium-albuterol 3 mL Neb INHALATION ×4 (01:09→21:31)
[2024-06-25] MEDS: acetaminophen 500 mg Tablet PO ×3 (02:47→20:55)
[2024-06-25 03:01] LABS: Basophils % 0.5 %; Hematocrit 39.1 % (36-47); Lymphocytes # 0.4 10^3/uL (0.8-4.8); Lymphocytes % 5.3 %; Mean Corpuscular HGB Conc 30.4 g/dL (30-55); Mean Corpuscular Hemoglobin 28.8 pg (27-33); Mean Corpuscular Volume 94.7 fl (85-98); Mean Platelet Volume 9.4 fL (7.4-10.4); Monocytes # 0.1 10^3/uL (0.2-0.9); Monocytes % 0.6 %; Neutrophils # 7.54 10^3/uL (1.8-7.7); Neutrophils % 93.1 %; Nucleated Red Blood Cells % 0 %; Platelet Count 221 10^3/cmm (157-399); Red Blood Count 4.13 10^6/uL (3.85-5.65); Red Cell Distribution Width 15.4 % (12.1-15.1)
[2024-06-25 03:18] LABS: Anion Gap 16.1 (5-19); Blood Urea Nitrogen 20 mg/dL (8-23); C Reactive Protein 128.7 mg/L (0.0-4.9); Calcium 9.2 mg/dL (8.5-10.5); Carbon Dioxide 25 mmol/L (22-29); Chloride 96 mmol/L (98-107); Creatinine Clr Calc Pharmacy 62.0493; Glomerular Filtration Rate 72.4 mL/min (90-130); Glucose 198 mg/dL (65-115); Osmolality Calculated 284 mOsm/kg (285-295); Potassium 4.1 mmol/L (3.5-5.1); Sodium 133 mmol/L (136-145)
--- NOTE | 2024-06-25 09:06 | PC.CHAP ---
Pastoral Care Encounter/Spiritual Assessment Type of Contact [] Declined customer service specialist visit [] Patient/Family/Request visit [] Outpatient visit [] Follow-up visit [] Physician referral [] Code/Alert [x] Routine visit [] Staff referral [] Actively dying [] Patient sleeping [] Family support [] [] Out of room [] Palliative care [] [] Receiving care in room [] Pre-surgical visit [] Trauma [] Long length of stay [] ICU visit [] Other: Relational/Emotional Strength [] Patient feels connected with others/family/visitors/staff [] Distress [] Loneliness/isolation [] Abandonment Spirituality of Patient [] Person of Riana [] Attends Restorationism of their Riana [] Believes in Prayer [] Reads Bible or Christianity materials [] There are Spiritual issues to be addressed Tire Trimmer Hand Interventions [x] Prayer [] Active listening [] Non-anxious presence [] Spiritual/emotional support [] Crisis/trauma care [] Spiritual counseling [] Bereavement support [] Provided bereavement packet [] Provided Bible/devotional materials [] Provided toy/stuffed animal, coloring book to patient or family member [] Provided Communion [] Anointing/[place] [] Salvation [] Completed spiritual assessment [] Other: Impact on Illness or Injury [] Angry [] Fearful [] Anxious [] Often cries [] Exhaustion [] Unable to work [] Unable to attend congregation [] Unable to walk/stand [] Unable to read [] Unable to drive [] Unable to eat/drink [] Unable to sleep [] Unable to be with family [] Patient intubated [] Other: Summary precaution Time spent with patient
[2024-06-25] MEDS: methylPREDNISolone sod succ 40 mg/mL INJ 30 MG IVP (09:15)
[2024-06-25] MEDS: dilTIAZem ER (24HR) 180 mg Capsule PO (09:17)
--- NOTE | 2024-06-25 12:26 | P.PN_ITS ---
Subjective 2 Subjective: Patient was seen this morning, she continues to complain of shortness of breath, wheezing, reports nonproductive cough, does report smoking history up to a pack a day Vitals/I&O/Wt Last Vital Signs Temp 97.7 F 06/25/24 11:15 Pulse 52 L 06/25/24 11:15 Resp 18 06/25/24 11:15 BP 104/62 06/25/24 11:15 Pulse Ox 94 06/25/24 11:15 O2 Del Method Nasal Cannula 06/25/24 11:15 O2 Flow Rate 4 06/25/24 09:01 06/24/24 06/25/24 06/25/24 22:59 06:59 14:59 Intake Total 120 / 120 Output Total 325 / 325 Balance -325 / -325 120 / 120 Weight last 48 hrs Weight 64.274 kg Weight 64.818 kg Weight 65.317 kg Physical Exam 2 Const: COMMON NORMALS: no acute distress and patient oriented x3 Resp: COMMON NORMALS: normal respiratory effort, No retractions and No use of accessory muscles AUSCULTATION: wheezes Cardio: COMMON NORMALS: regular rate, regular rhythm, S1 normal heart sound present and S2 normal heart sound present RATE: regular rate RHYTHM: r egular rhythm HEART SOUNDS: S1 normal heart sound present and S2 normal heart sound present GI: COMMON NORMALS: Normal to inspection, nondistended, normoactive bowel sounds present and non-tender Extremity: COMMON NORMALS: no pedal edema Neuro: COMMON NORMALS: patient oriented x3 Psych: COMMON NORMALS: mental status grossly normal Data 06/25/24 02:43 06/25/24 02:43 Micro: Microbiology 06/24/24 20:42 Blood Culture - Preliminary Blood SPECIMEN COLLECTED 06/24/24 20:42 Blood Culture - Preliminary Blood SPECIMEN COLLECTED A&P Assessment and plan (1) Abuse of smoked substance: (2) Essential hypertension: (3) SVT (supraventricular tachycardia): (4) Head ache: Qualifiers: Headache type: cluster Headache chronicity pattern: chronic headache I ntractability: not intractable Qualified Code(s): G44.029 - Chronic cluster headache, not intractable (5) 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: (6) Obstructive sleep apnea: (7) RSV (acute bronchiolitis due to respiratory syncytial virus): (8) COPD exacerbation: (9) Secondary bacterial pneumonia: (10) Acute hypoxic respiratory failure: Plan Acute hypoxic respiratory failure requiring up to 5 L Acute COPD exacerbation RSV bronchitis Concerns for second bacterial pneumonia, given elevated CRP, complaints of fever at home Plan Monitor respiratory status closely 40 mg Solu-Medrol IV every 8 hours Add Rocephin Add azithromycin Sputum culture Blood culture DuoNeb Budesonide Smoking history, smoking cessation counseling History of SVT and hypertension Continue home medication History of seizure: Continue Lamictal Full code Cardiac diet DVT prophylaxis: Lovenox Plan for today increase Solu-Medrol to 40 mg IV every 8 hours, add Rocephin, Zithromycin, sputum cultures monitor respiratory status closely PDMP PDMP Reviewed: Not Reviewed Attestations 2 Medical Necessity Statement*: Patient requires hospitalization for acute hypoxic respiratory failure secondary COPD, RSV, secondary bacterial pneumonia requiring up to 5 L required IV antibiotics IV steroids Diagnoses Abuse of smoked substance F18.10 Essential hypertension I10 SVT (supraventricular tachycardia) I47.1 Chronic cluster headache, not intractable G44.029 Headache type: cluster Headache chronicity pattern: chronic headache Intractability: not intractable 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
[2024-06-25] MEDS: AZITHROMYCIN ADD-Vantage 500 MG in 0.9% NaCl ADD-Vantage 250 ML 250 MG IV (12:47)
[2024-06-25] MEDS: cefTRIAXone 1,000 mg SDV 1000 MG IVP (12:47)
[2024-06-25] MEDS: budesonide 0.5 mg/2 mL Neb INHALATION (13:18)
[2024-06-25] MEDS: methylPREDNISolone sod succ 40 mg/mL INJ IVP (16:41)
[2024-06-25] MEDS: gabapentin 300 mg Capsule PO (20:53)
[2024-06-26] VITALS (13 sets, daily range): BP systolic 115–134; BP diastolic 53–66; PULSE 61–82; RESP 16–20; TEMP 36.3–36.6; O2SAT 90–97
[2024-06-26] MEDS: methylPREDNISolone sod succ 40 mg/mL INJ IVP ×3 (01:00→17:41)
[2024-06-26] MEDS: ipratropium-albuterol 3 mL Neb INHALATION ×4 (02:11→22:37)
[2024-06-26] MEDS: acetaminophen 500 mg Tablet PO ×3 (04:33→20:19)
[2024-06-26] MEDS: budesonide 0.5 mg/2 mL Neb INHALATION (07:43)
[2024-06-26] MEDS: pantoprazole DR 40 mg Tablet PO (08:19)
[2024-06-26] MEDS: lamoTRIgine 100 mg Tablet 200 MG PO ×2 (08:19→17:41)
[2024-06-26] MEDS: TRAMadol 50 mg Tablet PO (08:19)
[2024-06-26] MEDS: dilTIAZem ER (24HR) 180 mg Capsule PO (08:20)
[2024-06-26] MEDS: AZITHROMYCIN ADD-Vantage 500 MG in 0.9% NaCl ADD-Vantage 250 ML 250 MG IV (11:59)
[2024-06-26] MEDS: cefTRIAXone 1,000 mg SDV 1000 MG IVP (11:59)
[2024-06-26] MEDS: saline nasal spray 44mL Btl 1 SPRAY NASAL (13:42)
[2024-06-26] MEDS: benzonatate 100 mg Capsule PO (14:35)
--- NOTE | 2024-06-26 19:06 | PM.PN ---
Subjective Subjective: She reports she is still feeling quite dyspneic, she is hacking cough, and does feel that she has congestion and phlegm dispelling up in her chest which she is having hard time bringing up. Vitals/I&O/Wt Last Vital Signs Temp 97.4 F L 06/26/24 16:05 Pulse 62 06/26/24 16:05 Resp 16 06/26/24 16:05 BP 127/53 06/26/24 16:05 Pulse Ox 96 06/26/24 16:05 O2 Del Method Nasal Cannula 06/26/24 16:05 O2 Flow Rate 4 06/26/24 13:42 06/26/24 06/26/24 06/26/24 06:59 14:59 22:59 Intake Total 0 / 1970 1090 / 1090 720 / 1810 Output Total 500 / 500 Balance -500 / 1470 1090 / 1090 720 / 1810 Weight last 48 hrs Weight 64.728 kg Weight 64.274 kg Weight 64.818 kg Weight 65.317 kg Physical Exam Narrative: Accompanied by her family. Const: COMMON NORMALS: patient oriented x3 and alert GENERAL APPEARANCE: cooperative ORIENTATION/CONSCIOUSNESS: Yes awake HENMT: COMMON NORMALS: oropharynx normal Neck/C-Spine: COMMON NORMALS: no JVD Resp: AUSCULTATION: wheezes and diminished lung sounds Cardio: COMMON NORMALS: no JVD, regular rhythm, S1 normal heart sound present, S2 normal heart sound present and No murmurs present (Cardio) RHYTHM: regular rhythm HEART SOUNDS: S1 normal heart sound present and S2 normal heart sound present GI: COMMON NORMALS: Normal to inspection, nondistended, normoactive bowel sounds present, Soft to palpation and non-tender PALPATION: Yes Soft to palpation Extremity: COMMON NORMALS: no joint enlargement and no pedal edema Neuro: COMMON NORMALS: patient oriented x3 and moves all extremities SENSORIUM/ORIENTATION: Yes alert Skin: COMMON NORMALS: no rashes or lesions noted GENERAL SKIN EXAM: no rashes or lesions noted Data 06/25/24 02:43 06/25/24 02:43 Micro: Microbiology 06/24/24 20:42 Blood Culture - Preliminary Blood NEGATIVE TO DATE 06/24/24 20:42 Blood Culture - Preliminary Blood NEGATIVE TO DATE A&P Assessment and plan (1) Abuse of smoked substance: (2) Essential hypertension: (3) SVT (supraventricular tachycardia): (4) Head ache: Qualifiers: Headache type: cluster Headache chronicity pattern: chronic headache Intractability: not intractable Qualified Code(s): G44.029 - Chronic cluster headache, not intractable (5) 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 Continue with IV Solu-Medrol, monitor for risk of uremia, encephalopathy, gastritis, hyperglycemia, hypertension, continue empiric antibiotic coverage with ceftriaxone. Will stop azithromycin. Request sputum culture. Added expectorant assist with flutter valve. Allergy to Mucinex. Continue scheduled and added as needed breathing treatments. Tessalon pearls. Repeat CBC. Reviewed blood culture, so far negative, follow-up. Discussed with nursing, respiratory therapy. 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 Likely will need oxygen at discharge. Smoking history, smoking cessation counseling. Add nicotine replacement as needed. History of SVT and hypertension Continue home medication History of seizure: Continue Lamictal Full code Cardiac diet DVT prophylaxis: Lovenox PDMP PDMP Reviewed: Not Reviewed Attestations Medical Necessity Statement*: Continue hospitalization for assessment management of acute respiratory failure with hypoxia, new oxygen requirement 4 L, persistent dyspnea, with severe exacerbation of COPD, RSV infection, lady with active smoking. and High MDM includes amount and/or complexity of data reviewed/ordered [ resulted lab(s)/test(s), ordered lab(s)/test(s) and other healthcare professional discussion] and described risk of complication, morbidity or mortality of management as documented Diagnoses Abuse of smoked substance F18.10 Essential hypertension I10 SVT (supraventricular tachycardia) I47.1 Chronic cluster headache, not intractable G44.029 Headache type: cluster Headache chronicity pattern: chronic headache Intractability: not intractable 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
[2024-06-26] MEDS: lactulose oral liq 20 gm/30 mL UDC PO (20:14)
[2024-06-26] MEDS: lisinopril 5 mg Tablet PO (20:14)
[2024-06-26] MEDS: gabapentin 300 mg Capsule PO (20:14)
[2024-06-26] MEDS: nicotine 14 mg Patch 1 PATCH TRANSDERMA (20:14)
[2024-06-26] MEDS: baclofen 10 mg Tablet PO (20:19)
[2024-06-26] MEDS: enoxaparin 40 mg/0.4 mL Syringe SUBCUT (22:31)
[2024-06-27] VITALS (12 sets, daily range): BP systolic 110–135; BP diastolic 60–72; PULSE 60–89; RESP 16–20; TEMP 36.3–37; O2SAT 85–99
[2024-06-27] MEDS: methylPREDNISolone sod succ 40 mg/mL INJ IVP ×3 (01:03→16:37)
[2024-06-27] MEDS: TRAMadol 50 mg Tablet PO ×3 (01:32→23:06)
[2024-06-27] MEDS: ipratropium-albuterol 3 mL Neb INHALATION ×3 (03:43→21:40)
[2024-06-27 05:27] LABS: Basophils % 0.1 %; Hematocrit 39.6 % (36-47); Lymphocytes # 0.9 10^3/uL (0.8-4.8); Lymphocytes % 8.3 %; Mean Corpuscular HGB Conc 29.5 g/dL (30-55); Mean Corpuscular Hemoglobin 28.9 pg (27-33); Mean Corpuscular Volume 97.8 fl (85-98); Mean Platelet Volume 9.3 fL (7.4-10.4); Monocytes # 0.3 10^3/uL (0.2-0.9); Monocytes % 2.5 %; Neutrophils # 9.06 10^3/uL (1.8-7.7); Neutrophils % 88.5 %; Nucleated Red Blood Cells % 0 %; Platelet Count 238 10^3/cmm (157-399); Red Blood Count 4.05 10^6/uL (3.85-5.65); Red Cell Distribution Width 14.8 % (12.1-15.1); White Blood Count 10.24 10^3/uL (3.29-11.43)
[2024-06-27 05:45] LABS: Anion Gap 12.1 (5-19); Blood Urea Nitrogen 18 mg/dL (8-23); Calcium 9.1 mg/dL (8.5-10.5); Carbon Dioxide 30 mmol/L (22-29); Chloride 99 mmol/L (98-107); Creatinine Clr Calc Pharmacy 101.6213; Glomerular Filtration Rate 124.6 mL/min (90-130); Glucose 105 mg/dL (65-115); Osmolality Calculated 286 mOsm/kg (285-295); Potassium 4.1 mmol/L (3.5-5.1); Sodium 137 mmol/L (136-145)
[2024-06-27] MEDS: budesonide 0.5 mg/2 mL Neb INHALATION (09:05)
[2024-06-27] MEDS: pantoprazole DR 40 mg Tablet PO (09:24)
[2024-06-27] MEDS: lamoTRIgine 100 mg Tablet 200 MG PO ×2 (09:24→17:46)
[2024-06-27] MEDS: benzonatate 100 mg Capsule PO ×2 (09:24→16:36)
[2024-06-27] MEDS: dilTIAZem ER (24HR) 180 mg Capsule PO (09:25)
[2024-06-27] MEDS: nicotine 14 mg Patch 1 PATCH TRANSDERMA (09:25)
--- NOTE | 2024-06-27 11:19 | CT_ITS ---
WS: [id number] CTA OF THE CHEST WITH PULMONARY EMBOLISM PROTOCOL TECHNIQUE: High-resolution contrast enhanced CTA of the chest with coronal and sagittal reformatted images with pulmonary embolism protocol. MIP images are also reviewed. CLINICAL INFORMATION: hypoxia, sob COMPARISON: None. DLP: 339.[address] scans at [facility] use at least one of these dose optimization techniques: automated exposure control; mA and/or kV adjustment per patient size (includes targeted exams where dose is matched to clinical indication); or iterative reconstruction. FINDINGS: Proximal main pulmonary arteries are normal. Adrenal glands are normal. Small esophageal hiatal hernia. Fatty atrophy of the pancreas. Mild chronic emphysematous changes. No focal pneumonia or pleural fluid. Opacities in the RIGHT middle lobe and RIGHT lower lobe likely inflammatory. Mild thoracic curve. Mild thoracic kyphosis. CT/CT angio chest PE protcl [id number] IMPRESSION: No evidence of pulmonary embolus
[2024-06-27] MEDS: cefTRIAXone 1,000 mg SDV 1000 MG IVP (11:58)
[2024-06-27] MEDS: acetaminophen 500 mg Tablet PO ×3 (12:09→21:38)
[2024-06-27] MEDS: iohexol 350 mg/mL 500 mL Btl (per mL) IV (14:07)
--- NOTE | 2024-06-27 14:16 | P.PN_ITS ---
Subjective 2 Subjective: Patient was seen this morning, she is alert x 3, following all commands, sitting up beside the bed continue to clean shortness of breath, shortness of breath with exertion, spoke to respiratory therapy patient's O2 sats dropped into the 80s upon exertion Vitals/I&O/Wt Last Vital Signs Temp 97.5 F L 06/27/24 11:53 Pulse 68 06/27/24 11:53 Resp 17 06/27/24 11:53 BP 110/63 06/27/24 11:53 Pulse Ox 96 06/27/24 11:53 O2 Del Method Nasal Cannula 06/27/24 11:53 O2 Flow Rate 4.5 06/27/24 09:14 06/26/24 06/27/24 06/27/24 22:59 06:59 14:59 Intake Total 1440 / 2530 1040 / 1040 Output Total 400 / 400 Balance 1440 / 2530 -400 / 2130 1040 / 1040 Weight last 48 hrs Weight 68.039 kg Weight 64.728 kg Physical Exam 2 Const: COMMON NORMALS: no acute distress and patient oriented x3 Resp: COMMON NORMALS: normal respiratory effort, No retractions and No use of accessory muscles AUSCULTATION: crackles and wheezes Cardio: COMMON NORMALS: regular rate, regular rhythm, S1 normal heart sound present and S2 normal heart sound present RATE: regular rate RHYTHM: r egular rhythm HEART SOUNDS: S1 normal heart sound present and S2 normal heart sound present GI: COMMON NORMALS: Normal to inspection, nondistended, normoactive bowel sounds present and non-tender Extremity: COMMON NORMALS: no pedal edema Neuro: COMMON NORMALS: patient oriented x3 Psych: COMMON NORMALS: mental status grossly normal Data 06/27/24 05:15 06/27/24 05:15 A&P Assessment and plan (1) Abuse of smoked substance: (2) Essential hypertension: (3) SVT (supraventricular tachycardia): (4) Head ache: Qualifiers: Headache type: cluster Headache chronicity pattern: chronic headache I ntractability: not intractable Qualified Code(s): G44.029 - Chronic cluster headache, not intractable (5) 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: (6) Obstructive sleep apnea: (7) RSV (acute bronchiolitis due to respiratory syncytial virus): (8) COPD exacerbation: (9) Secondary bacterial pneumonia: (10) Acute hypoxic respiratory failure: Plan Acute hypoxic respiratory failure requiring up to 5 L Acute COPD exacerbation RSV bronchitis Plan -Continue Solu-Medrol, no reported nausea vomiting -Continue Rocephin -Will order CT angiogram the chest today Smoking history, smoking cessation counseling History of SVT and hypertension Continue home medication History of seizure: Continue Lamictal Full code Cardiac diet DVT prophylaxis: Lovenox PDMP PDMP Reviewed: Not Reviewed Attestations 2 Medical Necessity Statement*: Patient requires hospitalization for acute hypoxic respiratory failure secondary to COPD, RSV Diagnoses Abuse of smoked substance F18.10 Essential hypertension I10 SVT (supraventricular tachycardia) I47.1 Chronic cluster headache, not intractable G44.029 Headache type: cluster Headache chronicity pattern: chronic headache Intractability: not intractable 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
[2024-06-27] MEDS: guaiFENesin 600 mg Tablet PO (17:45)
[2024-06-27] MEDS: baclofen 10 mg Tablet PO (21:38)
[2024-06-27] MEDS: lisinopril 5 mg Tablet PO (21:38)
[2024-06-27] MEDS: enoxaparin 40 mg/0.4 mL Syringe SUBCUT (21:38)
[2024-06-27] MEDS: gabapentin 300 mg Capsule PO (21:38)
[2024-06-28] VITALS (10 sets, daily range): BP systolic 106–149; BP diastolic 53–72; PULSE 67–78; RESP 16–20; TEMP 36.3–36.7; O2SAT 80–99
[2024-06-28] MEDS: methylPREDNISolone sod succ 40 mg/mL INJ IVP ×2 (01:06→08:58)
[2024-06-28] MEDS: ipratropium-albuterol 3 mL Neb INHALATION ×3 (02:53→14:54)
[2024-06-28] MEDS: acetaminophen 500 mg Tablet PO ×2 (04:03→09:02)
[2024-06-28 05:07] LABS: Basophils % 0.2 %; Lymphocytes # 1.7 10^3/uL (0.8-4.8); Lymphocytes % 15.3 %; Mean Corpuscular HGB Conc 30.2 g/dL (30-55); Mean Corpuscular Hemoglobin 29.5 pg (27-33); Mean Corpuscular Volume 97.4 fl (85-98); Mean Platelet Volume 9.4 fL (7.4-10.4); Monocytes # 0.3 10^3/uL (0.2-0.9); Nucleated Red Blood Cells % 0 %; Platelet Count 242 10^3/cmm (157-399); Red Blood Count 4.21 10^6/uL (3.85-5.65); Red Cell Distribution Width 14.9 % (12.1-15.1); White Blood Count 10.87 10^3/uL (3.29-11.43)
[2024-06-28 05:25] LABS: Alanine Aminotransferase 17 U/L (0-33); Albumin Level 3.8 g/dL (3.5-5.2); Alkaline Phosphatase 80 U/L (35-105); Anion Gap 11.2 (5-19); Aspartate Amino Transferase 20 U/L (0-32); Blood Urea Nitrogen 15 mg/dL (8-23); Calcium 9.1 mg/dL (8.5-10.5); Carbon Dioxide 34 mmol/L (22-29); Chloride 95 mmol/L (98-107); Creatinine Clr Calc Pharmacy 127.0266; Globulin 3.3 g/dL (1.3-4.6); Glomerular Filtration Rate 161.2 mL/min (90-130); Glucose 132 mg/dL (65-115); Osmolality Calculated 285 mOsm/kg (285-295); Potassium 4.2 mmol/L (3.5-5.1); Sodium 136 mmol/L (136-145); Total Bilirubin 0.2 mg/dL (0.15-1.2); Total Protein 7.1 g/dL (6.6-8.7)
[2024-06-28] MEDS: budesonide 0.5 mg/2 mL Neb INHALATION (08:20)
[2024-06-28] MEDS: lamoTRIgine 100 mg Tablet 200 MG PO (08:55)
[2024-06-28] MEDS: guaiFENesin 600 mg Tablet PO (08:56)
[2024-06-28] MEDS: benzonatate 100 mg Capsule PO (08:56)
[2024-06-28] MEDS: pantoprazole DR 40 mg Tablet PO (08:56)
[2024-06-28] MEDS: dilTIAZem ER (24HR) 180 mg Capsule PO (08:56)
[2024-06-28] MEDS: nicotine 14 mg Patch 1 PATCH TRANSDERMA (08:57)
[2024-06-28] MEDS: cefTRIAXone 1,000 mg SDV 1000 MG IVP (11:54)
--- NOTE | 2024-06-28 11:55 | P.DS_ITS ---
Discharge Providers Date of Admission: 06/24/24 21:51 Date of Discharge: June 28, 2024 Attending Provider at Admission: Angelo Lindsay MD Attending Provider at Discharge: Sherif Sparks MD Primary Care Provider: ILEANA Louis Diagnoses at Discharge Discharge Diagnosis (1) Abuse of smoked substance: Status: Acute (2) Essential hypertension: Status: Inactive (3) SVT (supraventricular tachycardia): Status: Inactive (4) Head ache: Status: Acute Qualifiers: Headache type: cluster Headache chronicity pattern: chronic headache Intractability: not intractable Qualified Code(s): G44.029 - Chronic cluster headache, not intractable (5) 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: Status: Inactive (6) Obstructive sleep apnea: Status: Inactive (7) RSV (acute bronchiolitis due to respiratory syncytial virus): Status: Acute (8) COPD exacerbation: Status: Acute (9) Secondary bacterial pneumonia: Status: Acute (10) Acute hypoxic respiratory failure: Status: Acute Reason for Visit Reason for Visit: chills, weakness, sob, aches Hospital Course Hospital Course This is a 64-year-old female history of COPD, history of smoking, who presents [facility] for shortness of breath Patient was admitted to [facility] for acute hypoxic respiratory f ailure secondary to COPD exacerbation, RSV bronchitis, received steroid therapy, with concerns for secondary bacterial infection was started on IV antibiotics, required oxygen therapy, overall clinically monitored. CT angiogram of the chest did not show any pulmonary embolism. Overall patient's condition slowly improved, will be discharged on 5 L at rest, prednisone burst, doxycycline, with a close follow-up with pulmonary as outpatient. For her history of smoking, I have an extensive discussion with her about smoking cessation counseling, morbidity and mortality associated, she voiced understanding, all questions answered, agreed to proceed Physical Exam Const: COMMON NORMALS: no acute distress and patient oriented x3 Resp: COMMON NORMALS: normal respiratory effort, No retractions, No use of accessory muscles and clear to auscultation bilaterally AUSCULTATION: clear to auscultation bilaterally Cardio: COMMON NORMALS: regular rate, regular rhythm, S1 normal heart sound present and S2 normal heart sound present RATE: regular rate RHYTHM: regular rhythm HEART SOUNDS: S1 normal heart sound present and S2 normal heart sound present GI: COMMON NORMALS: Normal to inspection, nondistended, normoactive bowel s ounds present and non-tender Extremity: COMMON NORMALS: no pedal edema Neuro: COMMON NORMALS: patient oriented x3 Psych: COMMON NORMALS: mental status grossly normal Discharge Data Studies Completed and Pending Completed Studies During Hospitalization Category Date Time Status CT angio chest PE protcl [id number] Routine Cat Scan 06/27/24 11:19 Completed XR chest 1V [id number] Stat Exams 06/24/24 20:04 Completed Pending at discharge Category Date Time Status Blood Culture Stat Lab 06/24/24 20:42 Results Complete Blood Count w/Auto AM LABS Lab 06/29/24 04:00 Ordered Complete Blood Count w/Auto AM LABS Lab 06/30/24 04:00 Ordered Comprehensive Metabolic Panel AM LABS Lab 06/29/24 04:00 Ordered Comprehensive Metabolic Panel AM LABS Lab 06/30/24 04:00 Ordered Sputum Culture and Gram Stain Routine Lab 06/26/24 19:10 Uncollected Radiology Impressions Chest X-Ray 06/24/24 20:04 IMPRESSION: Hyperinflation of the lung alvarado most consistent with COPD. Chest CTA 06/27/24 11:19 IMPRESSION: No evidence of pulmonary embolus Laboratory Results WBC 10.87 10^3/uL (3.29-11.43) 06/28/24 04:35 RBC 4.21 10^6/uL (3.85-5.65) 06/28/24 04:35 Hgb 12.40 g/dL (11.27-16.99) 06/28/24 04:35 Hct 41.0 % (36-47) 06/28/24 04:35 MCV 97.4 fl (85-98) 06/28/24 04:35 MCH 29.5 pg (27-33) 06/28/24 04:35 MCHC 30.2 g/dL (30-55) 06/28/24 04:35 RDW 14.9 % (12.1-15.1) 06/28/24 04:35 Plt Count 242 10^3/cmm (157-399) 06/28/24 04:35 MPV 9.4 fL (7.4-10.4) 06/28/24 04:35 Neut % (Auto) 80.0 % 06/28/24 04:35 Lymph % (Auto) 15.3 % 06/28/24 04:35 [place] % (Auto) 3.0 % 06/28/24 04:35 Eos % (Auto) 0.0 % 06/28/24 04:35 Baso % (Auto) 0.2 % 06/28/24 04:35 Neut # (Auto) 8.70 10^3/uL (1.8-7.7) H 06/28/24 04:35 Lymph # (Auto) 1.7 10^3/uL (0.8-4.8) 06/28/24 04:35 [place] # (Auto) 0.3 10^3/uL (0.2-0.9) 06/28/24 04:35 Eos # (Auto) 0.0 10^3/uL (0.0-0.8) 06/28/24 04:35 Baso # (Auto) 0.0 10^3/uL (0.0-0.1) 06/28/24 04:35 Nucleated RBC % (auto) 0 % 06/28/24 04:35 Nucleated RBCs # 0.0 /100WBC 06/28/24 04:35 Sodium 136 mmol/L (136-145) 06/28/24 04:35 Potassium 4.2 mmol/L (3.5-5.1) 06/28/24 04:35 Chloride 95 mmol/L (98-107) L 06/28/24 04:35 Carbon Dioxide 34 mmol/L (22-29) H 06/28/24 04:35 Anion Gap 11.2 (5-19) 06/28/24 04:35 BUN 15 mg/dL (8-23) 06/28/24 04:35 Creatinine 0.4 mg/dL (0.5-0.9) L 06/28/24 04:35 GFR Calculation 161.2 mL/min (90-130) H 06/28/24 04:35 Glucose 132 mg/dL (65-115) H 06/28/24 04:35 Calculated Osmolality 285 mOsm/kg (285-295) 06/28/24 04:35 Lactic Acid 1.3 mmol/L (0.5-2.2) 06/24/24 20:42 Calcium 9.1 mg/dL (8.5-10.5) 06/28/24 04:35 Magnesium 2.0 mg/dL (1.7-2.3) 06/25/24 02:43 Total Bilirubin 0.2 mg/dL (0.15-1.2) 06/28/24 04:35 AST 20 U/L (0-32) 06/28/24 04:35 ALT 17 U/L (0-33) 06/28/24 04:35 Alkaline Phosphatase 80 U/L (35-105) 06/28/24 04:35 C-Reactive Protein 128.7 mg/L (0.0-4.9) H 06/25/24 02:43 Total Protein 7.1 g/dL (6.6-8.7) 06/28/24 04:35 Albumin 3.8 g/dL (3.5-5.2) 06/28/24 04:35 Globulin 3.3 g/dL (1.3-4.6) 06/28/24 04:35 Procalcitonin 0.10 ng/mL (0-0.5) 06/24/24 20:42 Influenza A (PCR) Negative (Negative) 06/24/24 19:42 Influenza Type B (PCR) Negative (Negative) 06/24/24 19:42 RSV (PCR) Positive (Negative) A 06/24/24 19:42 SARS-CoV-2 (PCR) Negative (Negative) 06/24/24 19:42 Vitals Last Vital Signs Temp 97.4 F L 06/28/24 07:39 Pulse 71 06/28/24 08:00 Resp 18 06/28/24 08:00 BP 122/62 06/28/24 07:39 Pulse Ox 96 06/28/24 08:00 O2 Del Method Nasal Cannula 06/28/24 08:00 O2 Flow Rate 5 06/28/24 08:00 Discharge Plan Discharge Patient Disposition: Home Condition: Stable Prescriptions: New benzonatate 100 mg Capsule 100 mg PO TID PRN (Reason: Cough) 5 Days Qty: 15 0RF doxycycline hyclate 100 mg tablet 100 mg PO BID 5 Days Qty: 10 0RF prednisone 20 mg tablet 20 mg PO BID 5 Days Qty: 10 0RF Continued tramadol 50 mg tablet 50 mg PO TID PRN (Reason: Pain, Moderate) diltiazem HCl 180 mg capsule,extended release 24hr 180 mg PO DAILY Qty: 30 3RF albuterol sulfate 90 mcg/actuation HFA aerosol inhaler 2 inh inhalation Q4H PRN (Reason: shortness of breath or wheezing) Qty: 6.7 0RF albuterol sulfate 2.5 mg /3 mL (0.083 %) solution for nebulization 2.5 mg inhalation Q8H PRN (Reason: bronchospasm) 10 Days Qty: 90 0RF furosemide 20 mg tablet 20 mg PO DAILY Qty: 90 3RF gabapentin 300 mg Capsule 300 mg PO DAILY atorvastatin 40 mg Tablet 40 mg PO QPM lamotrigine 200 mg Tablet 200 mg PO BID estradiol 1 mg Tablet 1.5 mg PO DAILY Rx Instructions: off 1 week; repeat cycle baclofen 10 mg Tablet 10 mg PO BEDTIME pantoprazole [Protonix] 40 mg Tablet,Delayed Release (Dr/Ec) 40 mg PO DAILY lisinopril 5 mg Tablet 5 mg PO BEDTIME Trelegy Ellipta 100-62.5-25 mcg Blister With Device 1 inh INHALATION DAILY Changed potassium chloride 8 mEq Capsule, Extended Release 8 meq PO DAILY 30 Days Qty: 30 0RF Discontinued azithromycin 250 mg tablet See Rx Instructions PO .COMPLEX Qty: 6 0RF Rx Instructions: take 500 mg today (day 1), then 250 mg for 4 days (days 2-5) PO Discharge Orders: Discharge Order (Routine); Ordered 06/28/24 Ordered By: Sherif Sparks Referrals: Roberto Pettit FNP [Primary Care Provider] - Enrique Mcintyre MD, MBBS, MPH [Referring] - 1 week Discharge Diet: Cardiac Discharge Activity: Resume usual activity Patient Instructions: Opioid Safety Activity Restrictions/Additional Instructions: - Please stop smoking -Please follow-up with primary care provider 1 week -Please follow-up with pulmonary in [place] Discharge Attestations Time Spent in Discharge Care*: greater than 30 min Time Spent in Smoking Cessation: more than 10 minutes Quality Metrics Clinical Quality Measures [ No reported AMI, CVA or VTE this stay] Coding Level of Care Code 29240 Total time (in minutes) for Discharge: 45 Diagnoses Abuse of smoked substance F18.10 Essential hypertension I10 SVT (supraventricular tachycardia) I47.1 Chronic cluster headache, not intractable G44.029 Headache type: cluster Headache chronicity pattern: chronic headache Intractability: not intractable 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
--- NOTE | 2024-06-28 12:39 | PC.NURSE ---
Referral faxed to [facility] prior to d/c.
== END 2024-06-28 16:58 | disposition home or self-care (01) ==
LOC: ER 22:41 → MEDSURG 22:43
PROVIDERS: Emergency Medicine; Internal Medicine; Admitting Provider Internal Medicine; Emergency Provider Emergency Medicine; PCP Registered Nurse; Visit Provider Family Medicine
DX: J96.01 Acute respiratory failure with hypoxia (principal); J44.1 Chronic obstructive pulmonary disease with (acute) exacerbation; J20.5 Acute bronchitis due to respiratory syncytial virus; G44.029 Chronic cluster headache, not intractable; I47.10 Supraventricular tachycardia, unspecified; F17.210 Nicotine dependence, cigarettes, uncomplicated; F19.10 Other psychoactive substance abuse, uncomplicated; G47.33 Obstructive sleep apnea (adult) (pediatric); G25.81 Restless legs syndrome; I10 Essential (primary) hypertension; J15.9 Unspecified bacterial pneumonia; G40.219 Localization-related (focal) (partial) symptomatic epilepsy and epileptic syndromes with complex partial seizures, intractable, without status epilepticus; Z79.899 Other long term (current) drug therapy; Z88.2 Allergy status to sulfonamides; Z88.8 Allergy status to other drugs, medicaments and biological substances; Z88.5 Allergy status to narcotic agent; Z85.828 Personal history of other malignant neoplasm of skin; Z90.710 Acquired absence of both cervix and uterus; Z11.52 Encounter for screening for COVID-19
CPT/HCPCS: 36415; 71045; 71275; 80048; 80053; 83605; 83735; 84145; 85025; 86140; 87040; 87637; 94640; 94760; 96365; 96372; 96375; 96376; 99285; G0378; J0456; J0696; J1650; J2919; J7050; J7626

== ENCOUNTER → 2024-06-25 07:44 | Outpatient (BNVA) | payer MEDICARE, SELFPAY | PROVIDERS: PCP Registered Nurse; Visit Provider Registered Nurse | DX: J06.9 Acute upper respiratory infection, unspecified (principal) | CPT/HCPCS: 87400 ==

== ENCOUNTER → 2024-07-04 09:46 | Outpatient (BNVA) | payer MEDICARE, SELFPAY | PROVIDERS: PCP Registered Nurse; Visit Provider Specialist | DX: G40.219 Localization-related (focal) (partial) symptomatic epilepsy and epileptic syndromes with complex partial seizures, intractable, without status epilepticus (principal); G40.109 Localization-related (focal) (partial) symptomatic epilepsy and epileptic syndromes with simple partial seizures, not intractable, without status epilepticus; F17.210 Nicotine dependence, cigarettes, uncomplicated; G47.33 Obstructive sleep apnea (adult) (pediatric); J21.0 Acute bronchiolitis due to respiratory syncytial virus; G43.711 Chronic migraine without aura, intractable, with status migrainosus | CPT/HCPCS: 99215 ==

== ENCOUNTER → 2024-08-02 09:44 | Outpatient (BNVA) | payer MEDICARE, SELFPAY | PROVIDERS: PCP Registered Nurse; Visit Provider Registered Nurse | DX: R60.0 Localized edema (principal) | CPT/HCPCS: 80048; 83880 ==

== ENCOUNTER 2024-08-14 10:57 | Outpatient (CLI) | payer MEDICARE, SELFPAY ==
[2024-08-14 11:17] VITALS: PULSE 61; RESP 18; O2SAT 98
[2024-08-14] MEDS: albuterol 2.5 mg/3 mL Neb INHALATION (11:17)
== END 2024-08-14 10:58 | disposition home or self-care (01) ==
LOC: RT 10:58
PROVIDERS: PCP Registered Nurse; Visit Provider Registered Nurse
DX: J44.1 Chronic obstructive pulmonary disease with (acute) exacerbation (principal); R94.2 Abnormal results of pulmonary function studies
CPT/HCPCS: 94060; 94726; 94729; J7613

== ENCOUNTER 2024-08-29 11:55 | Outpatient (CLI) | payer MEDICARE, SELFPAY ==
--- NOTE | 2024-08-29 11:40 | MM_ITS ---
WS: [id number] BILATERAL 3D TOMOSYNTHESIS DIGITAL SCREENING MAMMOGRAPHY WITH CAD CLINICAL INFORMATION: SCREENING HISTORY: Screening mammogram. No current complaints. COMPARISON: 2023 TECHNIQUE: Bilateral CC and MLO views. FINDINGS: Scattered fibroglandular densities bilaterally. No suspicious focal mass, asymmetry, calcifications, or architectural distortion. No evidence of malignancy. Punctate calcification RIGHT breast MM/MM scr BI tomosynthesis [id number] IMPRESSION: DENSITY: There are scattered areas of fibroglandular density. BI-RADS: 2 - Benign. FOLLOW UP: 1 Year Follow-up Recommend return to annual screening mammography.
== END 2024-08-29 11:56 | disposition home or self-care (01) ==
PROVIDERS: PCP Registered Nurse; Visit Provider Registered Nurse
DX: Z12.31 Encounter for screening mammogram for malignant neoplasm of breast (principal); R92.323 Mammographic fibroglandular density, bilateral breasts; R92.1 Mammographic calcification found on diagnostic imaging of breast
CPT/HCPCS: 77063; 77067

== ENCOUNTER → 2024-10-17 09:52 | Outpatient (BNVA) | payer MEDICARE, SELFPAY | PROVIDERS: PCP Registered Nurse; Visit Provider Specialist | DX: G40.109 Localization-related (focal) (partial) symptomatic epilepsy and epileptic syndromes with simple partial seizures, not intractable, without status epilepticus (principal); G43.711 Chronic migraine without aura, intractable, with status migrainosus; F17.210 Nicotine dependence, cigarettes, uncomplicated; G47.33 Obstructive sleep apnea (adult) (pediatric); J21.0 Acute bronchiolitis due to respiratory syncytial virus | CPT/HCPCS: 99213 ==

== ENCOUNTER → 2024-11-20 11:35 | Outpatient (BNVA) | payer MEDICARE, SELFPAY | PROVIDERS: PCP Registered Nurse; Visit Provider Internal Medicine Cardiovascular Disease | DX: I47.10 Supraventricular tachycardia, unspecified (principal); E78.2 Mixed hyperlipidemia; I95.89 Other hypotension | CPT/HCPCS: 99214 ==

== ENCOUNTER → 2024-12-27 14:26 | Outpatient (BNVA) | payer MEDICARE, SELFPAY | PROVIDERS: PCP Registered Nurse; Visit Provider Internal Medicine | DX: J44.9 Chronic obstructive pulmonary disease, unspecified (principal); G47.33 Obstructive sleep apnea (adult) (pediatric); Z99.81 Dependence on supplemental oxygen; Z87.891 Personal history of nicotine dependence | CPT/HCPCS: 99204 ==